=== PATIENT | male | born 1935 | race Caucasian/White ===

== ENCOUNTER 2018-11-02 08:14 | Emergency (ER) | payer MEDICARE, BC ==
[2018-11-02] MEDS ORDERED: Furosemide 40 MG/4 ML VIAL IVPUSH ONE (08:29)
[2018-11-02] MEDS ORDERED: Sodium Chloride 0.9% 10 ML Syringe FLUSH PRN (08:29)
[2018-11-02] MEDS ORDERED: Sodium Chloride 0.9% 2.5 ML Syringe FLUSH PRN (08:29)
[2018-11-02] MEDS ORDERED: Albuterol/Ipratropium 3.0-0.5 MG/3 ML Neb Soln NEB ONE (08:45)
[2018-11-02 09:04] LABS: CHLORIDE,CL 103 mmol/L (98-107); SODIUM,NA 141 mmol/L (136-148)
--- NOTE | 2018-11-02 09:44 | CR ---
HISTORY: Chest pain and shortness of breath. TECHNIQUE: One view of the chest. COMPARISON: No prior. FINDINGS: Cardiac size and pulmonary vasculature within normal limits. There is no consolidation or pulmonary edema. No pneumothorax or significant pleural effusion. IMPRESSION: No acute disease. Dictated by Tre Mukherjee MD @ 11/02/2018 9:41:02 AM Dictated by: Tre Mukherjee MD @ 11/02/2018 09:41:04 (Electronically Signed)
--- NOTE | 2018-11-02 11:02 | EDM.PDOC ---
ED HPI GENERAL MEDICAL PROBLEM - General Chief Complaint: Lower Extremity Injury/Pain Stated Complaint: LEG SWELLING AND PAIN SHORTNESS OF BREATH Time Seen by Provider: 11/02/18 08:18 Source of Information: Reports: Patient History Limitations: Reports: No Limitations - History of Present Illness INITIAL COMMENTS - FREE TEXT/NARRATIVE: History of present illness: []Patient comes in complaining of shortness of breath due to bloating in his abdomen and bilateral leg swelling that is worsening. He denies any chest or abdominal pain, fevers, chills, vomiting or diarrhea. Patient currently uses a CPAP machine at night but after a few minutes he gets claustrophobic and takes it off. Review of systems: As per history of present illness and below otherwise all systems reviewed and negative. Past medical history: As per history of present illness and as reviewed below otherwise noncontributory. Surgical history: As per history of present illness and as reviewed below otherwise noncontributory. Social history: No reported history of drug or alcohol abuse. Family history: As per history of present illness and as reviewed below otherwise noncontributory. Physical exam: General: Well developed, well nourished in NAD HEENT: Atraumatic, normocephalic, pupils reactive, negative for conjunctival pallor or scleral icterus, mucous membranes moist, throat clear, neck supple, nontender, trachea midline. Lungs: Clear to auscultation, no rales or wheezing breath sounds equal bilaterally, chest nontender. Heart: S1S2, regular, negative for clicks, rubs, or JVD. Bilateral 2+ lower leg edema Abdomen: Protuberant NABS, Soft, nondistended, nontender no rebound or guarding. Negative for masses or hepatosplenomegaly. Negative for costovertebral tenderness. Pelvis: Stable nontender. Genitourinary: Deferred. Rectal: Deferred. Extremities: Atraumatic, negative for cords or calf pain. Neurovascular unremarkable. Neuro: Awake, alert, oriented. Cranial nerves II through XII unremarkable. Cerebellum unremarkable. Motor and sensory unremarkable throughout. Exam nonfocal. Skin:warm and dry Diagnostics: EKG, chest x-ray CBC, chemistry, BNP, bilateral venous Doppler ultrasounds-all results are negative Therapeutics: DuoNeb given, Lasix ED Course: Stable, I offered admission to this patient as his O2 sats on oxygen approximately 93-94 but dropped into the high 80s on room air. He states he has oxygen at home does not want to be admitted and wants to follow-up his primary care. Impression: Bilateral lower extremity edema, COPD Prescriptions: None Plan: Patient has an appointment with Dr. Keys this week urged him to follow-up and to return to ER if symptoms worsen or change. Definitive disposition and diagnosis as appropriate pending reevaluation and review of above. Bilateral Knee Pain Score (Numeric/FACES): 8 - Related Data Allergies Allergy/AdvReac Type Severity Reaction Status Date / Time fish, paddle Allergy Abdominal Uncoded 11/02/18 08:30 Cramps Home Meds: Home Meds Albuterol Sulfate [Albuterol Sulfate HFA] 2.5 ml INH QID PRN 11/12/14 [History] Aspirin 81 mg PO DAILY 11/12/14 [History] Calcium Carbonate [Calcium] 500 mg PO DAILY 01/11/16 [History] Furosemide 40 mg PO BID PRN 01/11/16 [History] Omeprazole 40 mg PO ACBREAKFAST 01/11/16 [History] Potassium Chloride 20 meq PO DAILY 01/11/16 [History] Pramipexole Di-HCl [Pramipexole Dihydrochloride] 1 - 2 mg PO BEDTIME 03/13/18 [ History] Budesonide/Formoterol [Symbicort 160-4.5 MCG] 1 puff INH ASDIRECTED #1 inhaler 03/16/18 [Rx] Cephalexin [Keflex] 500 mg PO TID #30 capsule 11/02/18 [Rx] Past Medical History - Past Health History Medical/Surgical History: Denies Medical/Surgical History HEENT History: Reports: Hard of Hearing Other HEENT 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, 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 Cardiovascular History: Reports: None, SOB on Exertion Respiratory History: Reports: COPD, Sleep Apnea, SOB Other Respiratory History: Sleep apnea with CPAP Gastrointestinal History: Reports: GERD Other Genitourinary History: hx: Balanitis, nocturia Musculoskeletal History: Reports: Arthritis, Osteoarthritis Other Musculoskeletal History: hx: Concussion and they had to drill holes in head to relieve pressure (Many yrs ago), Low back pain, limited walking (has not been able to Golf), Arthritits to LEFT Knee Other Neuro History: Restless Legs Psychiatric History: Reports: None Endocrine/Metabolic History: Reports: Obesity/BMI 30+ Hematologic History: Reports: None Immunologic History: Reports: None Oncologic (Cancer) History: Reports: None Other Oncologic History: Several areas froze off his face Dermatologic History: Reports: Venous Stasis Dermatitis Other Dermatologic History: Thin delicate skin, has been on prednisone - Infectious Disease History Infectious Disease History: Reports: None - Past Surgical History HEENT Surgical History: Reports: Oral Surgery Cardiovascular Surgical History: Reports: None Respiratory Surgical History: Reports: None GI Surgical History: Reports: Colonoscopy Endocrine Surgical History: Reports: None Other Neurological Surgeries/Procedures: brain surgery Musculoskeletal Surgical History: Reports: Knee Replacement Other Musculoskeletal Surgeries/Procedures:: Right Total Knee Replacement - History Comment History Comment: ETOH UNKNOWN Social & Family History - Family History Family Medical History: Noncontributory Dermatologic: Reports: Other (See Below) Other Dermatologic Family History: Client stated, "I don't remember what my family from." - Tobacco Use Smoking Status *Q: Never Smoker Second Hand Smoke Exposure: No - Caffeine Use Caffeine Use: Reports: Coffee - Recreational Drug Use Recreational Drug Use: No - Living Situation & Occupation Living situation: Reports: , with Spouse Review of Systems - Review of Systems Review Of Systems: ROS reveals no pertinent complaints other than HPI. ED EXAM, GENERAL - Physical Exam Exam: See Below (See history of present illness) Course - Vital Signs Last Recorded V/S: Last Vital Signs Temp 96.9 F 11/02/18 08:28 Pulse 87 11/02/18 10:20 Resp 18 11/02/18 10:20 BP 133/72 11/02/18 10:20 Pulse Ox 91 L 11/02/18 10:20 - Orders/Labs/Meds Orders: Active Orders 24 hr Category Date Time Status EKG Documentation Completion [RC] STAT Care 11/02/18 08:29 Active Oxygen Therapy, ED [RC] ASDIRECTED Care 11/02/18 10:09 Active RT Aerosol Therapy [RC] ASDIRECTED Care 11/02/18 08:45 Active Venous Doppler Lwr Ext Bi [US] Stat Exams 11/02/18 09:20 Taken Sodium Chloride 0.9% [Saline Flush] Med 11/02/18 08:29 Active 10 ml FLUSH ASDIRECTED PRN Sodium Chloride 0.9% [Saline Flush] Med 11/02/18 08:29 Active 2.5 ml FLUSH ASDIRECTED PRN Saline Lock Insert [OM.PC] Stat Oth 11/02/18 08:29 Ordered Medication Orders Sodium Chloride (Saline Flush) 10 ml FLUSH ASDIRECTED PRN PRN Reason: Keep Vein Open Last Admin: 11/02/18 08:42 Dose: 10 ml Sodium Chloride (Saline Flush) 2.5 ml FLUSH ASDIRECTED PRN PRN Reason: Keep Vein Open Last Admin: 11/02/18 08:42 Dose: 2.5 ml Labs: Laboratory Tests 11/02/18 11/02/18 11/02/18 Range/Units 08:35 08:35 08:35 WBC 5.01 (4.0-11.0) K/uL RBC 3.71 L (4.50-5.90) M/uL Hgb 12.7 L (13.0-17.0) g/dL Hct 39.1 (38.0-50.0) % MCV 105.4 H (80.0-98.0) fL MCH 34.2 H (27.0-32.0) pg MCHC 32.5 (31.0-37.0) g/dL RDW Std Deviation 61.8 (28.0-62.0) fl RDW Coeff of Yared 16 H (11.0-15.0) % Plt Count 164 (150-400) K/uL MPV 10.30 (7.40-12.00) fL Neut % (Auto) 58.5 (48.0-80.0) % Lymph % (Auto) 25.3 (16.0-40.0) % [place] % (Auto) 13.4 (0.0-15.0) % Eos % (Auto) 2.4 (0.0-7.0) % Baso % (Auto) 0.4 (0.0-1.5) % Neut # (Auto) 2.9 (1.4-5.7) K/uL Lymph # (Auto) 1.3 (0.6-2.4) K/uL [place] # (Auto) 0.7 (0.0-0.8) K/uL Eos # (Auto) 0.1 (0.0-0.7) K/uL Baso # (Auto) 0.0 (0.0-0.1) K/uL Nucleated RBC % 0.0 /100WBC Nucleated RBCs # 0 K/uL Sodium 141 (136-148) mmol/L Potassium 3.8 (3.5-5.1) mmol/L Chloride 103 (98-107) mmol/L Carbon Dioxide 30.1 (21.0-32.0) mmol/L BUN 26 H (7.0-18.0) mg/dL Creatinine 1.0 (0.8-1.3) mg/dL Est Cr Clr Drug Dosing 55.97 mL/min Estimated GFR (MDRD) > 60.0 ml/min Glucose 136 H (74-106) mg/dL Calcium 9.0 (8.5-10.1) mg/dL Total Bilirubin 0.8 (0.2-1.0) mg/dL AST 30 (15-37) IU/L ALT 24 (14-63) IU/L Alkaline Phosphatase 72 (46-116) U/L B-Natriuretic Peptide 40 (<100) PG/ML Total Protein 7.2 (6.4-8.2) g/dL Albumin 3.7 (3.4-5.0) g/dL Globulin 3.5 (2.6-4.0) g/dL Albumin/Globulin Ratio 1.1 (0.9-1.6) Meds: Medications Generic Name Dose Route Start Last Admin Trade Name Freq PRN Reason Stop Dose Admin Sodium Chloride 10 ml 11/02/18 08:29 11/02/18 08:42 Saline Flush FLUSH 10 ml ASDIRECTED PRN Administration Keep Vein Open Sodium Chloride 2.5 ml 11/02/18 08:29 11/02/18 08:42 Saline Flush FLUSH 2.5 ml ASDIRECTED PRN Administration Keep Vein Open Discontinued Medications Generic Name Dose Route Start Last Admin Trade Name Freq PRN Reason Stop Dose Admin Albuterol/Ipratropium 3 ml 11/02/18 08:45 11/02/18 08:56 Duoneb 3.0-0.5 Mg/3 Ml NEB 11/02/18 08:46 3 ml ONETIME ONE Administration Furosemide 40 mg 11/02/18 08:29 11/02/18 08:42 Lasix IVPUSH 11/02/18 08:30 40 mg NOW ONE Administration Departure - Departure Time of Disposition: 11:01 Disposition: Home, Self-Care 01 Condition: Good, Fair Clinical Impression: COPD exacerbation, Bilateral lower extremity edema - Discharge Information *PRESCRIPTION DRUG MONITORING PROGRAM REVIEWED*: No *COPY OF PRESCRIPTION DRUG MONITORING REPORT IN PATIENT MICHELLE: No Prescriptions: Cephalexin [Keflex] 500 mg PO TID #30 capsule Referrals: PCP,Unknown [Primary Care Provider] - Forms: ED Department Discharge Additional Instructions: The following information is given to patients seen in the emergency department who are being discharged to home. This information is to outline your options for follow-up care. We provide all patients seen in our emergency department with a follow-up referral. The need for follow-up, as well as the timing and circumstances, are variable depending upon the specifics of your emergency department visit. If you don't have a primary care physician on staff, we will provide you with a referral. We always advise you to contact your personal physician following an emergency department visit to inform them of the circumstance of the visit and for follow-up with them and/or the need for any referrals to a consulting specialist. The emergency department will also refer you to a specialist when appropriate. This referral assures that you have the opportunity for follow-up care with a specialist. All of these measure are taken in an effort to provide you with optimal care, which includes your follow-up. Under all circumstances we always encourage you to contact your private physician who remains a resource for coordinating your care. When calling for follow-up care, please make the office aware that this follow-up is from your recent emergency room visit. If for any reason you are refused follow-up, please contact the [facility] Emergency Department at and asked to speak to the emergency department charge nurse. Take meds as directed, follow up with your primary care physician, return to ER if symptoms worsen or change. [facility] [address] [place] [id number] - My Orders Last 24 Hours: My Active Orders 11/02/18 08:29 EKG Documentation Completion [RC] STAT Sodium Chloride 0.9% [Saline Flush] 10 ml FLUSH ASDIRECTED PRN Sodium Chloride 0.9% [Saline Flush] 2.5 ml FLUSH ASDIRECTED PRN Saline Lock Insert [OM.PC] Stat 11/02/18 08:45 RT Aerosol Therapy [RC] ASDIRECTED 11/02/18 09:20 Venous Doppler Lwr Ext Bi [US] Stat 11/02/18 10:09 Oxygen Therapy, ED [RC] ASDIRECTED - Assessment/Plan Last 24 Hours: My Active Orders 11/02/18 08:29 EKG Documentation Completion [RC] STAT Sodium Chloride 0.9% [Saline Flush] 10 ml FLUSH ASDIRECTED PRN Sodium Chloride 0.9% [Saline Flush] 2.5 ml FLUSH ASDIRECTED PRN Saline Lock Insert [OM.PC] Stat 11/02/18 08:45 RT Aerosol Therapy [RC] ASDIRECTED 11/02/18 09:20 Venous Doppler Lwr Ext Bi [US] Stat 11/02/18 10:09 Oxygen Therapy, ED [RC] ASDIRECTED
[2018-11-02 11:12] VITALS: BP 151/78
--- NOTE | 2018-11-02 15:45 | US ---
INDICATION: Bilateral lower extremity pain and swelling TECHNIQUE: : Ultrasound venous duplex lower extremity bilateral. Compression venous exam was performed using parsons-scale, color Doppler, and spectral Doppler imaging. COMPARISON: FINDINGS: Sonographic imaging demonstrates the common femoral, deep femoral, superficial femoral, popliteal, posterior tibial and greater saphenous veins to be fully compressible with normal color Doppler blood flow in both lower extremities. Distal bilateral lower extremity edema is noted. IMPRESSION: Normal bilateral lower extremity venous ultrasound, no sign of deep venous thrombosis. Dictated by Iván Hamlin MD @ 11/02/2018 10:49:26 AM Dictated by: Iván Hamlin MD @ 11/02/2018 10:49:37 (Electronically Signed)
== END 2018-11-02 11:14 | disposition home or self-care (01) ==
LOC: MW.ED 08:14
DX: J44.1 Chronic obstructive pulmonary disease with (acute) exacerbation (principal); R60.0 Localized edema; E66.9 Obesity, unspecified; Z79.82 Long term (current) use of aspirin; Z79.899 Other long term (current) drug therapy; Z68.42 Body mass index [BMI] 45.0-49.9, adult
CPT/HCPCS: 36415; 71045; 80053; 83880; 85025; 93005; 93970; 94640; 96374; 99284; J1940; J7620-GY

== ENCOUNTER 2019-10-22 17:33 | Observation (INO) | payer MEDICARE, BC ==
[2019-10-22] MEDS ORDERED: cefTRIAXone 2 GM in Premix Bag 1 BAG IV ONE (18:45)
--- NOTE | 2019-10-22 18:52 | EDM.PDOC ---
<Wilver Alonso - Last Filed: 10/22/19 18:47> ED HPI GENERAL MEDICAL PROBLEM - General Chief Complaint: Skin Complaint Stated Complaint: sick Time Seen by Provider: 10/22/19 17:57 - History of Present Illness INITIAL COMMENTS - FREE TEXT/NARRATIVE: HISTORY AND PHYSICAL: History of present illness: This 83-year-old male presents emergency department left leg pain. Patient states it is severe in nature. He has had cellulitis before and has been hospitalized for this. He complains that he is now having extreme left-sided leg pain. He denies any current fever. He states that the pain comes and goes. It is in the left leg and radiates from the calf up towards the thigh. Review of systems: A 10-point review of systems, other than pertinent positives and negatives as stated per HPI, is otherwise negative. Past medical history: As per history of present illness and as reviewed below otherwise noncontributory. Surgical history: As per history of present illness and as reviewed below otherwise noncontributory. Social history: No reported history of drug or alcohol abuse. Family history: As per history of present illness and as reviewed below otherwise noncontributory. Physical exam: VITAL SIGNS: Reviewed. GENERAL: Appears very uncomfortable. HEAD: No signs of head trauma. EYES: Pupils are equal. Extraocular motions intact. EARS: Hearing grossly intact. MOUTH: Oropharynx is normal. NECK: No adenopathy, no JVD. CHEST: Mild tachypnea. Diminished breath sounds in the bases. I do not appreciate any adventitious breath sounds. CARDIAC: Regular rate and rhythm. Normal S1 and S2, without murmurs, gallops, or rubs. VASCULAR: Peripheral pulses normal and equal in all extremities. ABDOMEN: Soft, without detectable tenderness. No sign of distention. No rebound or guarding, and no masses palpated. MUSCULOSKELETAL: Good range of motion of all major joints. Extremities without clubbing, cyanosis or edema. NEUROLOGIC EXAM: Alert and oriented x 3. No focal sensory or motor deficits. Speech normal. Follows commands. PSYCHIATRIC: Mood normal. SKIN: Bilateral lower extremity hemosiderin deposition. There is some scalded skin appearance to both legs worse on the left than on the right. There is a significant amount of discoloration in bilateral pedal edema. Initial Differential Diagnosis & Plan: The patient has an erythematous left lower extremity. The rash is not pruritic. Differential diagnosis: -Necrotizing fascitis was considered. There does not appear to be disproportionate pain, dusky appearance, induration, crepitus, bullae, ecchymoses, or pain beyond the visibly affected area -DVT was considered, and I have ordered a lower extremity ultrasound. -abscess was considered, but there is no fluctuance, drainage, or induration. -cellulitis appears to be the most likely explanation of the patient's symptoms. I also considered pseudo-cellulitis, this would normally be seen as bilateral edema. This is highly suspicious in this patient. Other impersonator's of cellulitis were also considered including lipodermatosclerosis, erysipelas, contact dermatitis, or metal hypersensitivity , lymphedema, gout, erythema migrans, and cryptococcal cellulitis (seen with AIDS patients). I doubt calciphylaxis given that the patient does not have end-stage renal disease, liver disease or taking warfarin. I will be turning over patient care to Dr. Juanpablo Sanchez, DO Definitive disposition and diagnosis as appropriate pending reevaluation and review of above. Bilateral Lower Leg Pain Score (Numeric/FACES): 4 - Related Data Allergies Allergy/AdvReac Type Severity Reaction Status Date / Time fish, paddle Allergy Abdominal Uncoded 10/22/19 22:39 Cramps Home Meds: Home Meds Albuterol Sulfate [Albuterol Sulfate HFA] 2.5 ml INH QID PRN 11/12/14 [History] Calcium Carbonate [Calcium] 500 mg PO DAILY 01/11/16 [History] Furosemide 60 mg PO DAILY PRN 01/11/16 [History] Omeprazole 40 mg PO ACBREAKFAST 01/11/16 [History] Potassium Chloride 20 meq PO DAILY 01/11/16 [History] Pramipexole Di-HCl [Pramipexole Dihydrochloride] 1 - 2 mg PO BEDTIME 03/13/18 [ History] Albuterol/Ipratropium [DuoNeb 3.0-0.5 MG/3 ML] 3 ml NEB QID 10/22/19 [History] Aspirin 81 mg PO DAILY 10/22/19 [History] Fish Oil/Kegley-3 Fatty Acids [Fish Oil 1,000 MG] 1 each PO DAILY 10/22/19 [ History] Fluticasone/Umeclidin/Vilanter [Trelegy Ellipta 100-62.5-25 MCG] 1 puff INH ONETIME 10/22/19 [History] Magnesium 30 mg PO DAILY 10/22/19 [History] Past Medical History - Past Health History Medical/Surgical History: Denies Medical/Surgical History HEENT History: Reports: Hard of Hearing Other HEENT 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, 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 Cardiovascular History: Reports: None, SOB on Exertion Respiratory History: Reports: COPD, Sleep Apnea, SOB Other Respiratory History: Sleep apnea with CPAP Gastrointestinal History: Reports: GERD Other Genitourinary History: hx: Balanitis, nocturia Musculoskeletal History: Reports: Arthritis, Osteoarthritis Other Musculoskeletal History: hx: Concussion and they had to drill holes in head to relieve pressure (Many yrs ago), Low back pain, limited walking (has not been able to Golf), Arthritits to LEFT Knee Neurological History: Reports: Other (See Below) Other Neuro History: Restless Legs Psychiatric History: Reports: None Endocrine/Metabolic History: Reports: Obesity/BMI 30+ Hematologic History: Reports: None Immunologic History: Reports: None Oncologic (Cancer) History: Reports: None Other Oncologic History: Several areas froze off his face Dermatologic History: Reports: Venous Stasis Dermatitis Other Dermatologic History: Thin delicate skin - Infectious Disease History Infectious Disease History: Reports: Chicken Pox, Influenza, Measles, Mumps - Past Surgical History HEENT Surgical History: Reports: Oral Surgery Cardiovascular Surgical History: Reports: None Respiratory Surgical History: Reports: None GI Surgical History: Reports: Colonoscopy Endocrine Surgical History: Reports: None Other Neurological Surgeries/Procedures: brain surgery Musculoskeletal Surgical History: Reports: Knee Replacement Other Musculoskeletal Surgeries/Procedures:: Right Total Knee Replacement - History Comment History Comment: ETOH UNKNOWN Social & Family History - Family History Family Medical History: Noncontributory Dermatologic: Reports: Other (See Below) Other Dermatologic Family History: Client stated, "I don't remember what my family from." - Tobacco Use Smoking Status *Q: Former Smoker Used Tobacco, but Quit: Yes Month/Year Tobacco Last Used: 05/1979 Second Hand Smoke Exposure: No - Caffeine Use Caffeine Use: Reports: Coffee - Recreational Drug Use Recreational Drug Use: No - Living Situation & Occupation Living situation: Reports: , with Spouse Course - Vital Signs Last Recorded V/S: Last Vital Signs Temp 36.7 C 10/22/19 22:00 Pulse 67 10/22/19 22:00 Resp 22 H 10/22/19 22:00 BP 140/69 10/22/19 22:00 Pulse Ox 92 L 10/22/19 22:00 - Orders/Labs/Meds Orders: Active Orders 24 hr Category Date Time Status EKG 12 Lead [EKG Documentation Completion] [RC] STAT Care 10/22/19 18:44 Active CULTURE BLOOD [BC] Stat Lab 10/22/19 19:08 Received CULTURE BLOOD [BC] Stat Lab 10/22/19 19:21 Received CULTURE URINE [RM] Stat Lab 10/22/19 21:00 Received Blood Culture x2 Reflex Set [OM.PC] Stat Oth 10/22/19 18:45 Ordered Medication Orders Albuterol (Proventil Hfa) gm INH QID PRN PRN Reason: Shortness of Breath Albuterol/Ipratropium (Duoneb 3.0-0.5 Mg/3 Ml) 3 ml NEB QID KIRAN Last Admin: 10/23/19 00:26 Dose: 3 ml Aspirin (Aspirin) 81 mg PO DAILY KIRAN Calcium Carbonate/Glycine (Tums) 500 mg PO DAILY KIRAN Furosemide (Lasix) 60 mg PO DAILY PRN PRN Reason: Edema Heparin Sodium (Porcine) (Heparin Sodium) 5,000 units SUBCUT Q12HR [facility] Omeprazole (Omeprazole) 40 mg PO ACBREAKFAST [facility] Potassium Chloride (Klor-Con M20) 20 meq PO DAILY [facility] Pramipexole Dihydrochloride (Mirapex) 1 mg PO BEDTIME [facility] Labs: Laboratory Tests 10/22/19 10/22/19 10/22/19 Range/Units 19:08 19:08 19:08 WBC 7.06 (4.0-11.0) K/uL RBC 3.89 L (4.50-5.90) M/uL Hgb 13.4 (13.0-17.0) g/dL Hct 40.4 (38.0-50.0) % MCV 103.9 H (80.0-98.0) fL MCH 34.4 H (27.0-32.0) pg MCHC 33.2 (31.0-37.0) g/dL RDW Std Deviation 58.1 (28.0-62.0) fl RDW Coeff of Yared 15 (11.0-15.0) % Plt Count 181 (150-400) K/uL MPV 10.00 (7.40-12.00) fL Neut % (Auto) 61.6 (48.0-80.0) % Lymph % (Auto) 23.7 (16.0-40.0) % Walker % (Auto) 12.3 (0.0-15.0) % Eos % (Auto) 1.8 (0.0-7.0) % Baso % (Auto) 0.6 (0.0-1.5) % Neut # (Auto) 4.4 (1.4-5.7) K/uL Lymph # (Auto) 1.7 (0.6-2.4) K/uL Walker # (Auto) 0.9 H (0.0-0.8) K/uL Eos # (Auto) 0.1 (0.0-0.7) K/uL Baso # (Auto) 0.0 (0.0-0.1) K/uL Nucleated RBC % 0.0 /100WBC Nucleated RBCs # 0 K/uL Lactate 0.9 (0.20-2.00) mmol/L Sodium 140 (136-148) mmol/L Potassium 3.5 (3.5-5.1) mmol/L Chloride 101 (98-107) mmol/L Carbon Dioxide 32.8 H (21.0-32.0) mmol/L BUN 17 (7.0-18.0) mg/dL Creatinine 1.1 (0.8-1.3) mg/dL Est Cr Clr Drug Dosing 51.62 mL/min Estimated GFR (MDRD) > 60.0 ml/min Glucose 163 H (74-106) mg/dL Calcium 9.5 (8.5-10.1) mg/dL Magnesium 2.1 (1.8-2.4) mg/dL Total Bilirubin 1.1 H (0.2-1.0) mg/dL AST 31 (15-37) IU/L ALT 30 (14-63) IU/L Alkaline Phosphatase 65 (46-116) U/L Troponin I < 0.050 (0.000-0.056) ng/mL B-Natriuretic Peptide (<100) PG/ML Total Protein 6.5 (6.4-8.2) g/dL Albumin 3.4 (3.4-5.0) g/dL Globulin 3.1 (2.6-4.0) g/dL Albumin/Globulin Ratio 1.1 (0.9-1.6) 10/22/19 Range/Units 19:08 WBC (4.0-11.0) K/uL RBC (4.50-5.90) M/uL Hgb (13.0-17.0) g/dL Hct (38.0-50.0) % MCV (80.0-98.0) fL MCH (27.0-32.0) pg MCHC (31.0-37.0) g/dL RDW Std Deviation (28.0-62.0) fl RDW Coeff of Yared (11.0-15.0) % Plt Count (150-400) K/uL MPV (7.40-12.00) fL Neut % (Auto) (48.0-80.0) % Lymph % (Auto) (16.0-40.0) % Walker % (Auto) (0.0-15.0) % Eos % (Auto) (0.0-7.0) % Baso % (Auto) (0.0-1.5) % Neut # (Auto) (1.4-5.7) K/uL Lymph # (Auto) (0.6-2.4) K/uL Walker # (Auto) (0.0-0.8) K/uL Eos # (Auto) (0.0-0.7) K/uL Baso # (Auto) (0.0-0.1) K/uL Nucleated RBC % /100WBC Nucleated RBCs # K/uL Lactate (0.20-2.00) mmol/L Sodium (136-148) mmol/L Potassium (3.5-5.1) mmol/L Chloride (98-107) mmol/L Carbon Dioxide (21.0-32.0) mmol/L BUN (7.0-18.0) mg/dL Creatinine (0.8-1.3) mg/dL Est Cr Clr Drug Dosing mL/min Estimated GFR (MDRD) ml/min Glucose (74-106) mg/dL Calcium (8.5-10.1) mg/dL Magnesium (1.8-2.4) mg/dL Total Bilirubin (0.2-1.0) mg/dL AST (15-37) IU/L ALT (14-63) IU/L Alkaline Phosphatase (46-116) U/L Troponin I (0.000-0.056) ng/mL B-Natriuretic Peptide 21 (<100) PG/ML Total Protein (6.4-8.2) g/dL Albumin (3.4-5.0) g/dL Globulin (2.6-4.0) g/dL Albumin/Globulin Ratio (0.9-1.6) Meds: Medications Generic Name Dose Route Start Last Admin Trade Name Freq PRN Reason Stop Dose Admin Albuterol gm 10/22/19 22:53 Proventil Hfa INH QID PRN Shortness of Breath Albuterol/Ipratropium 3 ml 10/23/19 00:00 10/23/19 00:26 Duoneb 3.0-0.5 Mg/3 Ml NEB 3 ml QID KIRAN Administration Aspirin 81 mg 10/23/19 09:00 Aspirin PO DAILY [facility] Calcium Carbonate/Glycine 500 mg 10/23/19 09:00 Tums PO DAILY KIRAN Furosemide 60 mg 10/22/19 22:53 Lasix PO DAILY PRN Edema Heparin Sodium (Porcine) 5,000 units 10/23/19 09:00 Heparin Sodium SUBCUT Q12HR [facility] Omeprazole 40 mg 10/23/19 07:30 Omeprazole PO ACBREAKFAST [facility] Potassium Chloride 20 meq 10/23/19 09:00 Klor-Con M20 PO DAILY [facility] Pramipexole Dihydrochloride 1 mg 10/23/19 21:00 Mirapex PO BEDTIME KIRAN Discontinued Medications Generic Name Dose Route Start Last Admin Trade Name Freq PRN Reason Stop Dose Admin Ceftriaxone Sodium/Dextrose 2 50 mls @ 100 mls/hr 10/22/19 18:45 10/22/19 19: 39 gm/ Premix IV 10/22/19 19:14 100 mls/hr ONETIME ONE Administration Oxycodone/Acetaminophen 2 tab 10/22/19 19:51 10/22/19 19:59 Percocet 325-5 Mg PO 10/22/19 19:52 2 tab ONETIME ONE Administration Departure - Departure Disposition: Refer to Observation Clinical Impression: Cellulitis of lower extremity Qualifiers: Laterality: left Qualified Code(s): L03.116 - Cellulitis of left lower limb - Discharge Information Sepsis Event Note - Evaluation Sepsis Screening Result: No Definite Risk - Focused Exam Vital Signs: Vital Signs Temp Pulse Resp BP Pulse Ox 10/22/19 20:19 37.1 C 67 20 100/60 92 L 10/22/19 18:06 37.0 C 78 21 H 138/82 92 L Date Exam was Performed: 10/22/19 Time Exam was Performed: 18:47 <Juanpablo Sanchez - Last Filed: 10/23/19 00:44> ED ROS GENERAL - Review of Systems Review Of Systems: See Below ED EXAM, SKIN/RASH Exam: See Below Course - Vital Signs Text/Narrative:: I assumed care of this patient [address] Alonso. He received antibiotics for cellulitis. There is also some concern for possible DVT, although this could also be venous stasis dermatitis. We are waiting for a DVT ultrasound study and the rest of his labs to return. We are planning for admission. Lactate is normal. CBC shows no leukocytosis. Chest x-ray shows no acute findings. We are waiting for a urinalysis, troponin , magnesium, CMP, and a BMP along with a twelve-lead EKG. 8:25 PM: CBC is reassuring. Lactate is negative. Labs show mild hyperglycemia , mild bilirubin elevation of 1.1. Negative troponin, negative BNP. Awaiting urinalysis. Troponin is negative. Urinalysis has small leukocyte esterase and 1+ bacteria, but the patient denies any dysuria or other symptoms to suggest acute cystitis. He did complain of some persistent pain so I ordered oral Percocet. Given concern for possible cellulitis, will plan to admit the patient to observation status. I spoke with the accepting hospitalist Dr. Brian Cortez who agrees to admit to observation. Departure - Departure Time of Disposition: 19:00 Sepsis Event Note - Focused Exam Date Exam was Performed: 10/23/19 Time Exam was Performed: 00:44
--- NOTE | 2019-10-22 19:08 | CR ---
Chest: Portable view of the chest was obtained. Comparison: Previous chest x-ray of 11/02/18. Lung bases are not optimally seen due to body habitus. Lungs otherwise are clear. Heart size appears within normal limits for portable technique. Tortuous thoracic aorta is seen. Bony structures are grossly intact. Impression: 1. Lung base is not optimally seen due to body habitus. 2. Nothing acute is otherwise appreciated on portable chest x-ray. Diagnostic code #2 This report was dictated in MDT
[2019-10-22 19:42] LABS: BLOOD UREA NITROGEN,BUN 17 mg/dL (7.0-18.0); CARBON DIOXIDE,CO2 32.8 mmol/L (21.0-32.0); CHLORIDE,CL 101 mmol/L (98-107); GLUCOSE RANDOM 163 mg/dL (74-106); POTASSIUM,K 3.5 mmol/L (3.5-5.1); SODIUM,NA 140 mmol/L (136-148)
[2019-10-22] MEDS ORDERED: Acetaminophen/oxyCODONE 325-5 MG Tab PO ONE (19:51)
--- NOTE | 2019-10-22 19:57 | US ---
Bilateral lower extremity deep venous ultrasound: Duplex and color Doppler evaluation was obtained of the right and left common femoral, superficial femoral, popliteal, posterior tibial and anterior tibial veins. Findings: Subcutaneous edema noted within both lower extremities. Normal compression and Doppler blood flow is seen within the deep veins. Impression: 1. Subcutaneous edema within both lower extremities. 2. No findings of deep venous thrombosis is seen within either the right or left lower extremity. Diagnostic code #2 This report was dictated in MDT
[2019-10-22] MEDS ORDERED: Albuterol 8 GM Inhaler INH PRN (22:53)
[2019-10-22] MEDS ORDERED: Furosemide 40 MG Tab PO PRN (22:53)
--- NOTE | 2019-10-22 23:02 | PCM.HP.2 ---
H&P History of Present Illness - General Date of Service: 10/22/19 Admit Problem/Dx: Admission Diagnosis/Problem Admission Diagnosis/Problem Cellulitis - History of Present Illness Initial Comments - Free Text/Narative: 83 yo male with pmh chronic venous stasis to lower legs, COPD, obesity, restless leg syndrome, AMRITA and lymphedema presented who was hospitalized in [place] ten days ago for left leg cellulitis. Yesterday he completed a ten day course of cefdinir. Today he reports pain in his left leg with increased swelling and erythema. He denies any fevers. He was seen in the ED and had a Doppler of the left leg which was negative for DVT. He was given Rocephin for possible cellulitis. He reports that his erythema and edema have returned to normal and the pain has resolved. Bilateral Lower Leg Pain Score (Numeric/FACES): 4 - Related Data Allergies/Adverse Reactions: Allergies Allergy/AdvReac Type Severity Reaction Status Date / Time fish, paddle Allergy Abdominal Uncoded 10/22/19 22:39 Cramps Home Medications: Home Meds Albuterol Sulfate [Albuterol Sulfate HFA] 2.5 ml INH QID PRN 11/12/14 [History] Calcium Carbonate [Calcium] 500 mg PO DAILY 01/11/16 [History] Furosemide 80 mg PO DAILY 01/11/16 [History] Omeprazole 40 mg PO ACBREAKFAST 01/11/16 [History] Potassium Chloride 20 meq PO BID 01/11/16 [History] Pramipexole Di-HCl [Pramipexole Dihydrochloride] 1 - 2 mg PO BEDTIME 03/13/18 [ History] Aspirin 81 mg PO DAILY 10/22/19 [History] Fish Oil/[place]-3 Fatty Acids [Fish Oil 1,000 MG] 1 each PO DAILY 10/22/19 [ History] Fluticasone/Umeclidin/Vilanter [Trelegy Ellipta 100-62.5-25 MCG] 1 puff INH DAILY 10/22/19 [History] Magnesium 400 mg PO DAILY 10/22/19 [History] Acetaminophen/HYDROcodone [[place] 325-5 MG] 1 tab PO Q6H PRN #5 tablet 10/23/19 [ Rx] Ipratropium [Atrovent] 0.5 mg NEB QID 10/23/19 [History] Multivitamin 1 tab PO DAILY 10/23/19 [History] metOLazone [Metolazone] 2.5 mg PO MOWEFR 10/23/19 [History] Past Medical History - Past Health History Medical/Surgical History: Denies Medical/Surgical History HEENT History: Reports: Hard of Hearing Other HEENT 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, 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 Cardiovascular History: Reports: None, SOB on Exertion Respiratory History: Reports: COPD, Sleep Apnea, SOB Other Respiratory History: Sleep apnea with CPAP Gastrointestinal History: Reports: GERD Other Genitourinary History: hx: Balanitis, nocturia Musculoskeletal History: Reports: Arthritis, Osteoarthritis Other Musculoskeletal History: hx: Concussion and they had to drill holes in head to relieve pressure (Many yrs ago), Low back pain, limited walking (has not been able to Golf), Arthritits to LEFT Knee Neurological History: Reports: Other (See Below) Other Neuro History: Restless Legs Psychiatric History: Reports: None Endocrine/Metabolic History: Reports: Obesity/BMI 30+ Hematologic History: Reports: None Immunologic History: Reports: None Oncologic (Cancer) History: Reports: None Other Oncologic History: Several areas froze off his face Dermatologic History: Reports: Venous Stasis Dermatitis Other Dermatologic History: Thin delicate skin - Infectious Disease History Infectious Disease History: Reports: Chicken Pox, Influenza, Measles, Mumps - Past Surgical History HEENT Surgical History: Reports: Oral Surgery Cardiovascular Surgical History: Reports: None Respiratory Surgical History: Reports: None GI Surgical History: Reports: Colonoscopy Endocrine Surgical History: Reports: None Other Neurological Surgeries/Procedures: brain surgery Musculoskeletal Surgical History: Reports: Knee Replacement Other Musculoskeletal Surgeries/Procedures:: Right Total Knee Replacement - History Comment History Comment: ETOH UNKNOWN Social & Family History - Family History Family Medical History: Noncontributory Dermatologic: Reports: Other (See Below) Other Dermatologic Family History: Client stated, "I don't remember what my family from." - Tobacco Use Smoking Status *Q: Former Smoker Used Tobacco, but Quit: Yes Month/Year Tobacco Last Used: 05/1987 Second Hand Smoke Exposure: No - Caffeine Use Caffeine Use: Reports: Coffee - Alcohol Use Days Per Week of Alcohol Use: 1 Number of Drinks Per Day: 0 Total Drinks Per Week: 0 Date of Last Drink: 10/14/19 - Recreational Drug Use Recreational Drug Use: No - Living Situation & Occupation Living situation: Reports: , with Spouse H&P Review of Systems - Review of Systems: Review Of Systems: Comprehensive ROS is negative, except as noted in HPI. Exam - Exam Exam: See Below - Vital Signs Vital Signs: Last Vital Signs Temp 36.7 C 10/22/19 22:00 Pulse 67 10/22/19 22:00 Resp 22 H 10/22/19 22:00 BP 140/69 10/22/19 22:00 Pulse Ox 92 L 10/22/19 22:00 Weight: 145.059 kg - Exam General: Alert, Oriented, Other (obese) HEENT: Mucosa Moist & [place] Neck: Supple Lungs: Clear to Auscultation, Normal Respiratory Effort Cardiovascular: Regular Rate, Regular Rhythm GI/Abdominal Exam: Soft, Non-Tender Extremities: Other (bilateral erythema of lower legs consistent with chronic venous status changes) Neurological: Cranial Nerves Intact. No: Focal Deficit - Patient Data Lab Results Last 24 hrs: Laboratory Results - last 24 hr 10/22/19 10/22/19 10/22/19 Range/Units 19:08 19:08 19:08 WBC 7.06 (4.0-11.0) K/uL RBC 3.89 L (4.50-5.90) M/uL Hgb 13.4 (13.0-17.0) g/dL Hct 40.4 (38.0-50.0) % MCV 103.9 H (80.0-98.0) fL MCH 34.4 H (27.0-32.0) pg MCHC 33.2 (31.0-37.0) g/dL RDW Std Deviation 58.1 (28.0-62.0) fl RDW Coeff of Yared 15 (11.0-15.0) % Plt Count 181 (150-400) K/uL MPV 10.00 (7.40-12.00) fL Neut % (Auto) 61.6 (48.0-80.0) % Lymph % (Auto) 23.7 (16.0-40.0) % [place] % (Auto) 12.3 (0.0-15.0) % Eos % (Auto) 1.8 (0.0-7.0) % Baso % (Auto) 0.6 (0.0-1.5) % Neut # (Auto) 4.4 (1.4-5.7) K/uL Lymph # (Auto) 1.7 (0.6-2.4) K/uL [place] # (Auto) 0.9 H (0.0-0.8) K/uL Eos # (Auto) 0.1 (0.0-0.7) K/uL Baso # (Auto) 0.0 (0.0-0.1) K/uL Nucleated RBC % 0.0 /100WBC Nucleated RBCs # 0 K/uL Lactate 0.9 (0.20-2.00) mmol/L Sodium 140 (136-148) mmol/L Potassium 3.5 (3.5-5.1) mmol/L Chloride 101 (98-107) mmol/L Carbon Dioxide 32.8 H (21.0-32.0) mmol/L BUN 17 (7.0-18.0) mg/dL Creatinine 1.1 (0.8-1.3) mg/dL Est Cr Clr Drug Dosing 51.62 mL/min Estimated GFR (MDRD) > 60.0 ml/min Glucose 163 H (74-106) mg/dL Calcium 9.5 (8.5-10.1) mg/dL Magnesium 2.1 (1.8-2.4) mg/dL Total Bilirubin 1.1 H (0.2-1.0) mg/dL AST 31 (15-37) IU/L ALT 30 (14-63) IU/L Alkaline Phosphatase 65 (46-116) U/L Troponin I < 0.050 (0.000-0.056) ng/mL B-Natriuretic Peptide (<100) PG/ML Total Protein 6.5 (6.4-8.2) g/dL Albumin 3.4 (3.4-5.0) g/dL Globulin 3.1 (2.6-4.0) g/dL Albumin/Globulin Ratio 1.1 (0.9-1.6) Urine Color Urine Appearance Urine pH (5.0-8.0) Ur Specific [place] (1.001-1.035) Urine Protein (NEGATIVE) mg/dL Urine Glucose (UA) (NEGATIVE) mg/dL Urine Ketones (NEGATIVE) mg/dL Urine Occult Blood (NEGATIVE) Urine Nitrite (NEGATIVE) Urine Bilirubin (NEGATIVE) Urine Urobilinogen (<2.0) EU/dL Ur Leukocyte Esterase (NEGATIVE) Urine RBC (0-2/HPF) Urine WBC (0-5/HPF) Ur Epithelial Cells (NONE-FEW) Urine Bacteria (NEGATIVE) Urine Mucus (NONE-MOD) 10/22/19 10/22/19 Range/Units 19:08 21:00 WBC (4.0-11.0) K/uL RBC (4.50-5.90) M/uL Hgb (13.0-17.0) g/dL Hct (38.0-50.0) % MCV (80.0-98.0) fL MCH (27.0-32.0) pg MCHC (31.0-37.0) g/dL RDW Std Deviation (28.0-62.0) fl RDW Coeff of Yared (11.0-15.0) % Plt Count (150-400) K/uL MPV (7.40-12.00) fL Neut % (Auto) (48.0-80.0) % Lymph % (Auto) (16.0-40.0) % [place] % (Auto) (0.0-15.0) % Eos % (Auto) (0.0-7.0) % Baso % (Auto) (0.0-1.5) % Neut # (Auto) (1.4-5.7) K/uL Lymph # (Auto) (0.6-2.4) K/uL [place] # (Auto) (0.0-0.8) K/uL Eos # (Auto) (0.0-0.7) K/uL Baso # (Auto) (0.0-0.1) K/uL Nucleated RBC % /100WBC Nucleated RBCs # K/uL Lactate (0.20-2.00) mmol/L Sodium (136-148) mmol/L Potassium (3.5-5.1) mmol/L Chloride (98-107) mmol/L Carbon Dioxide (21.0-32.0) mmol/L BUN (7.0-18.0) mg/dL Creatinine (0.8-1.3) mg/dL Est Cr Clr Drug Dosing mL/min Estimated GFR (MDRD) ml/min Glucose (74-106) mg/dL Calcium (8.5-10.1) mg/dL Magnesium (1.8-2.4) mg/dL Total Bilirubin (0.2-1.0) mg/dL AST (15-37) IU/L ALT (14-63) IU/L Alkaline Phosphatase (46-116) U/L Troponin I (0.000-0.056) ng/mL B-Natriuretic Peptide 21 (<100) PG/ML Total Protein (6.4-8.2) g/dL Albumin (3.4-5.0) g/dL Globulin (2.6-4.0) g/dL Albumin/Globulin Ratio (0.9-1.6) Urine Color YELLOW Urine Appearance CLEAR Urine pH 7.5 (5.0-8.0) Ur Specific [place] 1.020 (1.001-1.035) Urine Protein NEGATIVE (NEGATIVE) mg/dL Urine Glucose (UA) NEGATIVE (NEGATIVE) mg/dL Urine Ketones NEGATIVE (NEGATIVE) mg/dL Urine Occult Blood NEGATIVE (NEGATIVE) Urine Nitrite NEGATIVE (NEGATIVE) Urine Bilirubin NEGATIVE (NEGATIVE) Urine Urobilinogen 0.2 (<2.0) EU/dL Ur Leukocyte Esterase SMALL H (NEGATIVE) Urine RBC NONE SEEN (0-2/HPF) Urine WBC 3-5 (0-5/HPF) Ur Epithelial Cells RARE (NONE-FEW) Urine Bacteria 1+ H (NEGATIVE) Urine Mucus LIGHT (NONE-MOD) Result Diagrams: 10/23/19 05:58 10/23/19 05:58 Sepsis Event Note - Evaluation Sepsis Screening Result: No Definite Risk - Focused Exam Vital Signs: Vital Signs Temp Pulse Resp BP Pulse Ox 10/22/19 22:00 36.7 C 67 22 H 140/69 92 L 10/22/19 21:05 68 20 124/64 92 L 10/22/19 20:19 37.1 C 67 20 100/60 92 L 10/22/19 18:06 37.0 C 78 21 H 138/82 92 L Date Exam was Performed: 10/24/19 Time Exam was Performed: 19:11 Problem List Initiated/Reviewed/Updated: Yes Orders Last 24hrs: Active Orders 24 hr Category Date Time Status Patient Status [ADT] Stat ADT 10/22/19 20:33 Active EKG 12 Lead [EKG Documentation Completion] [RC] STAT Care 10/22/19 18:44 Active Up ad Wanda [RC] ASDIRECTED Care 10/22/19 22:55 Ordered VTE/DVT Education [RC] PER UNIT ROUTINE Care 10/22/19 22:55 Ordered Vital Signs [RC] Q4H Care 10/22/19 22:55 Ordered Regular Diet [DIET] Diet 10/22/19 Breakfast Ordered BASIC METABOLIC PANEL,BMP [CHEM] AM Lab 10/23/19 05:11 Ordered CBC WITH AUTO DIFF [HEME] AM Lab 10/23/19 05:11 Ordered CULTURE BLOOD [BC] Stat Lab 10/22/19 19:08 Received CULTURE BLOOD [BC] Stat Lab 10/22/19 19:21 Received CULTURE URINE [RM] Stat Lab 10/22/19 21:00 Received Albuterol [Proventil HFA] Med 10/22/19 22:53 Ordered 2.5 ml INH QID PRN Albuterol/Ipratropium [DuoNeb 3.0-0.5 MG/3 ML] Med 10/23/19 00:00 Ordered 3 ml NEB QID Aspirin Med 10/23/19 09:00 Ordered 81 mg PO DAILY Calcium Carbonate Med 10/23/19 09:00 Ordered 500 mg PO DAILY Furosemide [Lasix] Med 10/22/19 22:53 Ordered 60 mg PO DAILY PRN Heparin Sodium Med 10/23/19 09:00 Ordered 5,000 units SUBCUT Q12HR Omeprazole Med 10/23/19 07:30 Ordered 40 mg PO ACBREAKFAST Potassium Chloride [Potassium Chloride] Med 10/23/19 09:00 Ordered 20 meq PO DAILY Pramipexole Med 10/23/19 21:00 Ordered 1 mg PO BEDTIME Blood Culture x2 Reflex Set [OM.PC] Stat Oth 10/22/19 18:45 Ordered Resuscitation Status Routine Resus Stat 10/22/19 22:55 Ordered Medication Orders Albuterol (Proventil Hfa) gm INH QID PRN PRN Reason: Shortness of Breath Albuterol/Ipratropium (Duoneb 3.0-0.5 Mg/3 Ml) 3 ml NEB QID KIRAN Aspirin (Aspirin) 81 mg PO DAILY KIRAN Furosemide (Lasix) 60 mg PO DAILY PRN PRN Reason: Edema Non-Formulary Medication (Calcium Carbonate) 500 mg PO DAILY KIRAN Non-Formulary Medication (Potassium Chloride [Potassium Chloride]) 20 meq PO DAILY KIRAN Non-Formulary Medication (Pramipexole) 1 mg PO BEDTIME KIRAN Omeprazole (Omeprazole) 40 mg PO ACBREAKFAST KIRAN Assessment/Plan Comment:: 83 yo male admitted for possible early cellulitis vs chronic venous stasus changes. Patient has received Rocephin. We will monitor overnight. - Mortality Measure Prognosis:: Good
[2019-10-23] MEDS: Albuterol/Ipratropium 3.0-0.5 MG/3 ML Neb Soln NEB SCH ×3 (00:26→11:03)
[2019-10-23 06:35] LABS: BLOOD UREA NITROGEN,BUN 15 mg/dL (7.0-18.0); CARBON DIOXIDE,CO2 31.2 mmol/L (21.0-32.0); CHLORIDE,CL 101 mmol/L (98-107); GLUCOSE RANDOM 138 mg/dL (74-106); POTASSIUM,K 3.3 mmol/L (3.5-5.1); SODIUM,NA 138 mmol/L (136-148)
[2019-10-23] MEDS ORDERED: Omeprazole 20 MG Cap.CR PO SCH (07:30)
[2019-10-23] MEDS ORDERED: Furosemide 80 MG Tab PO SCH (09:00)
[2019-10-23] MEDS ORDERED: Calcium Carbonate 500 MG Tab.Chew PO SCH (09:00)
[2019-10-23] MEDS ORDERED: Potassium Chloride 20 MEQ Tab.ER PO SCH ×3 (09:00→09:45)
[2019-10-23] MEDS ORDERED: Heparin Sodium 5,000 Units/ML Vial SUBCUT SCH (09:00)
[2019-10-23] MEDS ORDERED: Aspirin 81 MG Tab.Chew PO SCH (09:00)
--- NOTE | 2019-10-23 11:04 | PCM.DCSUM1 ---
Discharge Summary - Hospital Course Brief History: 83 yo male with pmh chronic venous stasis to lower legs, COPD, obesity, restless leg syndrome, AMRITA and lymphedema presented who was hospitalized in [place] ten days ago for left leg cellulitis. Yesterday he completed a ten day course of cefdinir. Today he reports pain in his left leg with increased swelling and erythema. He denies any fevers. He was seen in the ED and had a Doppler of the left leg which was negative for DVT. He was given Rocephin for possible cellulitis. He reports that his erythema and edema have returned to normal and the pain has resolved. - Discharge Data Discharge Date: 10/23/19 Discharge Disposition: Home, W Home Health Agency 06 Condition: Good - Referral to Home Health Date of Face to Face Encounter: 10/23/19 Reason for Homebound Status: Marlo is homebound needing his to transport him to appointments due to comorbidities and [place]. He is in need of help to assist with intermittent home oxygen Primary Care Physician: Robert Keys MD Skilled Need: Marlo is in need of longterm care to monitor vital signs along with weight and leg edema. - Patient Summary/Data Hospital Course: Admitting Diagnoses: Leg pain/knee pain Suspected cellulitis Discharge Diagnoses: Leg pain Venous insufficiency Osteoarthritis to L knee Other pmh: AMRITA COPD Intermittent home O2 Lymphedema Marlo was admitted secondary to leg pain that started suddenly yesterday evening. He reports he had just finished Cefdinir course for cellulitis. He reports the pain was located to L groin and cramping in nature. He reports this starts intermittently and is sharp and very painful. He also is having L knee pain which is at baseline due to osteoarthritis. Labwork remains normal. Skin to bilateral legs is maria g in appearance and cool to touch. Pulses present. Does not appear cellulitis. Some dry flaking skin noted to distals anterior and medial lower leg. DVT ruled out. Today he is feeling better and is asking to go home. No antibiotics will be continued as cellulitis is less likely. More concern for intermittent claudication or venous insufficiency. Electrolytes WNL. I mentioned he should be evaluated by [facility] and consider arterial testing as outpatient. He would like to speak with Dr Keys first about this. I spoke to Kaity about this and she agrees, Marlo was referred to [facility] by providers in [place] but Marlo felt he didn't need it. She is hoping he would trust Dr Keys if he told him to go to one. He will be discharged home today with [place] 5/325 mg for knee pain, [address] Keys as outpatient for pain management plan as well as CORAZON testing. He is to continue low salt diet and elevation of leg to diminish edema. He is to return to ED or clinic if concerns should arise. - Patient Instructions Diet: Heart Healthy Diet, Low Sodium Activity: Elevate Extremity, No Strenuous Activities Driving: Do Not Drive Showering/Bathing: May Shower Notify Provider of: Fever, Increased Pain, Swelling and Redness, Drainage, Nausea and/or Vomiting - Discharge Plan *PRESCRIPTION DRUG MONITORING PROGRAM REVIEWED*: Not Applicable *COPY OF PRESCRIPTION DRUG MONITORING REPORT IN PATIENT MICHELLE: Not Applicable Prescriptions/Med Rec: Acetaminophen/HYDROcodone [[place] 325-5 MG] 1 tab PO Q6H PRN #5 tablet PRN Reason: Pain Home Medications: Home Meds Albuterol Sulfate [Albuterol Sulfate HFA] 2.5 ml INH QID PRN 11/12/14 [History] Calcium Carbonate [Calcium] 500 mg PO DAILY 01/11/16 [History] Furosemide 80 mg PO DAILY 01/11/16 [History] Omeprazole 40 mg PO ACBREAKFAST 01/11/16 [History] Potassium Chloride 20 meq PO BID 01/11/16 [History] Pramipexole Di-HCl [Pramipexole Dihydrochloride] 1 - 2 mg PO BEDTIME 03/13/18 [ History] Aspirin 81 mg PO DAILY 10/22/19 [History] Fish Oil/[place]-3 Fatty Acids [Fish Oil 1,000 MG] 1 each PO DAILY 10/22/19 [ History] Fluticasone/Umeclidin/Vilanter [Trelegy Ellipta 100-62.5-25 MCG] 1 puff INH DAILY 10/22/19 [History] Magnesium 400 mg PO DAILY 10/22/19 [History] Acetaminophen/HYDROcodone [[place] 325-5 MG] 1 tab PO Q6H PRN #5 tablet 10/23/19 [ Rx] Ipratropium [Atrovent] 0.5 mg NEB QID 10/23/19 [History] Multivitamin 1 tab PO DAILY 10/23/19 [History] metOLazone [Metolazone] 2.5 mg PO MOWEFR 10/23/19 [History] Oxygen Therapy Mode: Room Air Patient Handouts: Acetaminophen; Hydrocodone tablets or capsules, Cellulitis, Adult, [id number], Chronic Venous Insufficiency Referrals: Robert Keys MD [Primary Care Provider] - 10/29/19 4:00 pm - Discharge Summary/Plan Comment DC Time >30 min.: No - Patient Data Vitals - Most Recent: Last Vital Signs Temp 99.0 F 10/23/19 08:00 Pulse 81 10/23/19 08:00 Resp 19 10/23/19 08:00 BP 132/63 10/23/19 08:00 Pulse Ox 92 L 10/23/19 08:00 Weight - Most Recent: 145.059 kg I&O - Last 24 hours: Intake & Output 10/22/19 10/23/19 10/23/19 22:59 06:59 14:59 Intake Total 200 Output Total 400 Balance -200 Lab Results - Last 24 hrs: Laboratory Results - last 24 hr 10/22/19 10/22/19 10/22/19 Range/Units 19:08 19:08 19:08 WBC 7.06 (4.0-11.0) K/uL RBC 3.89 L (4.50-5.90) M/uL Hgb 13.4 (13.0-17.0) g/dL Hct 40.4 (38.0-50.0) % MCV 103.9 H (80.0-98.0) fL MCH 34.4 H (27.0-32.0) pg MCHC 33.2 (31.0-37.0) g/dL RDW Std Deviation 58.1 (28.0-62.0) fl RDW Coeff of Yared 15 (11.0-15.0) % Plt Count 181 (150-400) K/uL MPV 10.00 (7.40-12.00) fL Neut % (Auto) 61.6 (48.0-80.0) % Lymph % (Auto) 23.7 (16.0-40.0) % [place] % (Auto) 12.3 (0.0-15.0) % Eos % (Auto) 1.8 (0.0-7.0) % Baso % (Auto) 0.6 (0.0-1.5) % Neut # (Auto) 4.4 (1.4-5.7) K/uL Lymph # (Auto) 1.7 (0.6-2.4) K/uL [place] # (Auto) 0.9 H (0.0-0.8) K/uL Eos # (Auto) 0.1 (0.0-0.7) K/uL Baso # (Auto) 0.0 (0.0-0.1) K/uL Nucleated RBC % 0.0 /100WBC Nucleated RBCs # 0 K/uL Lactate 0.9 (0.20-2.00) mmol/L Sodium 140 (136-148) mmol/L Potassium 3.5 (3.5-5.1) mmol/L Chloride 101 (98-107) mmol/L Carbon Dioxide 32.8 H (21.0-32.0) mmol/L BUN 17 (7.0-18.0) mg/dL Creatinine 1.1 (0.8-1.3) mg/dL Est Cr Clr Drug Dosing 51.62 mL/min Estimated GFR (MDRD) > 60.0 ml/min Glucose 163 H (74-106) mg/dL Calcium 9.5 (8.5-10.1) mg/dL Magnesium 2.1 (1.8-2.4) mg/dL Total Bilirubin 1.1 H (0.2-1.0) mg/dL AST 31 (15-37) IU/L ALT 30 (14-63) IU/L Alkaline Phosphatase 65 (46-116) U/L Troponin I < 0.050 (0.000-0.056) ng/mL B-Natriuretic Peptide (<100) PG/ML Total Protein 6.5 (6.4-8.2) g/dL Albumin 3.4 (3.4-5.0) g/dL Globulin 3.1 (2.6-4.0) g/dL Albumin/Globulin Ratio 1.1 (0.9-1.6) Urine Color Urine Appearance Urine pH (5.0-8.0) Ur Specific [place] (1.001-1.035) Urine Protein (NEGATIVE) mg/dL Urine Glucose (UA) (NEGATIVE) mg/dL Urine Ketones (NEGATIVE) mg/dL Urine Occult Blood (NEGATIVE) Urine Nitrite (NEGATIVE) Urine Bilirubin (NEGATIVE) Urine Urobilinogen (<2.0) EU/dL Ur Leukocyte Esterase (NEGATIVE) Urine RBC (0-2/HPF) Urine WBC (0-5/HPF) Ur Epithelial Cells (NONE-FEW) Urine Bacteria (NEGATIVE) Urine Mucus (NONE-MOD) 10/22/19 10/22/19 10/23/19 Range/Units 19:08 21:00 05:58 WBC 6.16 (4.0-11.0) K/uL RBC 3.77 L (4.50-5.90) M/uL Hgb 12.6 L (13.0-17.0) g/dL Hct 39.0 (38.0-50.0) % MCV 103.4 H (80.0-98.0) fL MCH 33.4 H (27.0-32.0) pg MCHC 32.3 (31.0-37.0) g/dL RDW Std Deviation 58.0 (28.0-62.0) fl RDW Coeff of [place]ared 15 (11.0-15.0) % Plt Count 166 (150-400) K/uL MPV 9.90 (7.40-12.00) fL Neut % (Auto) 54.4 (48.0-80.0) % Lymph % (Auto) 30.7 (16.0-40.0) % [place] % (Auto) 12.0 (0.0-15.0) % Eos % (Auto) 2.6 (0.0-7.0) % Baso % (Auto) 0.3 (0.0-1.5) % Neut # (Auto) 3.4 (1.4-5.7) K/uL Lymph # (Auto) 1.9 (0.6-2.4) K/uL [place] # (Auto) 0.7 (0.0-0.8) K/uL Eos # (Auto) 0.2 (0.0-0.7) K/uL Baso # (Auto) 0.0 (0.0-0.1) K/uL Nucleated RBC % 0.0 /100WBC Nucleated RBCs # 0 K/uL Lactate (0.20-2.00) mmol/L Sodium (136-148) mmol/L Potassium (3.5-5.1) mmol/L Chloride (98-107) mmol/L Carbon Dioxide (21.0-32.0) mmol/L BUN (7.0-18.0) mg/dL Creatinine (0.8-1.3) mg/dL Est Cr Clr Drug Dosing mL/min Estimated GFR (MDRD) ml/min Glucose (74-106) mg/dL Calcium (8.5-10.1) mg/dL Magnesium (1.8-2.4) mg/dL Total Bilirubin (0.2-1.0) mg/dL AST (15-37) IU/L ALT (14-63) IU/L Alkaline Phosphatase (46-116) U/L Troponin I (0.000-0.056) ng/mL B-Natriuretic Peptide 21 (<100) PG/ML Total Protein (6.4-8.2) g/dL Albumin (3.4-5.0) g/dL Globulin (2.6-4.0) g/dL Albumin/Globulin Ratio (0.9-1.6) Urine Color YELLOW Urine Appearance CLEAR Urine pH 7.5 (5.0-8.0) Ur Specific [place] 1.020 (1.001-1.035) Urine Protein NEGATIVE (NEGATIVE) mg/dL Urine Glucose (UA) NEGATIVE (NEGATIVE) mg/dL Urine Ketones NEGATIVE (NEGATIVE) mg/dL Urine Occult Blood NEGATIVE (NEGATIVE) Urine Nitrite NEGATIVE (NEGATIVE) Urine Bilirubin NEGATIVE (NEGATIVE) Urine Urobilinogen 0.2 (<2.0) EU/dL Ur Leukocyte Esterase SMALL H (NEGATIVE) Urine RBC NONE SEEN (0-2/HPF) Urine WBC 3-5 (0-5/HPF) Ur Epithelial Cells RARE (NONE-FEW) Urine Bacteria 1+ H (NEGATIVE) Urine Mucus LIGHT (NONE-MOD) 10/23/19 Range/Units 05:58 WBC (4.0-11.0) K/uL RBC (4.50-5.90) M/uL Hgb (13.0-17.0) g/dL Hct (38.0-50.0) % MCV (80.0-98.0) fL MCH (27.0-32.0) pg MCHC (31.0-37.0) g/dL RDW Std Deviation (28.0-62.0) fl RDW Coeff of Yared (11.0-15.0) % Plt Count (150-400) K/uL MPV (7.40-12.00) fL Neut % (Auto) (48.0-80.0) % Lymph % (Auto) (16.0-40.0) % [place] % (Auto) (0.0-15.0) % Eos % (Auto) (0.0-7.0) % Baso % (Auto) (0.0-1.5) % Neut # (Auto) (1.4-5.7) K/uL Lymph # (Auto) (0.6-2.4) K/uL [place] # (Auto) (0.0-0.8) K/uL Eos # (Auto) (0.0-0.7) K/uL Baso # (Auto) (0.0-0.1) K/uL Nucleated RBC % /100WBC Nucleated RBCs # K/uL Lactate (0.20-2.00) mmol/L Sodium 138 (136-148) mmol/L Potassium 3.3 L (3.5-5.1) mmol/L Chloride 101 (98-107) mmol/L Carbon Dioxide 31.2 (21.0-32.0) mmol/L BUN 15 (7.0-18.0) mg/dL Creatinine 1.0 (0.8-1.3) mg/dL Est Cr Clr Drug Dosing 56.78 mL/min Estimated GFR (MDRD) > 60.0 ml/min Glucose 138 H (74-106) mg/dL Calcium 8.8 (8.5-10.1) mg/dL Magnesium (1.8-2.4) mg/dL Total Bilirubin (0.2-1.0) mg/dL AST (15-37) IU/L ALT (14-63) IU/L Alkaline Phosphatase (46-116) U/L Troponin I (0.000-0.056) ng/mL B-Natriuretic Peptide (<100) PG/ML Total Protein (6.4-8.2) g/dL Albumin (3.4-5.0) g/dL Globulin (2.6-4.0) g/dL Albumin/Globulin Ratio (0.9-1.6) Urine Color Urine Appearance Urine pH (5.0-8.0) Ur Specific [place] (1.001-1.035) Urine Protein (NEGATIVE) mg/dL Urine Glucose (UA) (NEGATIVE) mg/dL Urine Ketones (NEGATIVE) mg/dL Urine Occult Blood (NEGATIVE) Urine Nitrite (NEGATIVE) Urine Bilirubin (NEGATIVE) Urine Urobilinogen (<2.0) EU/dL Ur Leukocyte Esterase (NEGATIVE) Urine RBC (0-2/HPF) Urine WBC (0-5/HPF) Ur Epithelial Cells (NONE-FEW) Urine Bacteria (NEGATIVE) Urine Mucus (NONE-MOD) Med Orders - Current: Current Medications Albuterol (Ventolin Hfa) 0 gm INH QID PRN PRN Reason: Shortness of Breath Albuterol/Ipratropium (Duoneb 3.0-0.5 Mg/3 Ml) 3 ml NEB QID [facility] Last Admin: 10/23/19 11:03 Dose: 3 ml Aspirin (Aspirin) 81 mg PO DAILY [facility] Last Admin: 10/23/19 09:33 Dose: 81 mg Calcium Carbonate/Glycine (Tums) 500 mg PO DAILY [facility] Last Admin: 10/23/19 09:34 Dose: 500 mg Furosemide (Lasix) 80 mg PO DAILY [facility] Last Admin: 10/23/19 09:33 Dose: 80 mg Heparin Sodium (Porcine) (Heparin Sodium) 5,000 units SUBCUT Q12HR [facility] Last Admin: 10/23/19 09:31 Dose: 5,000 units Omeprazole (Omeprazole) 40 mg PO ACBREAKFAST [facility] Last Admin: 10/23/19 07:01 Dose: 40 mg Potassium Chloride (Klor-Con M20) 20 meq PO BID [facility] Last Admin: 10/23/19 09:39 Dose: 20 meq Pramipexole Dihydrochloride (Mirapex) 1 mg PO BEDTIME [facility] Discontinued Medications Furosemide (Lasix) 60 mg PO DAILY PRN PRN Reason: Edema Ceftriaxone Sodium/Dextrose 2 (gm/ Premix) 50 mls @ 100 mls/hr IV ONETIME ONE Stop: 10/22/19 19:14 Last Admin: 10/22/19 19:39 Dose: 100 mls/hr Oxycodone/Acetaminophen (Percocet 325-5 Mg) 2 tab PO ONETIME ONE Stop: 10/22/19 19:52 Last Admin: 10/22/19 19:59 Dose: 2 tab Potassium Chloride (Klor-Con M20) 20 meq PO DAILY [facility] Last Admin: 10/23/19 09:40 Dose: Not Given Potassium Chloride (Klor-Con M20) 20 meq PO BID [facility] - Exam General: Reports: Alert, Oriented, Cooperative HEENT: Reports: Other (sue [place]) Lungs: Reports: Clear to Auscultation, Normal Respiratory Effort Cardiovascular: Reports: Regular Rate, Regular Rhythm GI/Abdominal Exam: Normal Bowel Sounds, Soft, Non-Tender, Other (obese abdomen) Extremities: Normal Inspection, Normal Range of Motion, Non-Tender Skin: Reports: Dry, Other (flaking kskin noted to distal anterior/medial left lower extremity. No warm, pain or erythema) Wound/Incisions: Reports: No Drainage. Denies: Erythema Psy/Mental Status: Reports: Alert, Normal Affect, Normal Mood
[2019-10-23 12:30] VITALS: BP 120/61; PULSE 75
[2019-10-23] MEDS ORDERED: Pramipexole 0.25 MG Tab PO SCH (21:00)
== END 2019-10-23 12:15 | disposition home health service (06) ==
LOC: MW.ED 17:33 → MW.MS 20:33
PROVIDERS: ADMIT Internal Medicine; ATTEND Internal Medicine
DX: M79.605 Pain in left leg (principal); M17.12 Unilateral primary osteoarthritis, left knee; I87.2 Venous insufficiency (chronic) (peripheral); J44.9 Chronic obstructive pulmonary disease, unspecified; K21.9 Gastro-esophageal reflux disease without esophagitis; G47.33 Obstructive sleep apnea (adult) (pediatric); I89.0 Lymphedema, not elsewhere classified; E66.9 Obesity, unspecified; Z99.81 Dependence on supplemental oxygen; Z87.891 Personal history of nicotine dependence; Z91.013 Allergy to seafood; Z79.82 Long term (current) use of aspirin; Z79.51 Long term (current) use of inhaled steroids; Z68.42 Body mass index [BMI] 45.0-49.9, adult
CPT/HCPCS: 36415; 71045; 80048; 80053; 81001; 83605; 83735; 83880; 84484; 85025; 87040; 87086; 93005; 93970; 94640; 96365; 96372; 99285; A9270; G0378; J0696; J1644; 99284; J7620-GY

== ENCOUNTER 2020-01-05 10:04 | Inpatient (IN) | payer MEDICARE, BC, OTHER ==
--- NOTE | 2020-01-05 10:15 | EDM.PDOC ---
ED HPI GENERAL MEDICAL PROBLEM - General Chief Complaint: Respiratory Problem Stated Complaint: SHORTNES OF BREATH Time Seen by Provider: 01/05/20 10:11 Source of Information: Reports: Patient History Limitations: Reports: No Limitations - History of Present Illness INITIAL COMMENTS - FREE TEXT/NARRATIVE: HISTORY AND PHYSICAL: History of present illness: Patient is an 84-year-old male who presents to the emergency room with complaints of shortness of breath, cough, sore throat, nausea and generally feeling unwell. He was seen in the emergency room a few weeks ago and was given a prescription for Medrol Dosepak. He states he recently completed this although does not feel any improvement. He has had subjective fever and chills. States he was screened for COVID-[address]-through at the high school a few weeks ago, tested negative, although he was asymptomatic at that time. Patient denies any headache, change in vision, syncope or near syncope. Denies any chest pain, back pain, abdominal pain, vomiting, diarrhea, constipation or dysuria. Has not noted any blood in urine or stool. Patient has been eating and drinking appropriately. Review of systems: As per history of present illness and below otherwise all systems reviewed and negative. Past medical history: As per history of present illness and as reviewed below otherwise noncontributory. Surgical history: As per history of present illness and as reviewed below otherwise noncontributory. Social history: See social history for further information Family history: As per history of present illness and as reviewed below otherwise noncontributory. Physical exam: General: Well-developed and well-nourished 84-year-old male. Alert and oriented. Nontoxic-appearing and in no acute distress. HEENT: Atraumatic, normocephalic, pupils equal and reactive bilaterally, negative for conjunctival pallor or scleral icterus, mucous membranes moist, TMs normal bilaterally, and is very hard of hearing bilaterally, wears hearing aids. Throat clear, neck supple, nontender, trachea midline. No drooling or trismus noted. No meningeal signs. No hot potato voice noted. Lungs: Fine expiratory wheezing noted bilateral lower bases to auscultation, diminished with poor air exchange, breath sounds equal bilaterally, chest nontender. Heart: S1S2, regular rate and rhythm without overt murmur Abdomen: Soft, nondistended, nontender. Negative for masses or hepatosplenomegaly. Negative for costovertebral tenderness. Skin: Intact, warm, dry. No lesions or rashes noted. Hematologic: No petechiae or purpra. Mucosa appropriate color and normal nail bed color and refill. Extremities: Atraumatic, moves all extremities per self without difficulty or deficits, negative for cords or calf pain. Neurovascular unremarkable. Neuro: Awake, alert, oriented. Cranial nerves II through XII unremarkable. Cerebellum unremarkable. Motor and sensory unremarkable throughout. Exam nonfocal. Notes: Upon arrival the patient's oxygen saturation is 86% on room air. The patient is very hard of hearing and unsure of what he is understanding with the questions that are being asked. He states he has oxygen at home although is unsure of when he uses it our how much oxygen he uses. Unsure of the last time he used his home O2. X-ray shows emphysematous changes. Tortuous or aneurysmal thoracic aorta noted. No evidence of pneumonia. Patient is COVID-19 positive. Due to patient's vital signs and hypoxia will admit for inpatient admission on telemetry. I did talk with the hospitalist and Dr. Tejeda who is agreeable to admitting this patient for further care and management. Diagnostics: CBC, CMP, troponin, EKG, ABG, chest x-ray, COVID Therapeutics: Solu-medrol Impression: COVID -19 Plan: Inpatient admission to Med/Surg with telemetry Definitive disposition and diagnosis as appropriate pending reevaluation and review of above. - Related Data Allergies Allergy/AdvReac Type Severity Reaction Status Date / Time No Known Allergies Allergy Verified 01/05/20 10:20 Home Meds: Home Meds Albuterol Sulfate [Albuterol Sulfate HFA] 2.5 ml INH QID PRN 11/12/14 [History] Calcium Carbonate [Calcium] 500 mg PO DAILY 01/11/16 [History] Furosemide 80 mg PO DAILY 01/11/16 [History] Omeprazole 40 mg PO ACBREAKFAST 01/11/16 [History] Potassium Chloride 20 meq PO BID 01/11/16 [History] Pramipexole Di-HCl [Pramipexole Dihydrochloride] 1 - 2 mg PO BEDTIME 03/13/18 [History] Aspirin 81 mg PO DAILY 10/22/19 [History] Fish Oil/[place]-3 Fatty Acids [Fish Oil 1,000 MG] 1 each PO DAILY 10/22/19 [History] Fluticasone/Umeclidin/Vilanter [Trelegy Ellipta 100-62.5-25 MCG] 1 puff INH DAILY 10/22/19 [History] Magnesium 400 mg PO DAILY 10/22/19 [History] Acetaminophen/HYDROcodone [[place] 325-5 MG] 1 tab PO Q6H PRN #5 tablet 10/23/19 [Rx] Ipratropium [Atrovent] 0.5 mg NEB QID 10/23/19 [History] Multivitamin 1 tab PO DAILY 10/23/19 [History] metOLazone [Metolazone] 2.5 mg PO MOWEFR 10/23/19 [History] methylPREDNISolone [Methylprednisolone] 4 mg PO ASDIRECTED 01/05/20 [History] Past Medical History - Past Health History Medical/Surgical History: Denies Medical/Surgical History HEENT History: Reports: Hard of Hearing Other HEENT 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, 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 Cardiovascular History: Reports: None, SOB on Exertion Respiratory History: Reports: COPD, Sleep Apnea, SOB Other Respiratory History: Sleep apnea with CPAP Gastrointestinal History: Reports: GERD Other Genitourinary History: hx: Balanitis, nocturia Musculoskeletal History: Reports: Arthritis, Osteoarthritis Other Musculoskeletal History: hx: Concussion and they had to drill holes in head to relieve pressure (Many yrs ago), Low back pain, limited walking (has not been able to Golf), Arthritits to LEFT Knee Neurological History: Reports: Other (See Below) Other Neuro History: Restless Legs Psychiatric History: Reports: None Endocrine/Metabolic History: Reports: Obesity/BMI 30+ Hematologic History: Reports: None Immunologic History: Reports: None Oncologic (Cancer) History: Reports: None Other Oncologic History: Several areas froze off his face Dermatologic History: Reports: Venous Stasis Dermatitis Other Dermatologic History: Thin delicate skin - Infectious Disease History Infectious Disease History: Reports: Chicken Pox, Influenza, Measles, Mumps - Past Surgical History HEENT Surgical History: Reports: Oral Surgery Cardiovascular Surgical History: Reports: None Respiratory Surgical History: Reports: None GI Surgical History: Reports: Colonoscopy Endocrine Surgical History: Reports: None Other Neurological Surgeries/Procedures: brain surgery Musculoskeletal Surgical History: Reports: Knee Replacement Other Musculoskeletal Surgeries/Procedures:: Right Total Knee Replacement - History Comment History Comment: ETOH UNKNOWN Social & Family History - Family History Family Medical History: Noncontributory Dermatologic: Reports: Other (See Below) Other Dermatologic Family History: Client stated, "I don't remember what my family from." - Caffeine Use Caffeine Use: Reports: Coffee - Living Situation & Occupation Living situation: Reports: , with Spouse ED ROS GENERAL - Review of Systems Review Of Systems: Comprehensive ROS is negative, except as noted in HPI. ED EXAM, GENERAL - Physical Exam Exam: See Below (See dictation) Course - Vital Signs Last Recorded V/S: Last Vital Signs Temp 98.1 F 01/05/20 10:21 Pulse 84 01/05/20 10:21 Resp 26 H 01/05/20 10:21 BP 134/86 01/05/20 10:21 Pulse Ox 92 L 01/05/20 10:21 - Orders/Labs/Meds Orders: Active Orders 24 hr Category Date Time Status Admission Status [Patient Status] [ADT] Stat ADT 01/05/20 12:12 Active EKG Documentation Completion [RC] STAT Care 01/05/20 10:28 Active Sodium Chloride 0.9% [Saline Flush] Med 01/05/20 10:28 Active 10 ml FLUSH ASDIRECTED PRN Sodium Chloride 0.9% [Saline Flush] Med 01/05/20 10:28 Active 2.5 ml FLUSH ASDIRECTED PRN Saline Lock Insert [OM.PC] Stat Oth 01/05/20 10:28 Ordered Medication Orders Sodium Chloride (Saline Flush) 10 ml FLUSH ASDIRECTED PRN PRN Reason: Keep Vein Open Sodium Chloride (Saline Flush) 2.5 ml FLUSH ASDIRECTED PRN PRN Reason: Keep Vein Open Labs: Laboratory Tests 01/05/20 01/05/20 01/05/20 Range/Units 11:15 11:15 11:15 WBC 8.72 (4.0-11.0) K/uL RBC 4.28 L (4.50-5.90) M/uL Hgb 14.7 (13.0-17.0) g/dL Hct 44.4 (38.0-50.0) % MCV 103.7 H (80.0-98.0) fL MCH 34.3 H (27.0-32.0) pg MCHC 33.1 (31.0-37.0) g/dL RDW Std Deviation 58.5 (28.0-62.0) fl RDW Coeff of Yared 15 (11.0-15.0) % Plt Count 150 (150-400) K/uL MPV 10.60 (7.40-12.00) fL Neut % (Auto) 75.4 (48.0-80.0) % Lymph % (Auto) 11.1 L (16.0-40.0) % Beckham % (Auto) 13.2 (0.0-15.0) % Eos % (Auto) 0.1 (0.0-7.0) % Baso % (Auto) 0.2 (0.0-1.5) % Neut # (Auto) 6.6 H (1.4-5.7) K/uL Lymph # (Auto) 1.0 (0.6-2.4) K/uL Beckham # (Auto) 1.2 H (0.0-0.8) K/uL Eos # (Auto) 0.0 (0.0-0.7) K/uL Baso # (Auto) 0.0 (0.0-0.1) K/uL Nucleated RBC % 0.0 /100WBC Nucleated RBCs # 0 K/uL ABG pH (7.35-7.45) ABG pCO2 (35-45) mmHG ABG pO2 (75-100) mmHG ABG HCO3 (22-26) mEq/L ABG Total CO2 ABG Base Excess (-2.0-2.0) Lactate 1.3 (0.20-2.00) mmol/L Sodium 137 (136-148) mmol/L Potassium 4.0 (3.5-5.1) mmol/L Chloride 96 L (98-107) mmol/L Carbon Dioxide 35.3 H (21.0-32.0) mmol/L BUN 26 H (7.0-18.0) mg/dL Creatinine 1.3 (0.8-1.3) mg/dL Est Cr Clr Drug Dosing 41.54 mL/min Estimated GFR (MDRD) 52.5 ml/min Glucose 118 H (74-106) mg/dL Calcium 9.0 (8.5-10.1) mg/dL Total Bilirubin 0.9 (0.2-1.0) mg/dL AST 31 (15-37) IU/L ALT 31 (14-63) IU/L Alkaline Phosphatase 75 (46-116) U/L Troponin I < 0.050 (0.000-0.056) ng/mL B-Natriuretic Peptide (<100) PG/ML Total Protein 7.3 (6.4-8.2) g/dL Albumin 3.7 (3.4-5.0) g/dL Globulin 3.6 (2.6-4.0) g/dL Albumin/Globulin Ratio 1.0 (0.9-1.6) COVID-19 (JESSE) (NEGATIVE) 01/05/20 01/05/20 01/05/20 Range/Units 11:15 11:17 11:39 WBC (4.0-11.0) K/uL RBC (4.50-5.90) M/uL Hgb (13.0-17.0) g/dL Hct (38.0-50.0) % MCV (80.0-98.0) fL MCH (27.0-32.0) pg MCHC (31.0-37.0) g/dL RDW Std Deviation (28.0-62.0) fl RDW Coeff of Yared (11.0-15.0) % Plt Count (150-400) K/uL MPV (7.40-12.00) fL Neut % (Auto) (48.0-80.0) % Lymph % (Auto) (16.0-40.0) % Beckham % (Auto) (0.0-15.0) % Eos % (Auto) (0.0-7.0) % Baso % (Auto) (0.0-1.5) % Neut # (Auto) (1.4-5.7) K/uL Lymph # (Auto) (0.6-2.4) K/uL Beckham # (Auto) (0.0-0.8) K/uL Eos # (Auto) (0.0-0.7) K/uL Baso # (Auto) (0.0-0.1) K/uL Nucleated RBC % /100WBC Nucleated RBCs # K/uL ABG pH 7.475 H (7.35-7.45) ABG pCO2 45 (35-45) mmHG ABG pO2 89 (75-100) mmHG ABG HCO3 33 H (22-26) mEq/L ABG Total CO2 29.1 ABG Base Excess 8.6 H (-2.0-2.0) Lactate (0.20-2.00) mmol/L Sodium (136-148) mmol/L Potassium (3.5-5.1) mmol/L Chloride (98-107) mmol/L Carbon Dioxide (21.0-32.0) mmol/L BUN (7.0-18.0) mg/dL Creatinine (0.8-1.3) mg/dL Est Cr Clr Drug Dosing mL/min Estimated GFR (MDRD) ml/min Glucose (74-106) mg/dL Calcium (8.5-10.1) mg/dL Total Bilirubin (0.2-1.0) mg/dL AST (15-37) IU/L ALT (14-63) IU/L Alkaline Phosphatase (46-116) U/L Troponin I (0.000-0.056) ng/mL B-Natriuretic Peptide 26 (<100) PG/ML Total Protein (6.4-8.2) g/dL Albumin (3.4-5.0) g/dL Globulin (2.6-4.0) g/dL Albumin/Globulin Ratio (0.9-1.6) COVID-19 (JESSE) POSITIVE H (NEGATIVE) Meds: Medications Generic Name Dose Route Start Last Admin Trade Name Freq PRN Reason Stop Dose Admin Sodium Chloride 10 ml 01/05/20 10:28 Saline Flush FLUSH ASDIRECTED PRN Keep Vein Open Sodium Chloride 2.5 ml 01/05/20 10:28 Saline Flush FLUSH ASDIRECTED PRN Keep Vein Open Departure - Departure Time of Disposition: 12:16 Disposition: Admitted As Inpatient 65 Clinical Impression: COVID-19, Hypoxia - Discharge Information Sepsis Event Note (ED) - Focused Exam Vital Signs: Vital Signs Temp Pulse Resp BP Pulse Ox 01/05/20 10:21 98.1 F 84 26 H 134/86 92 L - My Orders Last 24 Hours: My Active Orders 01/05/20 10:28 EKG Documentation Completion [RC] STAT Sodium Chloride 0.9% [Saline Flush] 10 ml FLUSH ASDIRECTED PRN Sodium Chloride 0.9% [Saline Flush] 2.5 ml FLUSH ASDIRECTED PRN Saline Lock Insert [OM.PC] Stat 01/05/20 12:12 Admission Status [Patient Status] [ADT] Stat - Assessment/Plan Last 24 Hours: My Active Orders 01/05/20 10:28 EKG Documentation Completion [RC] STAT Sodium Chloride 0.9% [Saline Flush] 10 ml FLUSH ASDIRECTED PRN Sodium Chloride 0.9% [Saline Flush] 2.5 ml FLUSH ASDIRECTED PRN Saline Lock Insert [OM.PC] Stat 01/05/20 12:12 Admission Status [Patient Status] [ADT] Stat
[2020-01-05] MEDS ORDERED: Sodium Chloride 0.9% 2.5 ML Syringe FLUSH PRN (10:28)
[2020-01-05] MEDS ORDERED: Sodium Chloride 0.9% 10 ML Syringe FLUSH PRN (10:28)
--- NOTE | 2020-01-05 11:26 | CR ---
Chest: 2 views of the chest were obtained. Comparison: Prior chest x-ray of 10/22/19. Tortuous or aneurysmal thoracic aorta is noted. Heart size is normal. Lungs are clear with no acute parenchymal change. Bony structures show scattered disc space narrowing and endplate spurring within the spine. Lungs are hyperinflated on the lateral view suggesting emphysematous change. Impression: 1. Emphysematous change. 2. Aneurysmal or tortuous thoracic aorta. 3. Degenerative change within the spine. Diagnostic code #3 This report was dictated in MDT
[2020-01-05 11:58] LABS: BLOOD UREA NITROGEN,BUN 26 mg/dL (7.0-18.0); CARBON DIOXIDE,CO2 35.3 mmol/L (21.0-32.0); CHLORIDE,CL 96 mmol/L (98-107); GLUCOSE RANDOM 118 mg/dL (74-106); SODIUM,NA 137 mmol/L (136-148)
--- NOTE | 2020-01-05 13:21 | PCM.HP.2 ---
<Johnson Peng - Last Filed: 01/05/20 14:53> H&P History of Present Illness - General Date of Service: 01/05/20 Admit Problem/Dx: Admission Diagnosis/Problem Admission Diagnosis/Problem Hypoxia Source of Information: Patient History Limitations: Reports: No Limitations, Other (hard of hearing) - History of Present Illness Initial Comments - Free Text/Narative: 84-year-old male presents complaining of shortness of breath for past 1 week. He has a PMH of COPD, AMRITA on CPAP, venous stasis, restless legs syndrome and osteoarthritis. Patient has also had subjective fevers, sore throat, cough, wheezing and nausea. He travelled to [place] approximately 1 month ago. He reports [facility] and was negative. He was prescribed a medrol-dose pack but reports it has not helped him feel any better. Denies any known sick contacts. He does use oxygen at home for his COPD, however, does not know how much oxygen he normally uses as he has never checked before. Denies any tobacco use, alcohol use or illicit drug use. In the ER, patient noted to have Oxygen sat of 86% on room air. CBC and CMP unremarkable. BNP normal, troponin negative, lactate normal, EKG unremarkable and COVID19 test positive. CXR showed emphysematous changes. ABG showed pH: 7.47, pCO2 45, PO2 89 and HCO3: 33. Patient admitted for further evaluation and treatment. - Related Data Allergies/Adverse Reactions: Allergies Allergy/AdvReac Type Severity Reaction Status Date / Time No Known Allergies Allergy Verified 01/05/20 15:49 Home Medications: Home Meds Calcium Carbonate [Calcium] 500 mg PO DAILY 01/11/16 [History] Furosemide 40 mg PO DAILY 01/11/16 [History] Omeprazole 40 mg PO ACBREAKFAST 01/11/16 [History] Potassium Chloride 40 meq PO BID 01/11/16 [History] Pramipexole Di-HCl [Pramipexole Dihydrochloride] 1 - 2 mg PO BEDTIME 03/13/18 [History] Aspirin 81 mg PO DAILY 10/22/19 [History] Fish Oil/[place]-3 Fatty Acids [Fish Oil 1,000 MG] 1 each PO DAILY 10/22/19 [History] Fluticasone/Umeclidin/Vilanter [Trelegy Ellipta 100-62.5-25 MCG] 1 puff INH DAILY 10/22/19 [History] Magnesium 400 mg PO DAILY 10/22/19 [History] Ipratropium [Atrovent] 0.5 mg NEB QID 10/23/19 [History] Multivitamin 1 tab PO DAILY 10/23/19 [History] metOLazone [Metolazone] 2.5 mg PO MOWEFR 10/23/19 [History] Acetaminophen/HYDROcodone [Rochert 325-5 MG] 1 tab PO BID PRN 01/05/20 [History] Spironolactone [Aldactone] 254 mg PO DAILY 01/05/20 [History] Sucralfate 1 gm PO BID PRN 01/05/20 [History] methylPREDNISolone [Methylprednisolone] 4 mg PO ASDIRECTED 01/05/20 [History] Past Medical History - Past Health History Medical/Surgical History: Denies Medical/Surgical History HEENT History: Reports: Hard of Hearing Other HEENT 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, 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 Cardiovascular History: Reports: None, SOB on Exertion Respiratory History: Reports: COPD, Sleep Apnea, SOB Other Respiratory History: Sleep apnea with CPAP Gastrointestinal History: Reports: GERD Other Genitourinary History: hx: Balanitis, nocturia Musculoskeletal History: Reports: Arthritis, Osteoarthritis Other Musculoskeletal History: hx: Concussion and they had to drill holes in head to relieve pressure (Many yrs ago), Low back pain, limited walking (has not been able to Golf), Arthritits to LEFT Knee Neurological History: Reports: Other (See Below) Other Neuro History: Restless Legs Psychiatric History: Reports: None Endocrine/Metabolic History: Reports: Obesity/BMI 30+ Hematologic History: Reports: None Immunologic History: Reports: None Oncologic (Cancer) History: Reports: None Other Oncologic History: Several areas froze off his face Dermatologic History: Reports: Venous Stasis Dermatitis Other Dermatologic History: Thin delicate skin - Infectious Disease History Infectious Disease History: Reports: Chicken Pox, Influenza, Measles, Mumps - Past Surgical History HEENT Surgical History: Reports: Oral Surgery Cardiovascular Surgical History: Reports: None Respiratory Surgical History: Reports: None GI Surgical History: Reports: Colonoscopy Endocrine Surgical History: Reports: None Other Neurological Surgeries/Procedures: brain surgery Musculoskeletal Surgical History: Reports: Knee Replacement Other Musculoskeletal Surgeries/Procedures:: Right Total Knee Replacement - History Comment History Comment: ETOH UNKNOWN Social & Family History - Family History Family Medical History: Noncontributory Dermatologic: Reports: Other (See Below) Other Dermatologic Family History: Client stated, "I don't remember what my family from." - Tobacco Use Smoking Status *Q: Former Smoker Used Tobacco, but Quit: Yes Month/Year Tobacco Last Used: 1959 - Caffeine Use Caffeine Use: Reports: Coffee - Recreational Drug Use Recreational Drug Use: No - Living Situation & Occupation Living situation: Reports: , with Spouse H&P Review of Systems - Review of Systems: Review Of Systems: Comprehensive ROS is negative, except as noted in HPI. Exam - Exam Exam: See Below - Vital Signs Vital Signs: Last Vital Signs Temp 36.7 C 01/05/20 10:21 Pulse 84 01/05/20 10:21 Resp 26 H 01/05/20 10:21 BP 134/86 01/05/20 10:21 Pulse Ox 92 L 01/05/20 10:21 Weight: 136.078 kg - Exam General: Alert, Oriented, Cooperative HEENT: Conjunctiva Clear, EOMI, Posterior Pharynx Clear, Pupils Equal, Pupils Reactive, Other (hard of hearing) Neck: Supple, Trachea Midline Lungs: Other (shallow breaths, wheezes in b/l lung bases) Cardiovascular: Regular Rate, Regular Rhythm GI/Abdominal Exam: Normal Bowel Sounds, Soft, Non-Tender, No Distention, Other (Obese) Extremities: Other (2+ non-pitting edema b/l) Peripheral Pulses: 2+: Radial (L), Radial (R) Skin: Warm, Dry, Intact Neurological: Cranial Nerves Intact, Strength Equal Bilateral, Normal Speech, Normal Tone Neuro Extensive - Mental Status: Alert, Oriented x3, Normal Mood/Affect Psychiatric: Alert, Normal Affect, Normal Mood - Patient Data Lab Results Last 24 hrs: Laboratory Results - last 24 hr 01/05/20 01/05/20 01/05/20 Range/Units 11:15 11:15 11:15 WBC 8.72 (4.0-11.0) K/uL RBC 4.28 L (4.50-5.90) M/uL Hgb 14.7 (13.0-17.0) g/dL Hct 44.4 (38.0-50.0) % MCV 103.7 H (80.0-98.0) fL MCH 34.3 H (27.0-32.0) pg MCHC 33.1 (31.0-37.0) g/dL RDW Std Deviation 58.5 (28.0-62.0) fl RDW Coeff of Yared 15 (11.0-15.0) % Plt Count 150 (150-400) K/uL MPV 10.60 (7.40-12.00) fL Neut % (Auto) 75.4 (48.0-80.0) % Lymph % (Auto) 11.1 L (16.0-40.0) % Bea[place]gard % (Auto) 13.2 (0.0-15.0) % Eos % (Auto) 0.1 (0.0-7.0) % Baso % (Auto) 0.2 (0.0-1.5) % Neut # (Auto) 6.6 H (1.4-5.7) K/uL Lymph # (Auto) 1.0 (0.6-2.4) K/uL [place] # (Auto) 1.2 H (0.0-0.8) K/uL Eos # (Auto) 0.0 (0.0-0.7) K/uL Baso # (Auto) 0.0 (0.0-0.1) K/uL Nucleated RBC % 0.0 /100WBC Nucleated RBCs # 0 K/uL ABG pH (7.35-7.45) ABG pCO2 (35-45) mmHG ABG pO2 (75-100) mmHG ABG HCO3 (22-26) mEq/L ABG Total CO2 ABG Base Excess (-2.0-2.0) Lactate 1.3 (0.20-2.00) mmol/L Sodium 137 (136-148) mmol/L Potassium 4.0 (3.5-5.1) mmol/L Chloride 96 L (98-107) mmol/L Carbon Dioxide 35.3 H (21.0-32.0) mmol/L BUN 26 H (7.0-18.0) mg/dL Creatinine 1.3 (0.8-1.3) mg/dL Est Cr Clr Drug Dosing 41.54 mL/min Estimated GFR (MDRD) 52.5 ml/min Glucose 118 H (74-106) mg/dL Calcium 9.0 (8.5-10.1) mg/dL Total Bilirubin 0.9 (0.2-1.0) mg/dL AST 31 (15-37) IU/L ALT 31 (14-63) IU/L Alkaline Phosphatase 75 (46-116) U/L Troponin I < 0.050 (0.000-0.056) ng/mL B-Natriuretic Peptide (<100) PG/ML Total Protein 7.3 (6.4-8.2) g/dL Albumin 3.7 (3.4-5.0) g/dL Globulin 3.6 (2.6-4.0) g/dL Albumin/Globulin Ratio 1.0 (0.9-1.6) COVID-19 ([facility]) (NEGATIVE) 01/05/20 01/05/20 01/05/20 Range/Units 11:15 11:17 11:39 WBC (4.0-11.0) K/uL RBC (4.50-5.90) M/uL Hgb (13.0-17.0) g/dL Hct (38.0-50.0) % MCV (80.0-98.0) fL MCH (27.0-32.0) pg MCHC (31.0-37.0) g/dL RDW Std Deviation (28.0-62.0) fl RDW Coeff of Yared (11.0-15.0) % Plt Count (150-400) K/uL MPV (7.40-12.00) fL Neut % (Auto) (48.0-80.0) % Lymph % (Auto) (16.0-40.0) % Bea[place]gard % (Auto) (0.0-15.0) % Eos % (Auto) (0.0-7.0) % Baso % (Auto) (0.0-1.5) % Neut # (Auto) (1.4-5.7) K/uL Lymph # (Auto) (0.6-2.4) K/uL [place] # (Auto) (0.0-0.8) K/uL Eos # (Auto) (0.0-0.7) K/uL Baso # (Auto) (0.0-0.1) K/uL Nucleated RBC % /100WBC Nucleated RBCs # K/uL ABG pH 7.475 H (7.35-7.45) ABG pCO2 45 (35-45) mmHG ABG pO2 89 (75-100) mmHG ABG HCO3 33 H (22-26) mEq/L ABG Total CO2 29.1 ABG Base Excess 8.6 H (-2.0-2.0) Lactate (0.20-2.00) mmol/L Sodium (136-148) mmol/L Potassium (3.5-5.1) mmol/L Chloride (98-107) mmol/L Carbon Dioxide (21.0-32.0) mmol/L BUN (7.0-18.0) mg/dL Creatinine (0.8-1.3) mg/dL Est Cr Clr Drug Dosing mL/min Estimated GFR (MDRD) ml/min Glucose (74-106) mg/dL Calcium (8.5-10.1) mg/dL Total Bilirubin (0.2-1.0) mg/dL AST (15-37) IU/L ALT (14-63) IU/L Alkaline Phosphatase (46-116) U/L Troponin I (0.000-0.056) ng/mL B-Natriuretic Peptide 26 (<100) PG/ML Total Protein (6.4-8.2) g/dL Albumin (3.4-5.0) g/dL Globulin (2.6-4.0) g/dL Albumin/Globulin Ratio (0.9-1.6) COVID-19 ([facility]SE) POSITIVE H (NEGATIVE) Result Diagrams: 01/05/20 11:15 01/05/20 11:15 Sepsis Event Note - Evaluation Sepsis Screening Result: No Definite Risk - Focused Exam Vital Signs: Vital Signs Temp Pulse Resp BP Pulse Ox 01/05/20 10:21 36.7 C 84 26 H 134/86 92 L Problem List Initiated/Reviewed/Updated: Yes Orders Last 24hrs: Active Orders 24 hr Category Date Time Status Admission Status [Patient Status] [ADT] Stat ADT 01/05/20 12:12 Active EKG Documentation Completion [RC] STAT Care 01/05/20 10:28 Active Sodium Chloride 0.9% [Saline Flush] Med 01/05/20 10:28 Active 10 ml FLUSH ASDIRECTED PRN Sodium Chloride 0.9% [Saline Flush] Med 01/05/20 10:28 Active 2.5 ml FLUSH ASDIRECTED PRN Saline Lock Insert [OM.PC] Stat Oth 01/05/20 10:28 Ordered Medication Orders Sodium Chloride (Saline Flush) 10 ml FLUSH ASDIRECTED PRN PRN Reason: Keep Vein Open Sodium Chloride (Saline Flush) 2.5 ml FLUSH ASDIRECTED PRN PRN Reason: Keep Vein Open Assessment/Plan Comment:: Assessment and Plan: 1. Acute on chronic hypoxic hypercapnic respiratory failure secondary to COPD exacerbation vs acute bronchitis: - Admit to med/surg. Patient on telemetry. COVID19 test positive. Will start supplemental oxygen to maintain O2 sat >92%, Combivent INH q4 PRN, incentive spirometer, IV azithromycin and IV dexamethasone. Will order sputum culture. Will also add on-labs: d-dimer, ferritin, ESR and CRP. Will give 1 L IV LR @ 75 cc/hr. - CXR showed emphysematous changes and no areas of consolidation at this time. 2. DVT prophylaxis: Lovenox 40 mg subcut BID. 3. 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 <Ryland Neville - Last Filed: 01/05/20 22:41> H&P History of Present Illness - General Admit Problem/Dx: Admission Diagnosis/Problem Admission Diagnosis/Problem Hypoxia - History of Present Illness Initial Comments - Free Text/Narative: I performed a history and physical exam of the patient and discussed management with resident. I have reviewed the residents note and agree with documented findings and plan unless otherwise specified in my note. Exam - Vital Signs Vital Signs: Last Vital Signs Temp 37.3 C 01/05/20 19:50 Pulse 71 01/05/20 19:50 Resp 20 01/05/20 19:50 BP 123/57 L 01/05/20 19:50 Pulse Ox 95 01/05/20 19:50 - Patient Data Lab Results Last 24 hrs: Laboratory Results - last 24 hr 01/05/20 01/05/20 01/05/20 Range/Units 11:15 11:15 11:15 WBC 8.72 (4.0-11.0) K/uL RBC 4.28 L (4.50-5.90) M/uL Hgb 14.7 (13.0-17.0) g/dL Hct 44.4 (38.0-50.0) % MCV 103.7 H (80.0-98.0) fL MCH 34.3 H (27.0-32.0) pg MCHC 33.1 (31.0-37.0) g/dL RDW Std Deviation 58.5 (28.0-62.0) fl RDW Coeff of Yared 15 (11.0-15.0) % Plt Count 150 (150-400) K/uL MPV 10.60 (7.40-12.00) fL Neut % (Auto) 75.4 (48.0-80.0) % Lymph % (Auto) 11.1 L (16.0-40.0) % [place] % (Auto) 13.2 (0.0-15.0) % Eos % (Auto) 0.1 (0.0-7.0) % Baso % (Auto) 0.2 (0.0-1.5) % Neut # (Auto) 6.6 H (1.4-5.7) K/uL Lymph # (Auto) 1.0 (0.6-2.4) K/uL [place] # (Auto) 1.2 H (0.0-0.8) K/uL Eos # (Auto) 0.0 (0.0-0.7) K/uL Baso # (Auto) 0.0 (0.0-0.1) K/uL Nucleated RBC % 0.0 /100WBC Nucleated RBCs # 0 K/uL ESR (0-19) mm/hr D-Dimer, Quantitative (0.0-0.50) mg/L FEU ABG pH (7.35-7.45) ABG pCO2 (35-45) mmHG ABG pO2 (75-100) mmHG ABG HCO3 (22-26) mEq/L ABG Total CO2 ABG Base Excess (-2.0-2.0) Lactate 1.3 (0.20-2.00) mmol/L Sodium 137 (136-148) mmol/L Potassium 4.0 (3.5-5.1) mmol/L Chloride 96 L (98-107) mmol/L Carbon Dioxide 35.3 H (21.0-32.0) mmol/L BUN 26 H (7.0-18.0) mg/dL Creatinine 1.3 (0.8-1.3) mg/dL Est Cr Clr Drug Dosing 41.54 mL/min Estimated GFR (MDRD) 52.5 ml/min Glucose 118 H (74-106) mg/dL Calcium 9.0 (8.5-10.1) mg/dL Ferritin (26-388) ng/mL Total Bilirubin 0.9 (0.2-1.0) mg/dL AST 31 (15-37) IU/L ALT 31 (14-63) IU/L Alkaline Phosphatase 75 (46-116) U/L Troponin I < 0.050 (0.000-0.056) ng/mL C-Reactive Protein (0.00-0.90) mg/dL B-Natriuretic Peptide (<100) PG/ML Total Protein 7.3 (6.4-8.2) g/dL Albumin 3.7 (3.4-5.0) g/dL Globulin 3.6 (2.6-4.0) g/dL Albumin/Globulin Ratio 1.0 (0.9-1.6) COVID-19 ([facility]) (NEGATIVE) 01/05/20 01/05/20 01/05/20 Range/Units 11:15 11:15 11:15 WBC (4.0-11.0) K/uL RBC (4.50-5.90) M/uL Hgb (13.0-17.0) g/dL Hct (38.0-50.0) % MCV (80.0-98.0) fL MCH (27.0-32.0) pg MCHC (31.0-37.0) g/dL RDW Std Deviation (28.0-62.0) fl RDW Coeff of Yared (11.0-15.0) % Plt Count (150-400) K/uL MPV (7.40-12.00) fL Neut % (Auto) (48.0-80.0) % Lymph % (Auto) (16.0-40.0) % [place] % (Auto) (0.0-15.0) % Eos % (Auto) (0.0-7.0) % Baso % (Auto) (0.0-1.5) % Neut # (Auto) (1.4-5.7) K/uL Lymph # (Auto) (0.6-2.4) K/uL [place] # (Auto) (0.0-0.8) K/uL Eos # (Auto) (0.0-0.7) K/uL Baso # (Auto) (0.0-0.1) K/uL Nucleated RBC % /100WBC Nucleated RBCs # K/uL ESR (0-19) mm/hr D-Dimer, Quantitative 0.73 H (0.0-0.50) mg/L FEU ABG pH (7.35-7.45) ABG pCO2 (35-45) mmHG ABG pO2 (75-100) mmHG ABG HCO3 (22-26) mEq/L ABG Total CO2 ABG Base Excess (-2.0-2.0) Lactate (0.20-2.00) mmol/L Sodium (136-148) mmol/L Potassium (3.5-5.1) mmol/L Chloride (98-107) mmol/L Carbon Dioxide (21.0-32.0) mmol/L BUN (7.0-18.0) mg/dL Creatinine (0.8-1.3) mg/dL Est Cr Clr Drug Dosing mL/min Estimated GFR (MDRD) ml/min Glucose (74-106) mg/dL Calcium (8.5-10.1) mg/dL Ferritin 189 (26-388) ng/mL Total Bilirubin (0.2-1.0) mg/dL AST (15-37) IU/L ALT (14-63) IU/L Alkaline Phosphatase (46-116) U/L Troponin I (0.000-0.056) ng/mL C-Reactive Protein (0.00-0.90) mg/dL B-Natriuretic Peptide 26 (<100) PG/ML Total Protein (6.4-8.2) g/dL Albumin (3.4-5.0) g/dL Globulin (2.6-4.0) g/dL Albumin/Globulin Ratio (0.9-1.6) COVID-19 ([facility]) (NEGATIVE) 01/05/20 01/05/20 01/05/20 Range/Units 11:15 11:17 11:39 WBC (4.0-11.0) K/uL RBC (4.50-5.90) M/uL Hgb (13.0-17.0) g/dL Hct (38.0-50.0) % MCV (80.0-98.0) fL MCH (27.0-32.0) pg MCHC (31.0-37.0) g/dL RDW Std Deviation (28.0-62.0) fl RDW Coeff of Yared (11.0-15.0) % Plt Count (150-400) K/uL MPV (7.40-12.00) fL Neut % (Auto) (48.0-80.0) % Lymph % (Auto) (16.0-40.0) % Bea[place]gard % (Auto) (0.0-15.0) % Eos % (Auto) (0.0-7.0) % Baso % (Auto) (0.0-1.5) % Neut # (Auto) (1.4-5.7) K/uL Lymph # (Auto) (0.6-2.4) K/uL [place] # (Auto) (0.0-0.8) K/uL Eos # (Auto) (0.0-0.7) K/uL Baso # (Auto) (0.0-0.1) K/uL Nucleated RBC % /100WBC Nucleated RBCs # K/uL ESR (0-19) mm/hr D-Dimer, Quantitative (0.0-0.50) mg/L FEU ABG pH 7.475 H (7.35-7.45) ABG pCO2 45 (35-45) mmHG ABG pO2 89 (75-100) mmHG ABG HCO3 33 H (22-26) mEq/L ABG Total CO2 29.1 ABG Base Excess 8.6 H (-2.0-2.0) Lactate (0.20-2.00) mmol/L Sodium (136-148) mmol/L Potassium (3.5-5.1) mmol/L Chloride (98-107) mmol/L Carbon Dioxide (21.0-32.0) mmol/L BUN (7.0-18.0) mg/dL Creatinine (0.8-1.3) mg/dL Est Cr Clr Drug Dosing mL/min Estimated GFR (MDRD) ml/min Glucose (74-106) mg/dL Calcium (8.5-10.1) mg/dL Ferritin (26-388) ng/mL Total Bilirubin (0.2-1.0) mg/dL AST (15-37) IU/L ALT (14-63) IU/L Alkaline Phosphatase (46-116) U/L Troponin I (0.000-0.056) ng/mL C-Reactive Protein 2.20 H (0.00-0.90) mg/dL B-Natriuretic Peptide (<100) PG/ML Total Protein (6.4-8.2) g/dL Albumin (3.4-5.0) g/dL Globulin (2.6-4.0) g/dL Albumin/Globulin Ratio (0.9-1.6) COVID-19 ([facility]) POSITIVE H (NEGATIVE) 01/05/20 Range/Units 15:59 WBC (4.0-11.0) K/uL RBC (4.50-5.90) M/uL Hgb (13.0-17.0) g/dL Hct (38.0-50.0) % MCV (80.0-98.0) fL MCH (27.0-32.0) pg MCHC (31.0-37.0) g/dL RDW Std Deviation (28.0-62.0) fl RDW Coeff of Yared (11.0-15.0) % Plt Count (150-400) K/uL MPV (7.40-12.00) fL Neut % (Auto) (48.0-80.0) % Lymph % (Auto) (16.0-40.0) % Bea[place]gard % (Auto) (0.0-15.0) % Eos % (Auto) (0.0-7.0) % Baso % (Auto) (0.0-1.5) % Neut # (Auto) (1.4-5.7) K/uL Lymph # (Auto) (0.6-2.4) K/uL [place]gard # (Auto) (0.0-0.8) K/uL Eos # (Auto) (0.0-0.7) K/uL Baso # (Auto) (0.0-0.1) K/uL Nucleated RBC % /100WBC Nucleated RBCs # K/uL ESR 39 H (0-19) mm/hr D-Dimer, Quantitative (0.0-0.50) mg/L FEU ABG pH (7.35-7.45) ABG pCO2 (35-45) mmHG ABG pO2 (75-100) mmHG ABG HCO3 (22-26) mEq/L ABG Total CO2 ABG Base Excess (-2.0-2.0) Lactate (0.20-2.00) mmol/L Sodium (136-148) mmol/L Potassium (3.5-5.1) mmol/L Chloride (98-107) mmol/L Carbon Dioxide (21.0-32.0) mmol/L BUN (7.0-18.0) mg/dL Creatinine (0.8-1.3) mg/dL Est Cr Clr Drug Dosing mL/min Estimated GFR (MDRD) ml/min Glucose (74-106) mg/dL Calcium (8.5-10.1) mg/dL Ferritin (26-388) ng/mL Total Bilirubin (0.2-1.0) mg/dL AST (15-37) IU/L ALT (14-63) IU/L Alkaline Phosphatase (46-116) U/L Troponin I (0.000-0.056) ng/mL C-Reactive Protein (0.00-0.90) mg/dL B-Natriuretic Peptide (<100) PG/ML Total Protein (6.4-8.2) g/dL Albumin (3.4-5.0) g/dL Globulin (2.6-4.0) g/dL Albumin/Globulin Ratio (0.9-1.6) COVID-19 ([facility]) (NEGATIVE) Result Diagrams: 01/05/20 11:15 01/05/20 11:15 Santi Results Last 24 hrs: Microbiology 01/05/20 17:53 Gram Stain - Final Sputum - Expectorated 01/05/20 15:03 Anaerobic Blood Culture - Final Blood - Venous Sepsis Event Note - Focused Exam Vital Signs: Vital Signs Temp Pulse Resp BP Pulse Ox Pulse Ox 01/05/20 19:50 37.3 C 71 20 123/57 L 95 01/05/20 18:50 37.6 C 01/05/20 18:11 38.4 C H 85 21 H 128/64 92 L 01/05/20 14:44 94 L 01/05/20 14:38 37.3 C 82 22 H 131/88 94 L Orders Last 24hrs: Active Orders 24 hr Category Date Time Status Admission Status [Patient Status] [ADT] Stat ADT 01/05/20 12:12 Active Incentive Spirometry [RT Incentive Spirometry] [RC] Care 01/05/20 14:52 Active ASDIRECTED Oxygen Therapy [RC] PRN Care 01/05/20 14:44 Active RT Aerosol Therapy [RC] ASDIRECTED Care 01/05/20 19:07 Active RT Post Treatment Assessment [RC] Click to Edit Care 01/05/20 14:52 Active RT Pre-Treatment Assessment [RC] Click to Edit Care 01/05/20 14:52 Active Telemetry Monitoring [Cardiac Monitoring] [RC] . Care 01/05/20 14:52 Active DIRECTED Up ad Wanda [RC] ASDIRECTED Care 01/05/20 14:44 Active VTE/DVT Education [RC] PER UNIT ROUTINE Care 01/05/20 14:44 Active Vital Signs [RC] Q4H Care 01/05/20 14:44 Active Regular Diet [DIET] Diet 01/05/20 Lunch Active CBC WITH AUTO DIFF [HEME] AM Lab 01/06/20 05:11 Ordered COMPREHENSIVE METABOLIC PN,CMP [CHEM] AM Lab 01/06/20 05:11 Ordered CULTURE BLOOD [BC] Stat Lab 01/05/20 15:03 Results CULTURE BLOOD [BC] Stat Lab 01/05/20 16:43 Received CULTURE SPUTUM + SMEAR [RM] Urgent Lab 01/05/20 17:53 Results Acetaminophen [TylenoL] Med 01/05/20 14:44 Active 650 mg PO Q4H PRN Albuterol/Ipratropium [Combivent Respimat] Med 01/05/20 19:15 Active See Dose Instructions INH Q6HRRT Albuterol/Ipratropium [DuoNeb 3.0-0.5 MG/3 ML] Med 01/05/20 19:07 Active 3 ml NEB Q4HRRT PRN Aspirin Med 01/06/20 09:00 Active 81 mg PO DAILY Azithromycin [Zithromax] 500 mg Med 01/05/20 15:00 Active Sodium Chloride 0.9% [Normal Saline (AdvBag)] 250 ml IV DAILY Enoxaparin [Lovenox] Med 01/05/20 21:00 Active 40 mg SUBCUT BID Furosemide [Lasix] Med 01/06/20 09:00 Active 40 mg PO DAILY Lactated Ringers [Ringers, Lactated] 1,000 ml Med 01/05/20 15:00 Active IV ASDIRECTED Non-Formulary Medication [NF Drug] Med 01/06/20 09:00 Active 1 each INH DAILY Ondansetron [Zofran] Med 01/05/20 14:44 Active 4 mg IVPUSH Q4H PRN Pantoprazole [ProTONIX IV] 40 mg Med 01/05/20 15:00 Active Sodium Chloride 0.9% [Normal Saline] 10 ml IV DAILY Pramipexole [Mirapex] Med 01/05/20 21:00 Active 1 mg PO BEDTIME Sodium Chloride 0.9% [Saline Flush] Med 01/05/20 10:28 Active 10 ml FLUSH ASDIRECTED PRN Sodium Chloride 0.9% [Saline Flush] Med 01/05/20 10:28 Active 2.5 ml FLUSH ASDIRECTED PRN Spironolactone [Aldactone] Med 01/06/20 09:00 Active 25 mg PO DAILY metOLazone [Zaroxolyn] Med 01/05/20 17:30 Active 2.5 mg PO MOWEFR methylPREDNISolone Sod Succ [Solu-MEDROL] Med 01/05/20 23:00 Active 40 mg IVPUSH Q8H Blood Culture x2 Reflex Set [OM.PC] Stat Oth 01/05/20 14:44 Ordered Saline Lock Insert [OM.PC] Stat Oth 01/05/20 10:28 Ordered Resuscitation Status Routine Resus Stat 01/05/20 14:44 Ordered Medication Orders Acetaminophen (Tylenol) 650 mg PO Q4H PRN PRN Reason: Pain (Mild 1-3)/fever Last Admin: 01/05/20 18:11 Dose: 650 mg Documented by: KAJAL Albuterol/Ipratropium (Combivent Respimat) 0 gm INH Q6HRRT [facility] Last Admin: 01/05/20 20:03 Dose: 1 puff Documented by: JES Albuterol/Ipratropium (Duoneb 3.0-0.5 Mg/3 Ml) 3 ml NEB Q4HRRT PRN PRN Reason: Dyspnea Aspirin (Aspirin) 81 mg PO DAILY [facility] Enoxaparin Sodium (Lovenox) 40 mg SUBCUT BID [facility] Last Admin: 01/05/20 21:06 Dose: 40 mg Documented by: JES Furosemide (Lasix) 40 mg PO DAILY [facility] Pantoprazole Sodium 40 mg/ (Sodium Chloride) 10 mls @ 300 mls/hr IV DAILY [facility] Last Admin: 01/05/20 15:26 Dose: 300 mls/hr Documented by: CLYDE Azithromycin 500 mg/ Sodium (Chloride) 250 mls @ 250 mls/hr IV DAILY [facility] Last Admin: 01/05/20 15:33 Dose: 250 mls/hr Documented by: CLYDE Lactated Ringer's (Ringers, Lactated) 1,000 mls @ 75 mls/hr IV ASDIRECTED [facility] Stop: 01/06/20 04:19 Last Admin: 01/05/20 15:27 Dose: 75 mls/hr Documented by: CYLDE Methylprednisolone Sodium Succinate (Solu-Medrol) 40 mg IVPUSH Q8H [facility] Metolazone (Zaroxolyn) 2.5 mg PO MOWEFR [facility] Last Admin: 01/05/20 18:13 Dose: 5 mg Documented by: ESPESAR Fluticasone/Umeclidin/Vilanter [ Trelegy Ellipta 100- 62.5-25 Mcg] 1 each INH DAILY [facility] Ondansetron HCl (Zofran) 4 mg IVPUSH Q4H PRN PRN Reason: Nausea Pramipexole Dihydrochloride (Mirapex) 1 mg PO BEDTIME [facility] Last Admin: 01/05/20 21:07 Dose: 1 mg Documented by: JES Sodium Chloride (Saline Flush) 10 ml FLUSH ASDIRECTED PRN PRN Reason: Keep Vein Open Sodium Chloride (Saline Flush) 2.5 ml FLUSH ASDIRECTED PRN PRN Reason: Keep Vein Open Spironolactone (Aldactone) 25 mg PO DAILY [facility]
[2020-01-05] MEDS ORDERED: Ondansetron 4 MG/2 ML SDV IVPUSH PRN (14:44)
[2020-01-05] MEDS ORDERED: Albuterol/Ipratropium 4 GM Inhalation Spray INH PRN (14:52)
[2020-01-05] MEDS ORDERED: Dexamethasone 10 MG/ML SDV IVPUSH SCH (15:00)
[2020-01-05] MEDS ORDERED: Lactated Ringers 1,000 ML IV SCH (15:00)
[2020-01-05] MEDS: Pantoprazole 40 MG in Sodium Chloride 0.9% 10 ML IV SCH (15:26)
[2020-01-05] MEDS: Azithromycin 500 MG in Sodium Chloride 0.9% 250 ML IV SCH (15:33)
[2020-01-05] MEDS: Acetaminophen 325 MG Tab PO PRN (18:11)
[2020-01-05] MEDS: Metolazone 5 MG Tab PO SCH (18:13)
[2020-01-05] MEDS ORDERED: Albuterol/Ipratropium 3.0-0.5 MG/3 ML Neb Soln NEB PRN (19:07)
[2020-01-05] MEDS: Albuterol/Ipratropium 4 GM Inhalation Spray INH SCH (20:03)
[2020-01-05] MEDS: Enoxaparin 40 MG/0.4 ML Syringe SUBCUT SCH (21:06)
[2020-01-05] MEDS: Pramipexole 0.25 MG Tab PO SCH (21:07)
[2020-01-05] MEDS ORDERED: Furosemide 20 MG/2 ML VIAL IVPUSH ONE (22:57)
[2020-01-05] MEDS: methylPREDNISolone Sodium Succinate 40 MG/1 ML SDV IVPUSH SCH (23:45)
[2020-01-06] MEDS: Albuterol/Ipratropium 4 GM Inhalation Spray INH SCH ×5 (00:59→23:10)
[2020-01-06 06:23] LABS: BLOOD UREA NITROGEN,BUN 28 mg/dL (7.0-18.0); CARBON DIOXIDE,CO2 32.3 mmol/L (21.0-32.0); CHLORIDE,CL 94 mmol/L (98-107); GLUCOSE RANDOM 204 mg/dL (74-106); POTASSIUM,K 3.5 mmol/L (3.5-5.1); SODIUM,NA 133 mmol/L (136-148)
[2020-01-06] MEDS: methylPREDNISolone Sodium Succinate 40 MG/1 ML SDV IVPUSH SCH ×3 (06:28→23:10)
[2020-01-06] MEDS: Acetaminophen 325 MG Tab PO PRN ×2 (06:36→16:26)
[2020-01-06 07:59] LABS: HEMOGLOBIN A1C 7.2 % (4.5-6.2)
[2020-01-06] MEDS: Pantoprazole 40 MG in Sodium Chloride 0.9% 10 ML IV SCH (08:20)
[2020-01-06] MEDS: Aspirin 81 MG Tab.Chew PO SCH (08:21)
[2020-01-06] MEDS: Furosemide 40 MG Tab PO SCH (08:21)
[2020-01-06] MEDS: Enoxaparin 40 MG/0.4 ML Syringe SUBCUT SCH ×2 (08:21→20:37)
[2020-01-06] MEDS: Spironolactone 25 MG Tab PO SCH (08:22)
[2020-01-06] MEDS: Azithromycin 500 MG in Sodium Chloride 0.9% 250 ML IV SCH (08:28)
--- NOTE | 2020-01-06 08:48 | PCM.PN ---
<Johnson Peng - Last Filed: 01/06/20 10:02> - General Info Date of Service: 01/06/20 Subjective Update: Reports breathing better this morning and cough improved. Febrile yesterday evening. Tolerating oral diet well. - Patient Data Vitals - Most Recent: Last Vital Signs Temp 36.6 C 01/06/20 08:16 Pulse 62 01/06/20 08:16 Resp 20 01/06/20 08:16 BP 133/76 01/06/20 08:16 Pulse Ox 95 01/06/20 08:16 Weight - Most Recent: 136.078 kg I&O - Last 24 Hours: Intake & Output 01/05/20 01/06/20 01/06/20 22:59 06:59 14:59 Intake Total 0 1483 Output Total 0 1050 Balance 0 433 Lab Results Last 24 Hours: Laboratory Results - last 24 hr 01/05/20 01/05/20 01/05/20 Range/Units 11:15 11:15 11:15 WBC 8.72 (4.0-11.0) K/uL RBC 4.28 L (4.50-5.90) M/uL Hgb 14.7 (13.0-17.0) g/dL Hct 44.4 (38.0-50.0) % MCV 103.7 H (80.0-98.0) fL MCH 34.3 H (27.0-32.0) pg MCHC 33.1 (31.0-37.0) g/dL RDW Std Deviation 58.5 (28.0-62.0) fl RDW Coeff of Yared 15 (11.0-15.0) % Plt Count 150 (150-400) K/uL MPV 10.60 (7.40-12.00) fL Neut % (Auto) 75.4 (48.0-80.0) % Lymph % (Auto) 11.1 L (16.0-40.0) % Motley % (Auto) 13.2 (0.0-15.0) % Eos % (Auto) 0.1 (0.0-7.0) % Baso % (Auto) 0.2 (0.0-1.5) % Neut # (Auto) 6.6 H (1.4-5.7) K/uL Lymph # (Auto) 1.0 (0.6-2.4) K/uL Motley # (Auto) 1.2 H (0.0-0.8) K/uL Eos # (Auto) 0.0 (0.0-0.7) K/uL Baso # (Auto) 0.0 (0.0-0.1) K/uL Nucleated RBC % 0.0 /100WBC Nucleated RBCs # 0 K/uL ESR (0-19) mm/hr D-Dimer, Quantitative (0.0-0.50) mg/L FEU ABG pH (7.35-7.45) ABG pCO2 (35-45) mmHG ABG pO2 (75-100) mmHG ABG HCO3 (22-26) mEq/L ABG Total CO2 ABG Base Excess (-2.0-2.0) Lactate 1.3 (0.20-2.00) mmol/L Sodium 137 (136-148) mmol/L Potassium 4.0 (3.5-5.1) mmol/L Chloride 96 L (98-107) mmol/L Carbon Dioxide 35.3 H (21.0-32.0) mmol/L BUN 26 H (7.0-18.0) mg/dL Creatinine 1.3 (0.8-1.3) mg/dL Est Cr Clr Drug Dosing 41.54 mL/min Estimated GFR (MDRD) 52.5 ml/min Glucose 118 H (74-106) mg/dL Hemoglobin A1c (4.5-6.2) % Calcium 9.0 (8.5-10.1) mg/dL Magnesium (1.8-2.4) mg/dL Ferritin (26-388) ng/mL Total Bilirubin 0.9 (0.2-1.0) mg/dL AST 31 (15-37) IU/L ALT 31 (14-63) IU/L Alkaline Phosphatase 75 (46-116) U/L Troponin I < 0.050 (0.000-0.056) ng/mL C-Reactive Protein (0.00-0.90) mg/dL B-Natriuretic Peptide (<100) PG/ML Total Protein 7.3 (6.4-8.2) g/dL Albumin 3.7 (3.4-5.0) g/dL Globulin 3.6 (2.6-4.0) g/dL Albumin/Globulin Ratio 1.0 (0.9-1.6) COVID-19 ([facility]) (NEGATIVE) 01/05/20 01/05/20 01/05/20 Range/Units 11:15 11:15 11:15 WBC (4.0-11.0) K/uL RBC (4.50-5.90) M/uL Hgb (13.0-17.0) g/dL Hct (38.0-50.0) % MCV (80.0-98.0) fL MCH (27.0-32.0) pg MCHC (31.0-37.0) g/dL RDW Std Deviation (28.0-62.0) fl RDW Coeff of Yared (11.0-15.0) % Plt Count (150-400) K/uL MPV (7.40-12.00) fL Neut % (Auto) (48.0-80.0) % Lymph % (Auto) (16.0-40.0) % Motley % (Auto) (0.0-15.0) % Eos % (Auto) (0.0-7.0) % Baso % (Auto) (0.0-1.5) % Neut # (Auto) (1.4-5.7) K/uL Lymph # (Auto) (0.6-2.4) K/uL Motley # (Auto) (0.0-0.8) K/uL Eos # (Auto) (0.0-0.7) K/uL Baso # (Auto) (0.0-0.1) K/uL Nucleated RBC % /100WBC Nucleated RBCs # K/uL ESR (0-19) mm/hr D-Dimer, Quantitative 0.73 H (0.0-0.50) mg/L FEU ABG pH (7.35-7.45) ABG pCO2 (35-45) mmHG ABG pO2 (75-100) mmHG ABG HCO3 (22-26) mEq/L ABG Total CO2 ABG Base Excess (-2.0-2.0) Lactate (0.20-2.00) mmol/L Sodium (136-148) mmol/L Potassium (3.5-5.1) mmol/L Chloride (98-107) mmol/L Carbon Dioxide (21.0-32.0) mmol/L BUN (7.0-18.0) mg/dL Creatinine (0.8-1.3) mg/dL Est Cr Clr Drug Dosing mL/min Estimated GFR (MDRD) ml/min Glucose (74-106) mg/dL Hemoglobin A1c (4.5-6.2) % Calcium (8.5-10.1) mg/dL Magnesium (1.8-2.4) mg/dL Ferritin 189 (26-388) ng/mL Total Bilirubin (0.2-1.0) mg/dL AST (15-37) IU/L ALT (14-63) IU/L Alkaline Phosphatase (46-116) U/L Troponin I (0.000-0.056) ng/mL C-Reactive Protein (0.00-0.90) mg/dL B-Natriuretic Peptide 26 (<100) PG/ML Total Protein (6.4-8.2) g/dL Albumin (3.4-5.0) g/dL Globulin (2.6-4.0) g/dL Albumin/Globulin Ratio (0.9-1.6) COVID-19 ([facility]) (NEGATIVE) 01/05/20 01/05/20 01/05/20 Range/Units 11:15 11:17 11:39 WBC (4.0-11.0) K/uL RBC (4.50-5.90) M/uL Hgb (13.0-17.0) g/dL Hct (38.0-50.0) % MCV (80.0-98.0) fL MCH (27.0-32.0) pg MCHC (31.0-37.0) g/dL RDW Std Deviation (28.0-62.0) fl RDW Coeff of Yared (11.0-15.0) % Plt Count (150-400) K/uL MPV (7.40-12.00) fL Neut % (Auto) (48.0-80.0) % Lymph % (Auto) (16.0-40.0) % Motley % (Auto) (0.0-15.0) % Eos % (Auto) (0.0-7.0) % Baso % (Auto) (0.0-1.5) % Neut # (Auto) (1.4-5.7) K/uL Lymph # (Auto) (0.6-2.4) K/uL Motley # (Auto) (0.0-0.8) K/uL Eos # (Auto) (0.0-0.7) K/uL Baso # (Auto) (0.0-0.1) K/uL Nucleated RBC % /100WBC Nucleated RBCs # K/uL ESR (0-19) mm/hr D-Dimer, Quantitative (0.0-0.50) mg/L FEU ABG pH 7.475 H (7.35-7.45) ABG pCO2 45 (35-45) mmHG ABG pO2 89 (75-100) mmHG ABG HCO3 33 H (22-26) mEq/L ABG Total CO2 29.1 ABG Base Excess 8.6 H (-2.0-2.0) Lactate (0.20-2.00) mmol/L Sodium (136-148) mmol/L Potassium (3.5-5.1) mmol/L Chloride (98-107) mmol/L Carbon Dioxide (21.0-32.0) mmol/L BUN (7.0-18.0) mg/dL Creatinine (0.8-1.3) mg/dL Est Cr Clr Drug Dosing mL/min Estimated GFR (MDRD) ml/min Glucose (74-106) mg/dL Hemoglobin A1c (4.5-6.2) % Calcium (8.5-10.1) mg/dL Magnesium (1.8-2.4) mg/dL Ferritin (26-388) ng/mL Total Bilirubin (0.2-1.0) mg/dL AST (15-37) IU/L ALT (14-63) IU/L Alkaline Phosphatase (46-116) U/L Troponin I (0.000-0.056) ng/mL C-Reactive Protein 2.20 H (0.00-0.90) mg/dL B-Natriuretic Peptide (<100) PG/ML Total Protein (6.4-8.2) g/dL Albumin (3.4-5.0) g/dL Globulin (2.6-4.0) g/dL Albumin/Globulin Ratio (0.9-1.6) COVID-19 ([facility]) POSITIVE H (NEGATIVE) 01/05/20 01/06/20 01/06/20 Range/Units 15:59 05:46 05:46 WBC 4.32 (4.0-11.0) K/uL RBC 3.94 L (4.50-5.90) M/uL Hgb 13.3 (13.0-17.0) g/dL Hct 40.2 (38.0-50.0) % MCV 102.0 H (80.0-98.0) fL MCH 33.8 H (27.0-32.0) pg MCHC 33.1 (31.0-37.0) g/dL RDW Std Deviation 57.7 (28.0-62.0) fl RDW Coeff of Yared 15 (11.0-15.0) % Plt Count 126 L (150-400) K/uL MPV 10.70 (7.40-12.00) fL Neut % (Auto) 75.7 (48.0-80.0) % Lymph % (Auto) 12.5 L (16.0-40.0) % Motley % (Auto) 11.8 (0.0-15.0) % Eos % (Auto) 0.0 (0.0-7.0) % Baso % (Auto) 0.0 (0.0-1.5) % Neut # (Auto) 3.3 (1.4-5.7) K/uL Lymph # (Auto) 0.5 L (0.6-2.4) K/uL Motley # (Auto) 0.5 (0.0-0.8) K/uL Eos # (Auto) 0.0 (0.0-0.7) K/uL Baso # (Auto) 0.0 (0.0-0.1) K/uL Nucleated RBC % 0.0 /100WBC Nucleated RBCs # 0 K/uL ESR 39 H (0-19) mm/hr D-Dimer, Quantitative (0.0-0.50) mg/L FEU ABG pH (7.35-7.45) ABG pCO2 (35-45) mmHG ABG pO2 (75-100) mmHG ABG HCO3 (22-26) mEq/L ABG Total CO2 ABG Base Excess (-2.0-2.0) Lactate (0.20-2.00) mmol/L Sodium 133 L (136-148) mmol/L Potassium 3.5 (3.5-5.1) mmol/L Chloride 94 L (98-107) mmol/L Carbon Dioxide 32.3 H (21.0-32.0) mmol/L BUN 28 H (7.0-18.0) mg/dL Creatinine 1.1 (0.8-1.3) mg/dL Est Cr Clr Drug Dosing 49.10 mL/min Estimated GFR (MDRD) > 60.0 ml/min Glucose 204 H (74-106) mg/dL Hemoglobin A1c (4.5-6.2) % Calcium 7.9 L (8.5-10.1) mg/dL Magnesium (1.8-2.4) mg/dL Ferritin (26-388) ng/mL Total Bilirubin 0.8 (0.2-1.0) mg/dL AST 32 (15-37) IU/L ALT 33 (14-63) IU/L Alkaline Phosphatase 70 (46-116) U/L Troponin I (0.000-0.056) ng/mL C-Reactive Protein (0.00-0.90) mg/dL B-Natriuretic Peptide (<100) PG/ML Total Protein 6.1 L (6.4-8.2) g/dL Albumin 3.1 L (3.4-5.0) g/dL Globulin 3.0 (2.6-4.0) g/dL Albumin/Globulin Ratio 1.0 (0.9-1.6) COVID-19 ([facility]) (NEGATIVE) 01/06/20 01/06/20 Range/Units 05:46 05:46 WBC (4.0-11.0) K/uL RBC (4.50-5.90) M/uL Hgb (13.0-17.0) g/dL Hct (38.0-50.0) % MCV (80.0-98.0) fL MCH (27.0-32.0) pg MCHC (31.0-37.0) g/dL RDW Std Deviation (28.0-62.0) fl RDW Coeff of Yared (11.0-15.0) % Plt Count (150-400) K/uL MPV (7.40-12.00) fL Neut % (Auto) (48.0-80.0) % Lymph % (Auto) (16.0-40.0) % Motley % (Auto) (0.0-15.0) % Eos % (Auto) (0.0-7.0) % Baso % (Auto) (0.0-1.5) % Neut # (Auto) (1.4-5.7) K/uL Lymph # (Auto) (0.6-2.4) K/uL Motley # (Auto) (0.0-0.8) K/uL Eos # (Auto) (0.0-0.7) K/uL Baso # (Auto) (0.0-0.1) K/uL Nucleated RBC % /100WBC Nucleated RBCs # K/uL ESR (0-19) mm/hr D-Dimer, Quantitative (0.0-0.50) mg/L FEU ABG pH (7.35-7.45) ABG pCO2 (35-45) mmHG ABG pO2 (75-100) mmHG ABG HCO3 (22-26) mEq/L ABG Total CO2 ABG Base Excess (-2.0-2.0) Lactate (0.20-2.00) mmol/L Sodium (136-148) mmol/L Potassium (3.5-5.1) mmol/L Chloride (98-107) mmol/L Carbon Dioxide (21.0-32.0) mmol/L BUN (7.0-18.0) mg/dL Creatinine (0.8-1.3) mg/dL Est Cr Clr Drug Dosing mL/min Estimated GFR (MDRD) ml/min Glucose (74-106) mg/dL Hemoglobin A1c 7.2 H (4.5-6.2) % Calcium (8.5-10.1) mg/dL Magnesium 2.0 (1.8-2.4) mg/dL Ferritin (26-388) ng/mL Total Bilirubin (0.2-1.0) mg/dL AST (15-37) IU/L ALT (14-63) IU/L Alkaline Phosphatase (46-116) U/L Troponin I (0.000-0.056) ng/mL C-Reactive Protein (0.00-0.90) mg/dL B-Natriuretic Peptide (<100) PG/ML Total Protein (6.4-8.2) g/dL Albumin (3.4-5.0) g/dL Globulin (2.6-4.0) g/dL Albumin/Globulin Ratio (0.9-1.6) COVID-19 ([facility]SE) (NEGATIVE) Santi Results Last 24 Hours: Microbiology 01/05/20 17:53 Gram Stain - Final Sputum - Expectorated 01/05/20 15:03 Anaerobic Blood Culture - Final Blood - Venous Med Orders - Current: Current Medications Acetaminophen (Tylenol) 650 mg PO Q4H PRN PRN Reason: Pain (Mild 1-3)/fever Last Admin: 01/06/20 06:36 Dose: 650 mg Documented by: Albuterol/Ipratropium (Combivent Respimat) 0 gm INH Q6HRRT [facility] Last Admin: 01/06/20 06:28 Dose: 1 puff Documented by: Albuterol/Ipratropium (Duoneb 3.0-0.5 Mg/3 Ml) 3 ml NEB Q4HRRT PRN PRN Reason: Dyspnea Aspirin (Aspirin) 81 mg PO DAILY [facility] Last Admin: 01/06/20 08:21 Dose: 81 mg Documented by: Enoxaparin Sodium (Lovenox) 40 mg SUBCUT BID [facility] Last Admin: 01/06/20 08:21 Dose: 40 mg Documented by: Furosemide (Lasix) 40 mg PO DAILY [facility] Last Admin: 01/06/20 08:21 Dose: 40 mg Documented by: Pantoprazole Sodium 40 mg/ (Sodium Chloride) 10 mls @ 300 mls/hr IV DAILY [facility] Last Admin: 01/06/20 08:20 Dose: 300 mls/hr Documented by: Azithromycin 500 mg/ Sodium (Chloride) 250 mls @ 250 mls/hr IV DAILY [facility] Last Admin: 01/06/20 08:28 Dose: 250 mls/hr Documented by: Methylprednisolone Sodium Succinate (Solu-Medrol) 40 mg IVPUSH Q8H [facility] Last Admin: 01/06/20 06:28 Dose: 40 mg Documented by: Metolazone (Zaroxolyn) 2.5 mg PO MOWEFR [facility] Last Admin: 01/05/20 18:13 Dose: 5 mg Documented by: Fluticasone/Umeclidin/Vilanter [ Trelegy Ellipta 100- 62.5-25 Mcg] 1 each INH DAILY [facility] Ondansetron HCl (Zofran) 4 mg IVPUSH Q4H PRN PRN Reason: Nausea Pramipexole Dihydrochloride (Mirapex) 1 mg PO BEDTIME [facility] Last Admin: 01/05/20 21:07 Dose: 1 mg Documented by: Sodium Chloride (Saline Flush) 10 ml FLUSH ASDIRECTED PRN PRN Reason: Keep Vein Open Sodium Chloride (Saline Flush) 2.5 ml FLUSH ASDIRECTED PRN PRN Reason: Keep Vein Open Spironolactone (Aldactone) 25 mg PO DAILY [facility] Last Admin: 01/06/20 08:22 Dose: 25 mg Documented by: Discontinued Medications Albuterol/Ipratropium (Combivent Respimat) 0 gm INH Q4H PRN PRN Reason: Dyspnea Dexamethasone (Dexamethasone) 6 mg IVPUSH DAILY [facility] Last Admin: 01/05/20 15:22 Dose: 6 mg Documented by: Furosemide (Lasix) 20 mg IVPUSH ONETIME ONE Stop: 01/05/20 22:58 Last Admin: 01/05/20 23:41 Dose: 20 mg Documented by: Lactated Ringer's (Ringers, Lactated) 1,000 mls @ 75 mls/hr IV ASDIRECTED [facility] Stop: 01/06/20 04:19 Last Admin: 01/05/20 15:27 Dose: 75 mls/hr Documented by: Spironolactone (Aldactone) 25 mg PO DAILY [facility] - Exam General: Alert, Oriented, Cooperative, No Acute Distress Lungs: Normal Respiratory Effort, Other (wheezing b/l in lung bases) Cardiovascular: Regular Rate, Regular Rhythm GI/Abdominal Exam: Normal Bowel Sounds, Soft, Non-Tender, No Distention, Other (Obese) Extremities: Other (1+ non-pitting edema b/l) Sepsis Event Note - Evaluation Sepsis Screening Result: No Definite Risk - Focused Exam Vital Signs: Vital Signs Temp Pulse Resp BP BP Pulse Ox 01/06/20 08:16 36.6 C 62 20 133/76 95 01/06/20 03:00 36.2 C 59 L 20 120/63 94 L 01/05/20 23:00 36.8 C 54 L 20 116/61 90 L - Problem List Review Problem List Initiated/Reviewed/Updated: Yes - My Orders Last 24 Hours: My Active Orders 01/05/20 Lunch Regular Diet [DIET] 01/05/20 14:44 Oxygen Therapy [RC] PRN Up ad Wanda [RC] ASDIRECTED VTE/DVT Education [RC] PER UNIT ROUTINE Vital Signs [RC] Q4H Acetaminophen [TylenoL] 650 mg PO Q4H PRN Ondansetron [Zofran] 4 mg IVPUSH Q4H PRN Blood Culture x2 Reflex Set [OM.PC] Stat Resuscitation Status Routine 01/05/20 14:52 Incentive Spirometry [RT Incentive Spirometry] [RC] ASDIRECTED RT Post Treatment Assessment [RC] Click to Edit RT Pre-Treatment Assessment [RC] Click to Edit Telemetry Monitoring [Cardiac Monitoring] [RC] Q8H 01/05/20 15:00 Azithromycin [Zithromax] 500 mg Sodium Chloride 0.9% [Normal Saline (AdvBag)] 250 ml IV DAILY Pantoprazole [ProTONIX IV] 40 mg Sodium Chloride 0.9% [Normal Saline] 10 ml IV DAILY 01/05/20 15:03 CULTURE BLOOD [BC] Stat 01/05/20 16:43 CULTURE BLOOD [BC] Stat 01/05/20 17:30 metOLazone [Zaroxolyn] 2.5 mg PO MOWEFR 01/05/20 17:53 CULTURE SPUTUM + SMEAR [RM] Urgent 01/05/20 19:07 RT Aerosol Therapy [RC] ASDIRECTED Albuterol/Ipratropium [DuoNeb 3.0-0.5 MG/3 ML] 3 ml NEB Q4HRRT PRN 01/05/20 19:15 Albuterol/Ipratropium [Combivent Respimat] See Dose Instructions INH Q6HRRT 01/05/20 21:00 Enoxaparin [Lovenox] 40 mg SUBCUT BID Pramipexole [Mirapex] 1 mg PO BEDTIME 01/05/20 23:00 methylPREDNISolone Sod Succ [Solu-MEDROL] 40 mg IVPUSH Q8H 01/06/20 09:00 Aspirin 81 mg PO DAILY Furosemide [Lasix] 40 mg PO DAILY Non-Formulary Medication [NF Drug] 1 each INH DAILY Spironolactone [Aldactone] 25 mg PO DAILY 01/07/20 05:11 CBC WITH AUTO DIFF [HEME] AM CMP [COMPREHENSIVE METABOLIC PN,CMP] [CHEM] AM - Plan Plan:: Assessment and Plan: 1. Acute on chronic hypoxic hypercapnic respiratory failure secondary to COPD exacerbation vs acute bronchitis: - COVID19 test positive. Continue supplemental oxygen to maintain O2 sat >92%. Patient at home baseline oxygen level is 3 L. Continue Combivent INH q6 KIRAN, DuoNebs q4 PRN, incentive spirometer, IV solumedrol 40 q8h and IV azithromycin. Sputum culture pending. Blood cultures pending. - CXR showed emphysematous changes and no areas of consolidation. 2. Diabetes mellitus type II: - HgbA1c is 7.2. Start ADA diet, novolog SSI and accu-checks TIDAC. 3. DVT prophylaxis: Lovenox 40 mg subcut BID. 4. 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 <Ryland Neville - Last Filed: 01/07/20 21:54> - General Info Subjective Update: I have seen and evaluated the patient and agree with the residents note unless specified in my note - Patient Data Vitals - Most Recent: Last Vital Signs Temp 37.1 C 01/07/20 20:00 Pulse 76 01/07/20 20:00 Resp 20 01/07/20 20:00 BP 116/61 01/07/20 20:00 Pulse Ox 90 L 01/07/20 20:00 I&O - Last 24 Hours: Intake & Output 01/07/20 01/07/20 01/07/20 06:59 14:59 22:59 Intake Total 600 410 700 Output Total 950 1350 Balance -350 410 -650 Lab Results Last 24 Hours: Laboratory Results - last 24 hr 01/07/20 01/07/20 01/07/20 Range/Units 06:23 06:23 06:23 WBC 9.73 (4.0-11.0) K/uL RBC 4.12 L (4.50-5.90) M/uL Hgb 13.9 (13.0-17.0) g/dL Hct 42.0 (38.0-50.0) % MCV 101.9 H (80.0-98.0) fL MCH 33.7 H (27.0-32.0) pg MCHC 33.1 (31.0-37.0) g/dL RDW Std Deviation 55.6 (28.0-62.0) fl RDW Coeff of Yared 15 (11.0-15.0) % Plt Count 124 L (150-400) K/uL MPV 10.80 (7.40-12.00) fL Neut % (Auto) 81.8 H (48.0-80.0) % Lymph % (Auto) 9.5 L (16.0-40.0) % Motley % (Auto) 8.6 (0.0-15.0) % Eos % (Auto) 0.0 (0.0-7.0) % Baso % (Auto) 0.1 (0.0-1.5) % Neut # (Auto) 8.0 H (1.4-5.7) K/uL Lymph # (Auto) 0.9 (0.6-2.4) K/uL Motley # (Auto) 0.8 (0.0-0.8) K/uL Eos # (Auto) 0.0 (0.0-0.7) K/uL Baso # (Auto) 0.0 (0.0-0.1) K/uL Nucleated RBC % 0.0 /100WBC Nucleated RBCs # 0 K/uL Sodium 138 (136-148) mmol/L Potassium 3.1 L (3.5-5.1) mmol/L Chloride 98 (98-107) mmol/L Carbon Dioxide 33.9 H (21.0-32.0) mmol/L BUN 30 H (7.0-18.0) mg/dL Creatinine 1.0 (0.8-1.3) mg/dL Est Cr Clr Drug Dosing 54.01 mL/min Estimated GFR (MDRD) > 60.0 ml/min Glucose 205 H (74-106) mg/dL POC Glucose (60-110) mg/dL Calcium 8.8 (8.5-10.1) mg/dL Magnesium 2.1 (1.8-2.4) mg/dL Total Bilirubin 0.6 (0.2-1.0) mg/dL AST 32 (15-37) IU/L ALT 27 (14-63) IU/L Alkaline Phosphatase 63 (46-116) U/L Total Protein 6.7 (6.4-8.2) g/dL Albumin 2.9 L (3.4-5.0) g/dL Globulin 3.8 (2.6-4.0) g/dL Albumin/Globulin Ratio 0.8 L (0.9-1.6) 01/07/20 01/07/20 01/07/20 Range/Units 06:25 11:35 18:07 WBC (4.0-11.0) K/uL RBC (4.50-5.90) M/uL Hgb (13.0-17.0) g/dL Hct (38.0-50.0) % MCV (80.0-98.0) fL MCH (27.0-32.0) pg MCHC (31.0-37.0) g/dL RDW Std Deviation (28.0-62.0) fl RDW Coeff of Yared (11.0-15.0) % Plt Count (150-400) K/uL MPV (7.40-12.00) fL Neut % (Auto) (48.0-80.0) % Lymph % (Auto) (16.0-40.0) % Motley % (Auto) (0.0-15.0) % Eos % (Auto) (0.0-7.0) % Baso % (Auto) (0.0-1.5) % Neut # (Auto) (1.4-5.7) K/uL Lymph # (Auto) (0.6-2.4) K/uL Motley # (Auto) (0.0-0.8) K/uL Eos # (Auto) (0.0-0.7) K/uL Baso # (Auto) (0.0-0.1) K/uL Nucleated RBC % /100WBC Nucleated RBCs # K/uL Sodium (136-148) mmol/L Potassium (3.5-5.1) mmol/L Chloride (98-107) mmol/L Carbon Dioxide (21.0-32.0) mmol/L BUN (7.0-18.0) mg/dL Creatinine (0.8-1.3) mg/dL Est Cr Clr Drug Dosing mL/min Estimated GFR (MDRD) ml/min Glucose (74-106) mg/dL POC Glucose 215 H 255 H 143 H (60-110) mg/dL Calcium (8.5-10.1) mg/dL Magnesium (1.8-2.4) mg/dL Total Bilirubin (0.2-1.0) mg/dL AST (15-37) IU/L ALT (14-63) IU/L Alkaline Phosphatase (46-116) U/L Total Protein (6.4-8.2) g/dL Albumin (3.4-5.0) g/dL Globulin (2.6-4.0) g/dL Albumin/Globulin Ratio (0.9-1.6) Santi Results Last 24 Hours: Microbiology 01/05/20 16:43 Aerobic Blood Culture - Preliminary Blood - Venous - Lab Draw NO GROWTH AFTER 2 DAYS Anaerobic Blood Culture - Preliminary NO GROWTH AFTER 2 DAYS 01/05/20 15:03 Aerobic Blood Culture - Preliminary Blood - Venous NO GROWTH AFTER 2 DAYS Anaerobic Blood Culture - Final 01/05/20 17:53 Gram Stain - Final Sputum - Expectorated Sputum Culture - Preliminary Klebsiella Oxytoca YEAST Normal Respiratory Hilda Med Orders - Current: Current Medications Acetaminophen (Tylenol) 650 mg PO Q4H PRN PRN Reason: Pain (Mild 1-3)/fever Last Admin: 01/07/20 20:35 Dose: 650 mg Documented by: Albuterol/Ipratropium (Combivent Respimat) 0 gm INH Q6HRRT [facility] Last Admin: 01/07/20 18:12 Dose: 1 puff Documented by: Albuterol/Ipratropium (Duoneb 3.0-0.5 Mg/3 Ml) 3 ml NEB Q4HRRT PRN PRN Reason: Dyspnea Aspirin (Aspirin) 81 mg PO DAILY [facility] Last Admin: 01/07/20 08:23 Dose: 81 mg Documented by: Enoxaparin Sodium (Lovenox) 40 mg SUBCUT BID [facility] Last Admin: 01/07/20 20:36 Dose: 40 mg Documented by: Furosemide (Lasix) 40 mg PO DAILY [facility] Last Admin: 01/07/20 08:23 Dose: 40 mg Documented by: Pantoprazole Sodium 40 mg/ (Sodium Chloride) 10 mls @ 300 mls/hr IV DAILY [facility] Last Admin: 01/07/20 08:23 Dose: 300 mls/hr Documented by: Azithromycin 500 mg/ Sodium (Chloride) 250 mls @ 250 mls/hr IV DAILY [facility] Last Admin: 01/07/20 09:24 Dose: 250 mls/hr Documented by: Levofloxacin/Dextrose 750 mg/ (Premix) 150 mls @ 100 mls/hr IV Q24H [facility] Last Admin: 01/07/20 11:29 Dose: 100 mls/hr Documented by: Insulin Aspart (Novolog) 0 unit SUBCUT TIDAC [facility]; Protocol Last Admin: 01/07/20 18:07 Dose: Not Given Documented by: Methylprednisolone Sodium Succinate (Solu-Medrol) 40 mg IVPUSH Q12H [facility] Last Admin: 01/07/20 11:38 Dose: 40 mg Documented by: Metolazone (Zaroxolyn) 2.5 mg PO MOWEFR [facility] Last Admin: 01/07/20 18:10 Dose: 2.5 mg Documented by: Fluticasone/Umeclidin/Vilanter [ Trelegy Ellipta 100- 62.5-25 Mcg] 1 each INH DAILY [facility] Last Admin: 01/07/20 09:32 Dose: Not Given Documented by: Ondansetron HCl (Zofran) 4 mg IVPUSH Q4H PRN PRN Reason: Nausea Pramipexole Dihydrochloride (Mirapex) 1 mg PO BEDTIME [facility] Last Admin: 01/07/20 20:36 Dose: 1 mg Documented by: Sodium Chloride (Saline Flush) 10 ml FLUSH ASDIRECTED PRN PRN Reason: Keep Vein Open Sodium Chloride (Saline Flush) 2.5 ml FLUSH ASDIRECTED PRN PRN Reason: Keep Vein Open Spironolactone (Aldactone) 25 mg PO DAILY [facility] Last Admin: 01/07/20 08:23 Dose: 25 mg Documented by: Discontinued Medications Albuterol/Ipratropium (Combivent Respimat) 0 gm INH Q4H PRN PRN Reason: Dyspnea Dexamethasone (Dexamethasone) 6 mg IVPUSH DAILY [facility] Last Admin: 01/05/20 15:22 Dose: 6 mg Documented by: Furosemide (Lasix) 20 mg IVPUSH ONETIME ONE Stop: 01/05/20 22:58 Last Admin: 01/05/20 23:41 Dose: 20 mg Documented by: Lactated Ringer's (Ringers, Lactated) 1,000 mls @ 75 mls/hr IV ASDIRECTED KIRAN Stop: 01/06/20 04:19 Last Admin: 01/05/20 15:27 Dose: 75 mls/hr Documented by: Methylprednisolone Sodium Succinate (Solu-Medrol) 40 mg IVPUSH Q8H [facility] Last Admin: 01/07/20 06:17 Dose: 40 mg Documented by: Potassium Chloride (Klor-Con M20) 40 meq PO ONETIME ONE Stop: 01/07/20 08:01 Last Admin: 01/07/20 08:22 Dose: 40 meq Documented by: Spironolactone (Aldactone) 25 mg PO DAILY [facility] Sepsis Event Note - Focused Exam Vital Signs: Vital Signs Temp Pulse Resp BP Pulse Ox 01/07/20 20:00 37.1 C 76 20 116/61 90 L 01/07/20 16:07 36.9 C 76 20 121/64 93 L 01/07/20 11:26 37.2 C 79 19 146/79 H 93 L
[2020-01-06] MEDS ORDERED: Spironolactone 25 MG Tab PO SCH (09:00)
[2020-01-06] MEDS: Fluticasone/Umeclidin/Vilanter [Trelegy Ellipta 100-62.5-25 Mcg] INH SCH (10:58)
[2020-01-06] MEDS: Insulin Aspart 100 Units/ML 3 ML Pen SUBCUT SCH ×2 (12:09→18:34)
[2020-01-06] MEDS: Pramipexole 0.25 MG Tab PO SCH (20:37)
[2020-01-07] MEDS: Albuterol/Ipratropium 4 GM Inhalation Spray INH SCH ×4 (05:50→23:13)
[2020-01-07] MEDS: methylPREDNISolone Sodium Succinate 40 MG/1 ML SDV IVPUSH SCH ×3 (06:17→23:13)
[2020-01-07 07:08] LABS: BLOOD UREA NITROGEN,BUN 30 mg/dL (7.0-18.0); CARBON DIOXIDE,CO2 33.9 mmol/L (21.0-32.0); CHLORIDE,CL 98 mmol/L (98-107); GLUCOSE RANDOM 205 mg/dL (74-106); POTASSIUM,K 3.1 mmol/L (3.5-5.1); SODIUM,NA 138 mmol/L (136-148)
[2020-01-07] MEDS ORDERED: Potassium Chloride 20 MEQ Tab.ER PO ONE (08:00)
[2020-01-07] MEDS: Insulin Aspart 100 Units/ML 3 ML Pen SUBCUT SCH ×4 (08:20→18:07)
[2020-01-07] MEDS: Furosemide 40 MG Tab PO SCH (08:23)
[2020-01-07] MEDS: Enoxaparin 40 MG/0.4 ML Syringe SUBCUT SCH ×2 (08:23→20:36)
[2020-01-07] MEDS: Pantoprazole 40 MG in Sodium Chloride 0.9% 10 ML IV SCH ×2 (08:23→09:16)
[2020-01-07] MEDS: Aspirin 81 MG Tab.Chew PO SCH (08:23)
[2020-01-07] MEDS: Spironolactone 25 MG Tab PO SCH (08:23)
--- NOTE | 2020-01-07 08:47 | PCM.PN ---
<Johnson Peng M - Last Filed: 01/07/20 10:56> - General Info Date of Service: 01/07/20 Subjective Update: Afebrile overnight, reports breathing is better and cough very minimal. Tolerating oral diet, urinating and having bowel movements. - Patient Data Vitals - Most Recent: Last Vital Signs Temp 36.6 C 01/07/20 03:18 Pulse 64 01/07/20 03:18 Resp 20 01/07/20 03:57 BP 120/61 01/07/20 03:18 Pulse Ox 91 L 01/07/20 03:57 Weight - Most Recent: 136.078 kg I&O - Last 24 Hours: Intake & Output 01/06/20 01/07/20 01/07/20 22:59 06:59 14:59 Intake Total 800 600 Output Total 1150 950 Balance -350 -350 Lab Results Last 24 Hours: Laboratory Results - last 24 hr 01/06/20 01/06/20 01/07/20 Range/Units 11:55 18:32 06:23 WBC 9.73 (4.0-11.0) K/uL RBC 4.12 L (4.50-5.90) M/uL Hgb 13.9 (13.0-17.0) g/dL Hct 42.0 (38.0-50.0) % MCV 101.9 H (80.0-98.0) fL MCH 33.7 H (27.0-32.0) pg MCHC 33.1 (31.0-37.0) g/dL RDW Std Deviation 55.6 (28.0-62.0) fl RDW Coeff of Yared 15 (11.0-15.0) % Plt Count 124 L (150-400) K/uL MPV 10.80 (7.40-12.00) fL Neut % (Auto) 81.8 H (48.0-80.0) % Lymph % (Auto) 9.5 L (16.0-40.0) % [place] % (Auto) 8.6 (0.0-15.0) % Eos % (Auto) 0.0 (0.0-7.0) % Baso % (Auto) 0.1 (0.0-1.5) % Neut # (Auto) 8.0 H (1.4-5.7) K/uL Lymph # (Auto) 0.9 (0.6-2.4) K/uL [place] # (Auto) 0.8 (0.0-0.8) K/uL Eos # (Auto) 0.0 (0.0-0.7) K/uL Baso # (Auto) 0.0 (0.0-0.1) K/uL Nucleated RBC % 0.0 /100WBC Nucleated RBCs # 0 K/uL Sodium (136-148) mmol/L Potassium (3.5-5.1) mmol/L Chloride (98-107) mmol/L Carbon Dioxide (21.0-32.0) mmol/L BUN (7.0-18.0) mg/dL Creatinine (0.8-1.3) mg/dL Est Cr Clr Drug Dosing mL/min Estimated GFR (MDRD) ml/min Glucose (74-106) mg/dL POC Glucose 248 H 214 H (60-110) mg/dL Calcium (8.5-10.1) mg/dL Magnesium (1.8-2.4) mg/dL Total Bilirubin (0.2-1.0) mg/dL AST (15-37) IU/L ALT (14-63) IU/L Alkaline Phosphatase (46-116) U/L Total Protein (6.4-8.2) g/dL Albumin (3.4-5.0) g/dL Globulin (2.6-4.0) g/dL Albumin/Globulin Ratio (0.9-1.6) 01/07/20 01/07/20 01/07/20 Range/Units 06:23 06:23 06:25 WBC (4.0-11.0) K/uL RBC (4.50-5.90) M/uL Hgb (13.0-17.0) g/dL Hct (38.0-50.0) % MCV (80.0-98.0) fL MCH (27.0-32.0) pg MCHC (31.0-37.0) g/dL RDW Std Deviation (28.0-62.0) fl RDW Coeff of Yared (11.0-15.0) % Plt Count (150-400) K/uL MPV (7.40-12.00) fL Neut % (Auto) (48.0-80.0) % Lymph % (Auto) (16.0-40.0) % [place] % (Auto) (0.0-15.0) % Eos % (Auto) (0.0-7.0) % Baso % (Auto) (0.0-1.5) % Neut # (Auto) (1.4-5.7) K/uL Lymph # (Auto) (0.6-2.4) K/uL [place] # (Auto) (0.0-0.8) K/uL Eos # (Auto) (0.0-0.7) K/uL Baso # (Auto) (0.0-0.1) K/uL Nucleated RBC % /100WBC Nucleated RBCs # K/uL Sodium 138 (136-148) mmol/L Potassium 3.1 L (3.5-5.1) mmol/L Chloride 98 (98-107) mmol/L Carbon Dioxide 33.9 H (21.0-32.0) mmol/L BUN 30 H (7.0-18.0) mg/dL Creatinine 1.0 (0.8-1.3) mg/dL Est Cr Clr Drug Dosing 54.01 mL/min Estimated GFR (MDRD) > 60.0 ml/min Glucose 205 H (74-106) mg/dL POC Glucose 215 H (60-110) mg/dL Calcium 8.8 (8.5-10.1) mg/dL Magnesium 2.1 (1.8-2.4) mg/dL Total Bilirubin 0.6 (0.2-1.0) mg/dL AST 32 (15-37) IU/L ALT 27 (14-63) IU/L Alkaline Phosphatase 63 (46-116) U/L Total Protein 6.7 (6.4-8.2) g/dL Albumin 2.9 L (3.4-5.0) g/dL Globulin 3.8 (2.6-4.0) g/dL Albumin/Globulin Ratio 0.8 L (0.9-1.6) Santi Results Last 24 Hours: Microbiology 01/05/20 17:53 Gram Stain - Final Sputum - Expectorated Sputum Culture - Preliminary Klebsiella Oxytoca 01/05/20 16:43 Aerobic Blood Culture - Preliminary Blood - Venous - Lab Draw NO GROWTH AFTER 1 DAY Anaerobic Blood Culture - Preliminary NO GROWTH AFTER 1 DAY 01/05/20 15:03 Aerobic Blood Culture - Preliminary Blood - Venous NO GROWTH AFTER 1 DAY Anaerobic Blood Culture - Final Med Orders - Current: Current Medications Acetaminophen (Tylenol) 650 mg PO Q4H PRN PRN Reason: Pain (Mild 1-3)/fever Last Admin: 01/06/20 16:26 Dose: 650 mg Documented by: Albuterol/Ipratropium (Combivent Respimat) 0 gm INH Q6HRRT [facility] Last Admin: 01/07/20 05:50 Dose: 1 puff Documented by: Albuterol/Ipratropium (Duoneb 3.0-0.5 Mg/3 Ml) 3 ml NEB Q4HRRT PRN PRN Reason: Dyspnea Aspirin (Aspirin) 81 mg PO DAILY [facility] Last Admin: 01/06/20 08:21 Dose: 81 mg Documented by: Enoxaparin Sodium (Lovenox) 40 mg SUBCUT BID [facility] Last Admin: 01/06/20 20:37 Dose: 40 mg Documented by: Furosemide (Lasix) 40 mg PO DAILY [facility] Last Admin: 01/06/20 08:21 Dose: 40 mg Documented by: Pantoprazole Sodium 40 mg/ (Sodium Chloride) 10 mls @ 300 mls/hr IV DAILY [facility] Last Admin: 01/06/20 08:20 Dose: 300 mls/hr Documented by: Azithromycin 500 mg/ Sodium (Chloride) 250 mls @ 250 mls/hr IV DAILY [facility] Last Admin: 01/06/20 08:28 Dose: 250 mls/hr Documented by: Insulin Aspart (Novolog) 0 unit SUBCUT TIDAC [facility]; Protocol Last Admin: 01/06/20 18:34 Dose: 2 units Documented by: Methylprednisolone Sodium Succinate (Solu-Medrol) 40 mg IVPUSH Q8H [facility] Last Admin: 01/07/20 06:17 Dose: 40 mg Documented by: Metolazone (Zaroxolyn) 2.5 mg PO MOWEFR [facility] Last Admin: 01/05/20 18:13 Dose: 5 mg Documented by: Fluticasone/Umeclidin/Vilanter [ Trelegy Ellipta 100- 62.5-25 Mcg] 1 each INH DAILY [facility] Last Admin: 01/06/20 10:58 Dose: 1 each Documented by: Ondansetron HCl (Zofran) 4 mg IVPUSH Q4H PRN PRN Reason: Nausea Pramipexole Dihydrochloride (Mirapex) 1 mg PO BEDTIME [facility] Last Admin: 01/06/20 20:37 Dose: 1 mg Documented by: Sodium Chloride (Saline Flush) 10 ml FLUSH ASDIRECTED PRN PRN Reason: Keep Vein Open Sodium Chloride (Saline Flush) 2.5 ml FLUSH ASDIRECTED PRN PRN Reason: Keep Vein Open Spironolactone (Aldactone) 25 mg PO DAILY [facility] Last Admin: 01/06/20 08:22 Dose: 25 mg Documented by: Discontinued Medications Albuterol/Ipratropium (Combivent Respimat) 0 gm INH Q4H PRN PRN Reason: Dyspnea Dexamethasone (Dexamethasone) 6 mg IVPUSH DAILY [facility] Last Admin: 01/05/20 15:22 Dose: 6 mg Documented by: Furosemide (Lasix) 20 mg IVPUSH ONETIME ONE Stop: 01/05/20 22:58 Last Admin: 01/05/20 23:41 Dose: 20 mg Documented by: Lactated Ringer's (Ringers, Lactated) 1,000 mls @ 75 mls/hr IV ASDIRECTED [facility] Stop: 01/06/20 04:19 Last Admin: 01/05/20 15:27 Dose: 75 mls/hr Documented by: Potassium Chloride (Klor-Con M20) 40 meq PO ONETIME ONE Stop: 01/07/20 08:01 Spironolactone (Aldactone) 25 mg PO DAILY [facility] - Exam General: Alert, Oriented, Cooperative, No Acute Distress HEENT: Other (hard of hearing) Lungs: Normal Respiratory Effort, Other (quiet breath sounds b/l, mild rales in bases b/l) Cardiovascular: Regular Rate, Regular Rhythm GI/Abdominal Exam: Normal Bowel Sounds, Soft, Non-Tender, No Distention Extremities: Other (1+ non-pitting edema b/l) Sepsis Event Note - Evaluation Sepsis Screening Result: No Definite Risk - Focused Exam Vital Signs: Vital Signs Temp Pulse Resp BP Pulse Ox 01/07/20 03:57 20 91 L 01/07/20 03:18 36.6 C 64 20 120/61 91 L 08/18/20 23:16 36.8 C 69 20 127/67 92 L - Problem List Review Problem List Initiated/Reviewed/Updated: Yes - My Orders Last 24 Hours: My Active Orders 01/06/20 09:00 Aspirin 81 mg PO DAILY Furosemide [Lasix] 40 mg PO DAILY Non-Formulary Medication [NF Drug] 1 each INH DAILY Spironolactone [Aldactone] 25 mg PO DAILY 01/06/20 10:02 Accu Check [Blood Glucose Check, Bedside] [RC] TIDAC 01/06/20 Lunch ADA Diabetic [[place] [employer] Diet] [DIET] 01/06/20 11:30 Insulin Aspart [NovoLOG] See Protocol SUBCUT TIDAC - Plan Plan:: Assessment and Plan: 1. Acute on chronic hypoxic hypercapnic respiratory failure secondary to COPD exacerbation vs acute bronchitis: - COVID19 test positive. Continue supplemental oxygen to maintain O2 sat > 88%. Patient at home baseline oxygen level is 3 L. Continue Combivent INH q6 KIRAN, DuoNebs q4 PRN, incentive spirometer and IV azithromycin. Will decrease to IV solumedrol 40 q12. Sputum culture positive for klebsiella so will add IV Levaquin. Blood cultures negative. - CXR showed emphysematous changes and no areas of consolidation. 2. Diabetes mellitus type II: - HgbA1c is 7.2. Continue ADA diet, NovoLog SSI and accu-checks TIDAC. 3. DVT prophylaxis: Lovenox 40 mg subcut BID. 4. 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 <Ryland Neville - Last Filed: 01/07/20 21:52> - General Info Subjective Update: I have seen and evaluated the patient and agree with the residents note unless specified in my note - Patient Data Vitals - Most Recent: Last Vital Signs Temp 37.1 C 01/07/20 20:00 Pulse 76 01/07/20 20:00 Resp 20 01/07/20 20:00 BP 116/61 01/07/20 20:00 Pulse Ox 90 L 01/07/20 20:00 I&O - Last 24 Hours: Intake & Output 01/07/20 01/07/20 01/07/20 06:59 14:59 22:59 Intake Total 600 410 700 Output Total 950 1350 Balance -350 410 -650 Lab Results Last 24 Hours: Laboratory Results - last 24 hr 01/07/20 01/07/20 01/07/20 Range/Units 06:23 06:23 06:23 WBC 9.73 (4.0-11.0) K/uL RBC 4.12 L (4.50-5.90) M/uL Hgb 13.9 (13.0-17.0) g/dL Hct 42.0 (38.0-50.0) % MCV 101.9 H (80.0-98.0) fL MCH 33.7 H (27.0-32.0) pg MCHC 33.1 (31.0-37.0) g/dL RDW Std Deviation 55.6 (28.0-62.0) fl RDW Coeff of Yared 15 (11.0-15.0) % Plt Count 124 L (150-400) K/uL MPV 10.80 (7.40-12.00) fL Neut % (Auto) 81.8 H (48.0-80.0) % Lymph % (Auto) 9.5 L (16.0-40.0) % [place] % (Auto) 8.6 (0.0-15.0) % Eos % (Auto) 0.0 (0.0-7.0) % Baso % (Auto) 0.1 (0.0-1.5) % Neut # (Auto) 8.0 H (1.4-5.7) K/uL Lymph # (Auto) 0.9 (0.6-2.4) K/uL [place] # (Auto) 0.8 (0.0-0.8) K/uL Eos # (Auto) 0.0 (0.0-0.7) K/uL Baso # (Auto) 0.0 (0.0-0.1) K/uL Nucleated RBC % 0.0 /100WBC Nucleated RBCs # 0 K/uL Sodium 138 (136-148) mmol/L Potassium 3.1 L (3.5-5.1) mmol/L Chloride 98 (98-107) mmol/L Carbon Dioxide 33.9 H (21.0-32.0) mmol/L BUN 30 H (7.0-18.0) mg/dL Creatinine 1.0 (0.8-1.3) mg/dL Est Cr Clr Drug Dosing 54.01 mL/min Estimated GFR (MDRD) > 60.0 ml/min Glucose 205 H (74-106) mg/dL POC Glucose (60-110) mg/dL Calcium 8.8 (8.5-10.1) mg/dL Magnesium 2.1 (1.8-2.4) mg/dL Total Bilirubin 0.6 (0.2-1.0) mg/dL AST 32 (15-37) IU/L ALT 27 (14-63) IU/L Alkaline Phosphatase 63 (46-116) U/L Total Protein 6.7 (6.4-8.2) g/dL Albumin 2.9 L (3.4-5.0) g/dL Globulin 3.8 (2.6-4.0) g/dL Albumin/Globulin Ratio 0.8 L (0.9-1.6) 01/07/20 01/07/20 01/07/20 Range/Units 06:25 11:35 18:07 WBC (4.0-11.0) K/uL RBC (4.50-5.90) M/uL Hgb (13.0-17.0) g/dL Hct (38.0-50.0) % MCV (80.0-98.0) fL MCH (27.0-32.0) pg MCHC (31.0-37.0) g/dL RDW Std Deviation (28.0-62.0) fl RDW Coeff of Yared (11.0-15.0) % Plt Count (150-400) K/uL MPV (7.40-12.00) fL Neut % (Auto) (48.0-80.0) % Lymph % (Auto) (16.0-40.0) % [place] % (Auto) (0.0-15.0) % Eos % (Auto) (0.0-7.0) % Baso % (Auto) (0.0-1.5) % Neut # (Auto) (1.4-5.7) K/uL Lymph # (Auto) (0.6-2.4) K/uL [place] # (Auto) (0.0-0.8) K/uL Eos # (Auto) (0.0-0.7) K/uL Baso # (Auto) (0.0-0.1) K/uL Nucleated RBC % /100WBC Nucleated RBCs # K/uL Sodium (136-148) mmol/L Potassium (3.5-5.1) mmol/L Chloride (98-107) mmol/L Carbon Dioxide (21.0-32.0) mmol/L BUN (7.0-18.0) mg/dL Creatinine (0.8-1.3) mg/dL Est Cr Clr Drug Dosing mL/min Estimated GFR (MDRD) ml/min Glucose (74-106) mg/dL POC Glucose 215 H 255 H 143 H (60-110) mg/dL Calcium (8.5-10.1) mg/dL Magnesium (1.8-2.4) mg/dL Total Bilirubin (0.2-1.0) mg/dL AST (15-37) IU/L ALT (14-63) IU/L Alkaline Phosphatase (46-116) U/L Total Protein (6.4-8.2) g/dL Albumin (3.4-5.0) g/dL Globulin (2.6-4.0) g/dL Albumin/Globulin Ratio (0.9-1.6) Santi Results Last 24 Hours: Microbiology 01/05/20 16:43 Aerobic Blood Culture - Preliminary Blood - Venous - Lab Draw NO GROWTH AFTER 2 DAYS Anaerobic Blood Culture - Preliminary NO GROWTH AFTER 2 DAYS 01/05/20 15:03 Aerobic Blood Culture - Preliminary Blood - Venous NO GROWTH AFTER 2 DAYS Anaerobic Blood Culture - Final 01/05/20 17:53 Gram Stain - Final Sputum - Expectorated Sputum Culture - Preliminary Klebsiella Oxytoca YEAST Normal Respiratory Hilda Med Orders - Current: Current Medications Acetaminophen (Tylenol) 650 mg PO Q4H PRN PRN Reason: Pain (Mild 1-3)/fever Last Admin: 01/07/20 20:35 Dose: 650 mg Documented by: Albuterol/Ipratropium (Combivent Respimat) 0 gm INH Q6HRRT [facility] Last Admin: 01/07/20 18:12 Dose: 1 puff Documented by: Albuterol/Ipratropium (Duoneb 3.0-0.5 Mg/3 Ml) 3 ml NEB Q4HRRT PRN PRN Reason: Dyspnea Aspirin (Aspirin) 81 mg PO DAILY [facility] Last Admin: 01/07/20 08:23 Dose: 81 mg Documented by: Enoxaparin Sodium (Lovenox) 40 mg SUBCUT BID [facility] Last Admin: 01/07/20 20:36 Dose: 40 mg Documented by: Furosemide (Lasix) 40 mg PO DAILY [facility] Last Admin: 01/07/20 08:23 Dose: 40 mg Documented by: Pantoprazole Sodium 40 mg/ (Sodium Chloride) 10 mls @ 300 mls/hr IV DAILY [facility] Last Admin: 01/07/20 08:23 Dose: 300 mls/hr Documented by: Azithromycin 500 mg/ Sodium (Chloride) 250 mls @ 250 mls/hr IV DAILY [facility] Last Admin: 01/07/20 09:24 Dose: 250 mls/hr Documented by: Levofloxacin/Dextrose 750 mg/ (Premix) 150 mls @ 100 mls/hr IV Q24H [facility] Last Admin: 01/07/20 11:29 Dose: 100 mls/hr Documented by: Insulin Aspart (Novolog) 0 unit SUBCUT TIDAC [facility]; Protocol Last Admin: 01/07/20 18:07 Dose: Not Given Documented by: Methylprednisolone Sodium Succinate (Solu-Medrol) 40 mg IVPUSH Q12H [facility] Last Admin: 01/07/20 11:38 Dose: 40 mg Documented by: Metolazone (Zaroxolyn) 2.5 mg PO MOWEFR [facility] Last Admin: 01/07/20 18:10 Dose: 2.5 mg Documented by: Fluticasone/Umeclidin/Vilanter [ Trelegy Ellipta 100- 62.5-25 Mcg] 1 each INH DAILY [facility] Last Admin: 01/07/20 09:32 Dose: Not Given Documented by: Ondansetron HCl (Zofran) 4 mg IVPUSH Q4H PRN PRN Reason: Nausea Pramipexole Dihydrochloride (Mirapex) 1 mg PO BEDTIME [facility] Last Admin: 01/07/20 20:36 Dose: 1 mg Documented by: Sodium Chloride (Saline Flush) 10 ml FLUSH ASDIRECTED PRN PRN Reason: Keep Vein Open Sodium Chloride (Saline Flush) 2.5 ml FLUSH ASDIRECTED PRN PRN Reason: Keep Vein Open Spironolactone (Aldactone) 25 mg PO DAILY [facility] Last Admin: 01/07/20 08:23 Dose: 25 mg Documented by: Discontinued Medications Albuterol/Ipratropium (Combivent Respimat) 0 gm INH Q4H PRN PRN Reason: Dyspnea Dexamethasone (Dexamethasone) 6 mg IVPUSH DAILY [facility] Last Admin: 01/05/20 15:22 Dose: 6 mg Documented by: Furosemide (Lasix) 20 mg IVPUSH ONETIME ONE Stop: 01/05/20 22:58 Last Admin: 01/05/20 23:41 Dose: 20 mg Documented by: Lactated Ringer's (Ringers, Lactated) 1,000 mls @ 75 mls/hr IV ASDIRECTED [facility] Stop: 01/06/20 04:19 Last Admin: 01/05/20 15:27 Dose: 75 mls/hr Documented by: Methylprednisolone Sodium Succinate (Solu-Medrol) 40 mg IVPUSH Q8H [facility] Last Admin: 01/07/20 06:17 Dose: 40 mg Documented by: Potassium Chloride (Klor-Con M20) 40 meq PO ONETIME ONE Stop: 01/07/20 08:01 Last Admin: 01/07/20 08:22 Dose: 40 meq Documented by: Spironolactone (Aldactone) 25 mg PO DAILY [facility] Sepsis Event Note - Focused Exam Vital Signs: Vital Signs Temp Pulse Resp BP Pulse Ox 01/07/20 20:00 37.1 C 76 20 116/61 90 L 01/07/20 16:07 36.9 C 76 20 121/64 93 L 01/07/20 11:26 37.2 C 79 19 146/79 H 93 L
[2020-01-07] MEDS: Azithromycin 500 MG in Sodium Chloride 0.9% 250 ML IV SCH (09:24)
[2020-01-07] MEDS: Fluticasone/Umeclidin/Vilanter [Trelegy Ellipta 100-62.5-25 Mcg] INH SCH (09:32)
[2020-01-07] MEDS: Levofloxacin/Dextrose 5%-Water 750 MG in Premix Bag 1 BAG IV SCH (11:29)
[2020-01-07] MEDS: Metolazone 5 MG Tab PO SCH (18:10)
[2020-01-07] MEDS: Acetaminophen 325 MG Tab PO PRN (20:35)
[2020-01-07] MEDS: Pramipexole 0.25 MG Tab PO SCH (20:36)
[2020-01-08] MEDS: Insulin Aspart 100 Units/ML 3 ML Pen SUBCUT SCH ×2 (06:29→11:52)
[2020-01-08 06:43] LABS: CARBON DIOXIDE,CO2 31.4 mmol/L (21.0-32.0); POTASSIUM,K 3.3 mmol/L (3.5-5.1)
[2020-01-08] MEDS ORDERED: Potassium Chloride 20 MEQ Tab.ER PO ONE (08:00)
[2020-01-08 08:21] VITALS: BP 134/65
[2020-01-08] MEDS: Enoxaparin 40 MG/0.4 ML Syringe SUBCUT SCH (08:45)
[2020-01-08] MEDS: Aspirin 81 MG Tab.Chew PO SCH (08:45)
[2020-01-08] MEDS: Furosemide 40 MG Tab PO SCH (08:45)
[2020-01-08] MEDS: Spironolactone 25 MG Tab PO SCH (08:45)
[2020-01-08] MEDS: Pantoprazole 40 MG in Sodium Chloride 0.9% 10 ML IV SCH (08:46)
[2020-01-08] MEDS: Azithromycin 500 MG in Sodium Chloride 0.9% 250 ML IV SCH (08:50)
[2020-01-08] MEDS: Fluticasone/Umeclidin/Vilanter [Trelegy Ellipta 100-62.5-25 Mcg] INH SCH (09:47)
[2020-01-08] MEDS: methylPREDNISolone Sodium Succinate 40 MG/1 ML SDV IVPUSH SCH (11:01)
[2020-01-08] MEDS: Levofloxacin/Dextrose 5%-Water 750 MG in Premix Bag 1 BAG IV SCH (11:04)
[2020-01-08] MEDS ORDERED: Furosemide 40 MG/4 ML VIAL IVPUSH ONE (11:33)
--- NOTE | 2020-01-08 11:35 | PCM.DCSUM1 ---
Discharge Summary - Hospital Course Free Text/Narrative:: 84-year-old male admitted for acute on chronic hypoxic hypercapnic respiratory failure secondary to COPD exacerbation vs acute bronchitis. He has a PMH of COPD on home oxygen 3 L, AMRITA on CPAP, RLS and chronic venous stasis. On admission, patient tested positive for COVID19. CXR showed emphysematous changes. He was treated with supplemental oxygen, Combivent INH and IV solumedrol. He was started on IV azithromycin. Sputum culture returned positive for Klebsiella so he was then switched to IV levaquin. Blood cultures were negative. Patient remained hemodynamically stable and reported significant improvement in his breathing and cough on day of discharge. He was given scripts for PO levaquin and prednisone for 4 more days. Advised to self-quarantine for a total of 14 days. He was discharged on his home baseline oxygen requirement of 3L. Of note, patient's HgbA1c was found to be 7.2 and patient was started on levemir 10 mg qd, metformin 500 mg BID and referral to diabetic education as outpatient was made. He was not started on meal-time insulin as his glucose readings are expected to improve after cessation of steroids. Also provided scripts for lancets, pen needles, test strips and glucometer. - Discharge Data Discharge Date: 01/08/20 Discharge Disposition: Home, Self-Care 01 Condition: Stable - Referral to Home Health Primary Care Physician: Robert Keys MD - Patient Summary/Data Consults: Consultations 01/07/20 11:28 Consult to Physical Therapy [PT Evaluation and Treatment] [CONS] Routine - Patient Instructions Diet: Diabetic Diet Activity: As Tolerated Notify Provider of: Fever, Increased Pain, Swelling and Redness, Drainage, Nausea and/or Vomiting Other/Special Instructions: shortness of breath - Discharge Plan *PRESCRIPTION DRUG MONITORING PROGRAM REVIEWED*: Not Applicable *COPY OF PRESCRIPTION DRUG MONITORING REPORT IN PATIENT MICHELLE: Not Applicable Prescriptions/Med Rec: metFORMIN [Glucophage XR] 500 mg PO BIDMEALS 30 Days #60 tab.er Lancets 1 each MC TID #1 box levoFLOXacin [Levaquin] 750 mg PO DAILY 3 Days #3 tab Insulin Detemir [Levemir] 10 unit SUBCUT DAILY 30 Days #3 pen Pen Needle, Diabetic [[place]] 1 each MC DAILY 30 Days #1 box predniSONE [Prednisone] 40 mg PO DAILY 4 Days #8 tablet Blood Sugar Diagnostic [Test Strips] 1 each TID #1 box Home Medications: Home Meds Calcium Carbonate [Calcium] 500 mg PO DAILY 01/11/16 [History] Furosemide 40 mg PO DAILY 01/11/16 [History] Omeprazole 40 mg PO ACBREAKFAST 01/11/16 [History] Potassium Chloride 40 meq PO BID 01/11/16 [History] Pramipexole Di-HCl [Pramipexole Dihydrochloride] 1 - 2 mg PO BEDTIME 03/13/18 [History] Aspirin 81 mg PO DAILY 10/22/19 [History] Fish Oil/[place]-3 Fatty Acids [Fish Oil 1,000 MG] 1 each PO DAILY 10/22/19 [History] Fluticasone/Umeclidin/Vilanter [Trelegy Ellipta 100-62.5-25 MCG] 1 puff INH DAILY 10/22/19 [History] Magnesium 400 mg PO DAILY 10/22/19 [History] Ipratropium [Atrovent] 0.5 mg NEB QID 10/23/19 [History] Multivitamin 1 tab PO DAILY 10/23/19 [History] metOLazone [Metolazone] 2.5 mg PO MOWEFR 10/23/19 [History] Acetaminophen/HYDROcodone [[place] 325-5 MG] 1 tab PO BID PRN 01/05/20 [History] Spironolactone [Aldactone] 254 mg PO DAILY 01/05/20 [History] Sucralfate 1 gm PO BID PRN 01/05/20 [History] Blood Sugar Diagnostic [Test Strips] 1 each TID #1 box 01/08/20 [Rx] Insulin Detemir [Levemir] 10 unit SUBCUT DAILY 30 Days #3 pen 01/08/20 [Rx] Lancets 1 each MC TID #1 box 01/08/20 [Rx] Pen Needle, Diabetic [[place]] 1 each MC DAILY 30 Days #1 box 01/08/20 [Rx] levoFLOXacin [Levaquin] 750 mg PO DAILY 3 Days #3 tab 01/08/20 [Rx] metFORMIN [Glucophage XR] 500 mg PO BIDMEALS 30 Days #60 tab.er 01/08/20 [Rx] predniSONE [Prednisone] 40 mg PO DAILY 4 Days #8 tablet 08/20/20 [Rx] Oxygen Therapy Mode: Nasal Cannula Oxygen Flow Rate (L/min): 3 Patient Handouts: Hypoxia, COVID-19 Frequently Asked Questions, COVID-19, COVID-19: How to Protect Yourself and Others - CDC, Insulin Detemir injection, Metformin tablets, Levofloxacin tablets, Prednisone tablets Referrals: Robert Keys MD [Primary Care Provider] - 01/15/20 4:00 pm (This is a telehealth appointment. Please log onto [employer]. Dr. Keys's ID is [phone]. Please log on 15-20 minutes early. If you have any questions or need assistance logging on, please call the provided phone number.) - Discharge Summary/Plan Comment DC Time >30 min.: No - Patient Data Vitals - Most Recent: Last Vital Signs Temp 36.8 C 01/08/20 08:00 Pulse 70 01/08/20 08:00 Resp 20 01/08/20 08:00 BP 134/65 01/08/20 08:00 Pulse Ox 90 L 01/08/20 08:00 Weight - Most Recent: 136.078 kg I&O - Last 24 hours: Intake & Output 01/07/20 01/08/20 01/08/20 22:59 06:59 14:59 Intake Total 700 900 Output Total 1350 650 Balance -650 250 Lab Results - Last 24 hrs: Laboratory Results - last 24 hr 01/07/20 01/07/20 01/08/20 Range/Units 11:35 18:07 05:23 WBC (4.0-11.0) K/uL RBC (4.50-5.90) M/uL Hgb (13.0-17.0) g/dL Hct (38.0-50.0) % MCV (80.0-98.0) fL MCH (27.0-32.0) pg MCHC (31.0-37.0) g/dL RDW Std Deviation (28.0-62.0) fl RDW Coeff of Yared (11.0-15.0) % Plt Count (150-400) K/uL MPV (7.40-12.00) fL Neut % (Auto) (48.0-80.0) % Lymph % (Auto) (16.0-40.0) % Louisa % (Auto) (0.0-15.0) % Eos % (Auto) (0.0-7.0) % Baso % (Auto) (0.0-1.5) % Neut # (Auto) (1.4-5.7) K/uL Lymph # (Auto) (0.6-2.4) K/uL Louisa # (Auto) (0.0-0.8) K/uL Eos # (Auto) (0.0-0.7) K/uL Baso # (Auto) (0.0-0.1) K/uL Nucleated RBC % /100WBC Nucleated RBCs # K/uL Sodium (136-148) mmol/L Potassium (3.5-5.1) mmol/L Chloride (98-107) mmol/L Carbon Dioxide (21.0-32.0) mmol/L BUN (7.0-18.0) mg/dL Creatinine (0.8-1.3) mg/dL Est Cr Clr Drug Dosing mL/min Estimated GFR (MDRD) ml/min Glucose (74-106) mg/dL POC Glucose 255 H 143 H 205 H (60-110) mg/dL Calcium (8.5-10.1) mg/dL Magnesium (1.8-2.4) mg/dL Total Bilirubin (0.2-1.0) mg/dL AST (15-37) IU/L ALT (14-63) IU/L Alkaline Phosphatase (46-116) U/L Total Protein (6.4-8.2) g/dL Albumin (3.4-5.0) g/dL Globulin (2.6-4.0) g/dL Albumin/Globulin Ratio (0.9-1.6) 01/08/20 01/08/20 01/08/20 Range/Units 05:50 05:50 05:50 WBC 8.07 (4.0-11.0) K/uL RBC 4.14 L (4.50-5.90) M/uL Hgb 14.2 (13.0-17.0) g/dL Hct 42.4 (38.0-50.0) % MCV 102.4 H (80.0-98.0) fL MCH 34.3 H (27.0-32.0) pg MCHC 33.5 (31.0-37.0) g/dL RDW Std Deviation 55.8 (28.0-62.0) fl RDW Coeff of Yared 15 (11.0-15.0) % Plt Count 128 L (150-400) K/uL MPV 10.70 (7.40-12.00) fL Neut % (Auto) 82.1 H (48.0-80.0) % Lymph % (Auto) 8.7 L (16.0-40.0) % Louisa % (Auto) 9.2 (0.0-15.0) % Eos % (Auto) 0.0 (0.0-7.0) % Baso % (Auto) 0.0 (0.0-1.5) % Neut # (Auto) 6.6 H (1.4-5.7) K/uL Lymph # (Auto) 0.7 (0.6-2.4) K/uL [place] # (Auto) 0.7 (0.0-0.8) K/uL Eos # (Auto) 0.0 (0.0-0.7) K/uL Baso # (Auto) 0.0 (0.0-0.1) K/uL Nucleated RBC % 0.0 /100WBC Nucleated RBCs # 0 K/uL Sodium 138 (136-148) mmol/L Potassium 3.3 L (3.5-5.1) mmol/L Chloride 98 (98-107) mmol/L Carbon Dioxide 31.4 (21.0-32.0) mmol/L BUN 33 H (7.0-18.0) mg/dL Creatinine 1.2 (0.8-1.3) mg/dL Est Cr Clr Drug Dosing 45.01 mL/min Estimated GFR (MDRD) 57.5 ml/min Glucose 220 H (74-106) mg/dL POC Glucose (60-110) mg/dL Calcium 8.7 (8.5-10.1) mg/dL Magnesium 2.1 (1.8-2.4) mg/dL Total Bilirubin 0.9 (0.2-1.0) mg/dL AST 39 H (15-37) IU/L ALT 29 (14-63) IU/L Alkaline Phosphatase 59 (46-116) U/L Total Protein 6.4 (6.4-8.2) g/dL Albumin 2.8 L (3.4-5.0) g/dL Globulin 3.6 (2.6-4.0) g/dL Albumin/Globulin Ratio 0.8 L (0.9-1.6) BECKA Results - Last 24 hrs: Microbiology 01/05/20 17:53 Gram Stain - Final Sputum - Expectorated Sputum Culture - Final Klebsiella Oxytoca Morganella Morganii YEAST Normal Respiratory Hilda 01/05/20 16:43 Aerobic Blood Culture - Preliminary Blood - Venous - Lab Draw NO GROWTH AFTER 2 DAYS Anaerobic Blood Culture - Preliminary NO GROWTH AFTER 2 DAYS 01/05/20 15:03 Aerobic Blood Culture - Preliminary Blood - Venous NO GROWTH AFTER 2 DAYS Anaerobic Blood Culture - Final Med Orders - Current: Current Medications Acetaminophen (Tylenol) 650 mg PO Q4H PRN PRN Reason: Pain (Mild 1-3)/fever Last Admin: 01/07/20 20:35 Dose: 650 mg Documented by: Albuterol/Ipratropium (Combivent Respimat) 0 gm INH Q6HRRT [facility] Last Admin: 01/07/20 23:13 Dose: 1 puff Documented by: Albuterol/Ipratropium (Duoneb 3.0-0.5 Mg/3 Ml) 3 ml NEB Q4HRRT PRN PRN Reason: Dyspnea Aspirin (Aspirin) 81 mg PO DAILY [facility] Last Admin: 01/08/20 08:45 Dose: 81 mg Documented by: Enoxaparin Sodium (Lovenox) 40 mg SUBCUT BID [facility] Last Admin: 01/08/20 08:45 Dose: 40 mg Documented by: Furosemide (Lasix) 40 mg PO DAILY [facility] Last Admin: 01/08/20 08:45 Dose: 40 mg Documented by: Furosemide (Lasix) 20 mg IVPUSH NOW ONE Stop: 01/08/20 11:34 Pantoprazole Sodium 40 mg/ (Sodium Chloride) 10 mls @ 300 mls/hr IV DAILY [facility] Last Admin: 01/08/20 08:46 Dose: 300 mls/hr Documented by: Levofloxacin/Dextrose 750 mg/ (Premix) 150 mls @ 100 mls/hr IV Q24H [facility] Last Admin: 01/08/20 11:04 Dose: 100 mls/hr Documented by: Insulin Aspart (Novolog) 0 unit SUBCUT TIDAC [facility]; Protocol Last Admin: 01/08/20 06:29 Dose: 2 units Documented by: Methylprednisolone Sodium Succinate (Solu-Medrol) 40 mg IVPUSH Q12H [facility] Last Admin: 01/08/20 11:01 Dose: 40 mg Documented by: Metolazone (Zaroxolyn) 2.5 mg PO MOWEFR [facility] Last Admin: 01/07/20 18:10 Dose: 2.5 mg Documented by: Fluticasone/Umeclidin/Vilanter [ Trelegy Ellipta 100- 62.5-25 Mcg] 1 each INH DAILY [facility] Last Admin: 01/08/20 09:47 Dose: 1 each Documented by: Ondansetron HCl (Zofran) 4 mg IVPUSH Q4H PRN PRN Reason: Nausea Pramipexole Dihydrochloride (Mirapex) 1 mg PO BEDTIME [facility] Last Admin: 01/07/20 20:36 Dose: 1 mg Documented by: Sodium Chloride (Saline Flush) 10 ml FLUSH ASDIRECTED PRN PRN Reason: Keep Vein Open Sodium Chloride (Saline Flush) 2.5 ml FLUSH ASDIRECTED PRN PRN Reason: Keep Vein Open Spironolactone (Aldactone) 25 mg PO DAILY [facility] Last Admin: 01/08/20 08:45 Dose: 25 mg Documented by: Discontinued Medications Albuterol/Ipratropium (Combivent Respimat) 0 gm INH Q4H PRN PRN Reason: Dyspnea Dexamethasone (Dexamethasone) 6 mg IVPUSH DAILY [facility] Last Admin: 01/05/20 15:22 Dose: 6 mg Documented by: Furosemide (Lasix) 20 mg IVPUSH ONETIME ONE Stop: 01/05/20 22:58 Last Admin: 01/05/20 23:41 Dose: 20 mg Documented by: Azithromycin 500 mg/ Sodium (Chloride) 250 mls @ 250 mls/hr IV DAILY [facility] Last Admin: 01/08/20 08:50 Dose: 250 mls/hr Documented by: Lactated Ringer's (Ringers, Lactated) 1,000 mls @ 75 mls/hr IV ASDIRECTED [facility] Stop: 01/06/20 04:19 Last Admin: 01/05/20 15:27 Dose: 75 mls/hr Documented by: Methylprednisolone Sodium Succinate (Solu-Medrol) 40 mg IVPUSH Q8H [facility] Last Admin: 01/07/20 06:17 Dose: 40 mg Documented by: Potassium Chloride (Klor-Con M20) 40 meq PO ONETIME ONE Stop: 01/07/20 08:01 Last Admin: 01/07/20 08:22 Dose: 40 meq Documented by: Potassium Chloride (Klor-Con M20) 40 meq PO ONETIME ONE Stop: 01/08/20 08:01 Last Admin: 01/08/20 08:44 Dose: 40 meq Documented by: Spironolactone (Aldactone) 25 mg PO DAILY [facility]
[2020-01-08] MEDS: Albuterol/Ipratropium 4 GM Inhalation Spray INH SCH ×2 (11:51→12:02)
[2020-01-08 12:00] VITALS: PULSE 71
== END 2020-01-08 16:00 | disposition home or self-care (01) | DRG 177 ==
LOC: MW.ED 10:04 → MW.MS 12:38
PROVIDERS: ADMIT Student in an Organized Health Care Education/Training Program; ATTEND Student in an Organized Health Care Education/Training Program
DX: U07.1 COVID-19 (principal); H91.90 Unspecified hearing loss, unspecified ear; J44.9 Chronic obstructive pulmonary disease, unspecified; G47.30 Sleep apnea, unspecified; J96.21 Acute and chronic respiratory failure with hypoxia; J96.22 Acute and chronic respiratory failure with hypercapnia; Z68.41 Body mass index [BMI] 40.0-44.9, adult; J44.0 Chronic obstructive pulmonary disease with (acute) lower respiratory infection; Z96.651 Presence of right artificial knee joint; J44.1 Chronic obstructive pulmonary disease with (acute) exacerbation; J20.9 Acute bronchitis, unspecified; G47.33 Obstructive sleep apnea (adult) (pediatric); M19.90 Unspecified osteoarthritis, unspecified site; G25.81 Restless legs syndrome; I87.8 Other specified disorders of veins; H91.92 Unspecified hearing loss, left ear; K21.9 Gastro-esophageal reflux disease without esophagitis; B96.1 Klebsiella pneumoniae [K. pneumoniae] as the cause of diseases classified elsewhere; E66.9 Obesity, unspecified; Z79.82 Long term (current) use of aspirin; Z79.52 Long term (current) use of systemic steroids; Z79.899 Other long term (current) drug therapy; Z87.891 Personal history of nicotine dependence; Z99.81 Dependence on supplemental oxygen; Z79.4 Long term (current) use of insulin
CPT/HCPCS: 36415; 36600; 71046; 80053; 82728; 82803; 83605; 83880; 84484; 85025; 85379; 86140; 93005; 99285; U0002; 82962; 83036; 83735; 85652; 87040; 87070; 87077; 87186; 87205; 94640; 97161-GP; A9270-GY; C9113; J0456; J1100; J1650; J1815-GY; J1940; J1956; J2920; J7050; J7120

== ENCOUNTER 2020-01-10 02:48 | Emergency (ER) | payer MEDICARE, BC, OTHER ==
[2020-01-10] MEDS ORDERED: methylPREDNISolone Sodium Succinate 125 MG/2 ML SDV IVPUSH ONE (02:52)
[2020-01-10] MEDS ORDERED: Sodium Chloride 0.9% 2.5 ML Syringe FLUSH PRN (02:52)
[2020-01-10] MEDS ORDERED: Sodium Chloride 0.9% 10 ML Syringe FLUSH PRN (02:52)
[2020-01-10] MEDS ORDERED: Nitroglycerin 0.4 MG Tab.SL SL ONE (02:54)
--- NOTE | 2020-01-10 03:08 | EDM.PDOC ---
ED HPI GENERAL MEDICAL PROBLEM - General Stated Complaint: SHORTNESS OF BREATH Time Seen by Provider: 01/10/20 02:52 Source of Information: Reports: Patient, EMS, Old Records - History of Present Illness INITIAL COMMENTS - FREE TEXT/NARRATIVE: History of present illness: 84-year-old male brought by EMS presenting with respiratory distress, cough and difficulty breathing. Apparently the patient was just recently hospitalized w ith COVID-19 and was just discharged yesterday. Apparently since being discharged the patient's breathing has progressively worsened. He has history of COPD. He was sent home on 3 L nasal cannula, however EMS reported that when they arrived he was not on oxygen and his oxygen saturation was 75% on room air. They applied a nonrebreather and the patient's oxygen saturation improved to 92%. Patient denies chest pain. He has had a productive cough of whitish- yellowish sputum. No leg pain. Spouse is also ill with COVID. Review of systems: As per history of present illness and below otherwise all systems reviewed and negative. Past medical history: As per history of present illness and as reviewed below otherwise noncontributory. COPD. Surgical history: As per history of present illness and as reviewed below otherwise noncontributory. Social history: No reported history of drug or alcohol abuse. Former smoker Family history: As per history of present illness and as reviewed below otherwise noncontributory. Physical exam: GEN: Moderate respiratory distress, otherwise well appearing, obese HEENT: Atraumatic, normocephalic, mucous membranes moist, whitish productive spu kathy Neck: supple, nontender, trachea midline. Lungs: Moderate distress. Hypoxic Heart: Mildly tachycardic Extremities: Atraumatic. Neurovascularly intact. No calf tenderness. No edema Neuro: Awake, alert, oriented, appears to be oriented to situation though very hard of hearing. Neuro Exam nonfocal. Skin: warm, dry, no lesions, chronic discoloration of the lower extremities Diagnostics: EKG, labs, portable chest x-ray, COVID swab, ABG Therapeutics: Oxygen, BiPAP, Solu-Medrol MDM: Impression: [] Plan: [] Definitive disposition and diagnosis as appropriate pending reevaluation and rev iew of above. bilateral leg Pain Score (Numeric/FACES): 6 - Related Data Allergies Allergy/AdvReac Type Severity Reaction Status Date / Time No Known Allergies Allergy Verified 01/05/20 15:49 Home Meds: Home Meds Calcium Carbonate [Calcium] 500 mg PO DAILY 01/11/16 [History] Furosemide 40 mg PO DAILY 01/11/16 [History] Omeprazole 40 mg PO ACBREAKFAST 01/11/16 [History] Potassium Chloride 40 meq PO BID 01/11/16 [History] Pramipexole Di-HCl [Pramipexole Dihydrochloride] 1 - 2 mg PO BEDTIME 03/13/18 [History] Aspirin 81 mg PO DAILY 10/22/19 [History] Fish Oil/[place]-3 Fatty Acids [Fish Oil 1,000 MG] 1 each PO DAILY 10/22/19 [History] Fluticasone/Umeclidin/Vilanter [Trelegy Ellipta 100-62.5-25 MCG] 1 puff INH DAILY 10/22/19 [History] Magnesium 400 mg PO DAILY 10/22/19 [History] Ipratropium [Atrovent] 0.5 mg NEB QID 10/23/19 [History] Multivitamin 1 tab PO DAILY 10/23/19 [History] metOLazone [Metolazone] 2.5 mg PO MOWEFR 10/23/19 [History] Acetaminophen/HYDROcodone [Galliano 325-5 MG] 1 tab PO BID PRN 01/05/20 [History] Spironolactone [Aldactone] 254 mg PO DAILY 01/05/20 [History] Sucralfate 1 gm PO BID PRN 01/05/20 [History] Blood Sugar Diagnostic [Test Strips] 1 each MC TID #1 box 01/08/20 [Rx] Insulin Detemir [Levemir] 10 unit SUBCUT DAILY 30 Days #3 pen 01/08/20 [Rx] Lancets 1 each MC TID #1 box 01/08/20 [Rx] Pen Needle, Diabetic [Addison] 1 each MC DAILY 30 Days #1 box 01/08/20 [Rx] levoFLOXacin [Levaquin] 750 mg PO DAILY 3 Days #3 tab 01/08/20 [Rx] metFORMIN [Glucophage XR] 500 mg PO BIDMEALS 30 Days #60 tab.er 01/08/20 [Rx] predniSONE [Prednisone] 40 mg PO DAILY 4 Days #8 tablet 01/08/20 [Rx] Past Medical History - Past Health History Medical/Surgical History: Denies Medical/Surgical History HEENT History: Reports: Hard of Hearing Other HEENT 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, 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 Cardiovascular History: Reports: None, SOB on Exertion Respiratory History: Reports: COPD, Sleep Apnea, SOB Other Respiratory History: Sleep apnea with CPAP Gastrointestinal History: Reports: GERD Other Genitourinary History: hx: Balanitis, nocturia Musculoskeletal History: Reports: Arthritis, Osteoarthritis Other Musculoskeletal History: hx: Concussion and they had to drill holes in head to relieve pressure (Many yrs ago), Low back pain, limited walking (has not been able to Golf), Arthritits to LEFT Knee Neurological History: Reports: Other (See Below) Other Neuro History: Restless Legs Psychiatric History: Reports: None Endocrine/Metabolic History: Reports: Obesity/BMI 30+ Hematologic History: Reports: None Immunologic History: Reports: None Oncologic (Cancer) History: Reports: None Other Oncologic History: Several areas froze off his face Dermatologic History: Reports: Venous Stasis Dermatitis Other Dermatologic History: Thin delicate skin - Infectious Disease History Infectious Disease History: Reports: Chicken Pox, Influenza, Measles, Mumps - Past Surgical History HEENT Surgical History: Reports: Oral Surgery Cardiovascular Surgical History: Reports: None Respiratory Surgical History: Reports: None GI Surgical History: Reports: Colonoscopy Endocrine Surgical History: Reports: None Other Neurological Surgeries/Procedures: brain surgery Musculoskeletal Surgical History: Reports: Knee Replacement Other Musculoskeletal Surgeries/Procedures:: Right Total Knee Replacement - History Comment History Comment: ETOH UNKNOWN Social & Family History - Family History Family Medical History: Noncontributory Dermatologic: Reports: Other (See Below) Other Dermatologic Family History: Client stated, "I don't remember what my family from." - Caffeine Use Caffeine Use: Reports: Coffee - Living Situation & Occupation Living situation: Reports: , with Spouse ED ROS GENERAL - Review of Systems Review Of Systems: See Below (See HPI) ED EXAM, GENERAL - Physical Exam Exam: See Below (See HPI) EKG INTERPRETATION EKG Interpretation Comments: KG performed today at 3:06 AM, atrial fibrillation, rate 120, very poor/wavy baseline and respiratory motion artifact. Very limited interpretation. No STEMI. Course - Vital Signs Text/Narrative:: Cough and dyspnea/respiratory distress and hypoxia in setting of COVID infection. O2 saturations improved with oxygen administration. Patient had not been on the oxygen he had been prescribed at time of discharge yesterday. Given O2 supplementation, will check ABG and initiate BiPAP. ABG shows alkalosis, hypoxia without hypercarbia. Patient started on BiPAP and oxygen saturation much improved, decreased work of breathing and patient's coloration appears better, patient reports breathing much improved. Chest x-ray does show developing infiltrates, possibly bacterial pneumonia plus COVID. WBC elevated. Creatinine is also acutely elevated from previous labs drawn last day of hospitalization. Patient given IV fluids. Breathing improved. Discussed with admitting physician, however does not feel comfortable admitting here for the reasons listed below. Discussed with other hospitals in the region in order of distance from this facility, however none with available ICU bed other than [facility]. The patient will be transferred there. Discussed with the line lead there. Discussed plan for deferral of intubation as patient's O2 saturation now 92 to 93%, breathing is comfortable and not distressed, patient is mentating well and speaking clearly without any difficulty. He agrees with this plan. Patient will be transferred by air. Due to current weather patterns, there will be a 2-hour delay for air transfer from the time that I requested transfer initiation. Last Recorded V/S: Last Vital Signs Temp 98.4 F 01/10/20 06:39 Pulse 80 01/10/20 09:00 Resp 42 H 01/10/20 09:00 BP 97/70 01/10/20 09:00 Pulse Ox 92 L 01/10/20 09:00 - Orders/Labs/Meds Orders: Active Orders 24 hr Category Date Time Status EKG Documentation Completion [RC] STAT Care 01/10/20 03:01 Active RT Aerosol Therapy [RC] ASDIRECTED Care 01/10/20 03:30 Active RT BiPAP/CPAP [RC] ASDIRECTED Care 01/10/20 03:01 Active CULTURE BLOOD [BC] Stat Lab 01/10/20 03:45 Results CULTURE BLOOD [BC] Stat Lab 01/10/20 03:55 Results Sodium Chloride 0.9% [Saline Flush] Med 01/10/20 02:52 Active 10 ml FLUSH ASDIRECTED PRN Sodium Chloride 0.9% [Saline Flush] Med 01/10/20 02:52 Active 2.5 ml FLUSH ASDIRECTED PRN Blood Culture x2 Reflex Set [OM.PC] Stat Oth 01/10/20 03:37 Ordered Saline Lock Insert [OM.PC] Stat Ot 01/10/20 02:52 Ordered Medication Orders Sodium Chloride (Saline Flush) 10 ml FLUSH ASDIRECTED PRN PRN Reason: Keep Vein Open Sodium Chloride (Saline Flush) 2.5 ml FLUSH ASDIRECTED PRN PRN Reason: Keep Vein Open Labs: Laboratory Tests 01/10/20 01/10/20 01/10/20 Range/Units 03:03 03:03 03:03 WBC 12.86 H (4.0-11.0) K/uL RBC 4.66 (4.50-5.90) M/uL Hgb 16.3 (13.0-17.0) g/dL Hct 47.2 (38.0-50.0) % MCV 101.3 H (80.0-98.0) fL MCH 35.0 H (27.0-32.0) pg MCHC 34.5 (31.0-37.0) g/dL RDW Std Deviation 54.8 (28.0-62.0) fl RDW Coeff of Yared 15 (11.0-15.0) % Plt Count 143 L (150-400) K/uL MPV 11.40 (7.40-12.00) fL Neut % (Auto) 84.6 H (48.0-80.0) % Lymph % (Auto) 7.6 L (16.0-40.0) % Pickett % (Auto) 7.7 (0.0-15.0) % Eos % (Auto) 0.0 (0.0-7.0) % Baso % (Auto) 0.1 (0.0-1.5) % Neut # (Auto) 10.9 H (1.4-5.7) K/uL Lymph # (Auto) 1.0 (0.6-2.4) K/uL Pickett # (Auto) 1.0 H (0.0-0.8) K/uL Eos # (Auto) 0.0 (0.0-0.7) K/uL Baso # (Auto) 0.0 (0.0-0.1) K/uL Nucleated RBC % 0.0 /100WBC Nucleated RBCs # 0 K/uL INR APTT (18.6-31.3) SEC ABG pH (7.35-7.45) ABG pCO2 (35-45) mmHG ABG pO2 (75-100) mmHG ABG HCO3 (22-26) mEq/L ABG Total CO2 ABG Base Excess (-2.0-2.0) Sodium 138 (136-148) mmol/L Potassium 3.5 (3.5-5.1) mmol/L Chloride 97 L (98-107) mmol/L Carbon Dioxide 27.1 (21.0-32.0) mmol/L BUN 62 H (7.0-18.0) mg/dL Creatinine 2.1 H (0.8-1.3) mg/dL Est Cr Clr Drug Dosing TNP Estimated GFR (MDRD) 30.2 ml/min Glucose 124 H (74-106) mg/dL Calcium 9.2 (8.5-10.1) mg/dL Total Bilirubin 2.0 H (0.2-1.0) mg/dL AST 60 H (15-37) IU/L ALT 54 (14-63) IU/L Alkaline Phosphatase 70 (46-116) U/L Troponin I < 0.050 (0.000-0.056) ng/mL B-Natriuretic Peptide 48 (<100) PG/ML Total Protein 6.5 (6.4-8.2) g/dL Albumin 3.0 L (3.4-5.0) g/dL Globulin 3.5 (2.6-4.0) g/dL Albumin/Globulin Ratio 0.9 (0.9-1.6) COVID-19 (JESSE) (NEGATIVE) 01/10/20 01/10/20 01/10/20 Range/Units 03:03 03:22 03:55 WBC (4.0-11.0) K/uL RBC (4.50-5.90) M/uL Hgb (13.0-17.0) g/dL Hct (38.0-50.0) % MCV (80.0-98.0) fL MCH (27.0-32.0) pg MCHC (31.0-37.0) g/dL RDW Std Deviation (28.0-62.0) fl RDW Coeff of Yared (11.0-15.0) % Plt Count (150-400) K/uL MPV (7.40-12.00) fL Neut % (Auto) (48.0-80.0) % Lymph % (Auto) (16.0-40.0) % Pickett % (Auto) (0.0-15.0) % Eos % (Auto) (0.0-7.0) % Baso % (Auto) (0.0-1.5) % Neut # (Auto) (1.4-5.7) K/uL Lymph # (Auto) (0.6-2.4) K/uL Pickett # (Auto) (0.0-0.8) K/uL Eos # (Auto) (0.0-0.7) K/uL Baso # (Auto) (0.0-0.1) K/uL Nucleated RBC % /100WBC Nucleated RBCs # K/uL INR 1.11 APTT 26.3 (18.6-31.3) SEC ABG pH 7.525 H (7.35-7.45) ABG pCO2 33 L (35-45) mmHG ABG pO2 48 L (75-100) mmHG ABG HCO3 28 H (22-26) mEq/L ABG Total CO2 23.7 ABG Base Excess 5.1 H (-2.0-2.0) Sodium (136-148) mmol/L Potassium (3.5-5.1) mmol/L Chloride (98-107) mmol/L Carbon Dioxide (21.0-32.0) mmol/L BUN (7.0-18.0) mg/dL Creatinine (0.8-1.3) mg/dL Est Cr Clr Drug Dosing Estimated GFR (MDRD) ml/min Glucose (74-106) mg/dL Calcium (8.5-10.1) mg/dL Total Bilirubin (0.2-1.0) mg/dL AST (15-37) IU/L ALT (14-63) IU/L Alkaline Phosphatase (46-116) U/L Troponin I (0.000-0.056) ng/mL B-Natriuretic Peptide (<100) PG/ML Total Protein (6.4-8.2) g/dL Albumin (3.4-5.0) g/dL Globulin (2.6-4.0) g/dL Albumin/Globulin Ratio (0.9-1.6) COVID-19 (JESSE) POSITIVE H (NEGATIVE) 01/10/20 Range/Units 04:34 WBC (4.0-11.0) K/uL RBC (4.50-5.90) M/uL Hgb (13.0-17.0) g/dL Hct (38.0-50.0) % MCV (80.0-98.0) fL MCH (27.0-32.0) pg MCHC (31.0-37.0) g/dL RDW Std Deviation (28.0-62.0) fl RDW Coeff of Yared (11.0-15.0) % Plt Count (150-400) K/uL MPV (7.40-12.00) fL Neut % (Auto) (48.0-80.0) % Lymph % (Auto) (16.0-40.0) % Pickett % (Auto) (0.0-15.0) % Eos % (Auto) (0.0-7.0) % Baso % (Auto) (0.0-1.5) % Neut # (Auto) (1.4-5.7) K/uL Lymph # (Auto) (0.6-2.4) K/uL Pickett # (Auto) (0.0-0.8) K/uL Eos # (Auto) (0.0-0.7) K/uL Baso # (Auto) (0.0-0.1) K/uL Nucleated RBC % /100WBC Nucleated RBCs # K/uL INR APTT (18.6-31.3) SEC ABG pH 7.534 H (7.35-7.45) ABG pCO2 34 L (35-45) mmHG ABG pO2 53 L (75-100) mmHG ABG HCO3 28 H (22-26) mEq/L ABG Total CO2 24.4 ABG Base Excess 5.9 H (-2.0-2.0) Sodium (136-148) mmol/L Potassium (3.5-5.1) mmol/L Chloride (98-107) mmol/L Carbon Dioxide (21.0-32.0) mmol/L BUN (7.0-18.0) mg/dL Creatinine (0.8-1.3) mg/dL Est Cr Clr Drug Dosing Estimated GFR (MDRD) ml/min Glucose (74-106) mg/dL Calcium (8.5-10.1) mg/dL Total Bilirubin (0.2-1.0) mg/dL AST (15-37) IU/L ALT (14-63) IU/L Alkaline Phosphatase (46-116) U/L Troponin I (0.000-0.056) ng/mL B-Natriuretic Peptide (<100) PG/ML Total Protein (6.4-8.2) g/dL Albumin (3.4-5.0) g/dL Globulin (2.6-4.0) g/dL Albumin/Globulin Ratio (0.9-1.6) COVID-19 (JESSE) (NEGATIVE) Meds: Medications Generic Name Dose Route Start Last Admin Trade Name Freq PRN Reason Stop Dose Admin Sodium Chloride 10 ml 01/10/20 02:52 Saline Flush FLUSH ASDIRECTED PRN Keep Vein Open Sodium Chloride 2.5 ml 01/10/20 02:52 Saline Flush FLUSH ASDIRECTED PRN Keep Vein Open Discontinued Medications Generic Name Dose Route Start Last Admin Trade Name Freq PRN Reason Stop Dose Admin Albuterol/Ipratropium Confirm 01/10/20 03:22 01/10/20 04:23 Duoneb 3.0-0.5 Mg/3 Ml Administered 01/10/20 03:23 Not Given Dose 3 ml .ROUTE .STK-MED ONE Albuterol/Ipratropium 6 ml 01/10/20 03:29 01/10/20 03:48 Duoneb 3.0-0.5 Mg/3 Ml NEB 01/10/20 03:30 6 ml ONETIME ONE Administration Sodium Chloride 1,000 mls @ 999 mls/hr 01/10/20 03:29 01/10/20 03:50 Normal Saline IV 01/10/20 04:29 999 mls/hr .Bolus ONE Administration Cefepime HCl 2 gm/ Premix 50 mls @ 100 mls/hr 01/10/20 03:37 01/10/20 03:49 IV 01/10/20 04:06 100 mls/hr ONETIME ONE Administration Cefepime HCl Confirm 01/10/20 03:41 01/10/20 03:49 Maxipime In D5w 1 Gm/50 Ml Administered 01/10/20 03:42 Not Given Dose 100 mls @ as directed .ROUTE .STK-MED ONE Sodium Chloride Confirm 01/10/20 03:42 01/10/20 04:23 Normal Saline (Advbag) Administered 01/10/20 03:43 Not Given Dose 500 mls @ as directed .ROUTE .STK-MED ONE Vancomycin HCl 1 gm/ Sodium 250 mls @ 166 mls/hr 01/10/20 04:04 01/10/20 04:08 Chloride IV 01/10/20 05:34 166 mls/hr ONETIME ONE Administration Methylprednisolone Sodium Succinate 125 mg 01/10/20 02:52 01/10/20 03:50 Solu-Medrol IVPUSH 01/10/20 02:53 125 mg ONETIME ONE Administration Nitroglycerin 0.4 mg 01/10/20 02:54 Nitrostat SL 01/10/20 02:55 Q5M ONE Pramipexole Dihydrochloride 2 mg 01/10/20 08:10 01/10/20 09:13 Mirapex PO 01/10/20 08:11 2 mg STAT STA Administration Pramipexole Dihydrochloride 1 mg 01/10/20 08:24 01/10/20 08:25 Mirapex PO 01/10/20 08:25 Not Given STAT STA Vancomycin HCl Confirm 01/10/20 03:41 01/10/20 04:07 Vancocin Administered 01/10/20 03:42 Not Given Dose 2 gm .ROUTE .STK-MED ONE - Re-Assessments/Exams Free Text/Narrative Re-Assessment/Exam: 01/10/20 03:30 I have reexamined the patient. He is resting comfortably. Respiratory distress is improved. Oxygen saturation on 10 L oxygen mask is 82 to 85%. However his mental status is preserved. Coloration appears appropriate and pink, and he is able to respond quickly and appropriately to questions. As the patient is COVID positive we will defer intubation at this time with permissive hypoxia, however will attempt BiPAP. Patient does occasionally have coughing spells or he brings up thick whitish mucousy appearing substance and does desaturate at that time. Will additionally give 2 duo nebulizer treatments. 01/10/20 04:12 Breathing better on the BiPAP. On 50% O2 supplementation via BiPAP the patient is satting 88%. Case was discussed with Dr. Cortez for admission. Dr. Cortez requests/recommends to transfer the patient as we do not have a negative pressure room in the ICU we do not have any potential COVID treatments available at this hospital at this time. Nearest possible facility is [facility], will discuss case with them as well. 01/10/20 04:[address] Sparks at [facility] for transfer acceptance/admission. He is the hospitalist. He is uncertain if there is an ICU bed available there and he will discuss this with the warehouse receiving clerk and also he would like to await results of the second ABG. He will call me back. 01/10/20 04:46 Reassessed the patient. He is feeling much better. He is able to speak clearly and report that his breathing feels easier and improved. Oxygen saturation 92 to 93% on the BiPAP machine. ABG is minimally improved. At this point based on the patient's clinical examination, intubation would not be indicated. 01/10/20 05:05 [facility] called back and reported that they cannot admit the patient there and he will need to be transferred elsewhere. 01/10/20 05:41 No ICU/COVID isolation beds available at [facility] in [place]. Unable to accept patient at this time 01/10/20 05:44 No ICU/COVID beds available at [facility]. Unable to accept patient at this time 01/10/20 05:48 Case discussed with [facility], they do have an ICU/COVID bed available. Case discussed with physician. Dr. Stoo, line lead accepts the patient at 5:55 AM. They will request flight transfer, via fixed wing due to the long distance between transferring and accepting hospitals and the patient's potential for decline on route. Departure - Departure Time of Disposition: 05:55 Disposition: DC/Tfer to [facility] 02 Preliminary Cause of *Q: Respiratory Failure Clinical Impression: Pneumonia, Acute renal insufficiency, COVID-19, Hypoxia - Discharge Information Referrals: PCP,None [Primary Care Provider] - Critical Care Note - Critical Care Note Total Time (mins): 65 Comments: Dyspneic, hypoxic, respiratory distress, COVID, multifocal pneumonia, discussion with multiple consultants and need for transfer/admission to the ICU Sepsis Event Note (ED) - Focused Exam Vital Signs: Vital Signs Pulse Resp BP Pulse Ox 01/10/20 09:00 80 42 H 97/70 92 L 01/10/20 08:30 81 45 H 107/67 90 L 01/10/20 07:50 82 124/66 91 L - My Orders Last 24 Hours: My Active Orders 01/10/20 02:52 Sodium Chloride 0.9% [Saline Flush] 10 ml FLUSH ASDIRECTED PRN Sodium Chloride 0.9% [Saline Flush] 2.5 ml FLUSH ASDIRECTED PRN Saline Lock Insert [OM.PC] Stat 01/10/20 03:01 EKG Documentation Completion [RC] STAT RT BiPAP/CPAP [RC] ASDIRECTED 01/10/20 03:30 RT Aerosol Therapy [RC] ASDIRECTED 01/10/20 03:37 Blood Culture x2 Reflex Set [OM.PC] Stat 01/10/20 03:45 CULTURE BLOOD [BC] Stat 01/10/20 03:55 CULTURE BLOOD [BC] Stat - Assessment/Plan Last 24 Hours: My Active Orders 01/10/20 02:52 Sodium Chloride 0.9% [Saline Flush] 10 ml FLUSH ASDIRECTED PRN Sodium Chloride 0.9% [Saline Flush] 2.5 ml FLUSH ASDIRECTED PRN Saline Lock Insert [OM.PC] Stat 01/10/20 03:01 EKG Documentation Completion [RC] STAT RT BiPAP/CPAP [RC] ASDIRECTED 01/10/20 03:30 RT Aerosol Therapy [RC] ASDIRECTED 01/10/20 03:37 Blood Culture x2 Reflex Set [OM.PC] Stat 01/10/20 03:45 CULTURE BLOOD [BC] Stat 01/10/20 03:55 CULTURE BLOOD [BC] Stat
[2020-01-10] MEDS ORDERED: Albuterol/Ipratropium 3.0-0.5 MG/3 ML Neb Soln ONE (03:22)
--- NOTE | 2020-01-10 03:28 | CR ---
Indication: Dyspnea, shortness of breath, COVID positive Technique: Chest 1 view Comparison: January 05, 2020 Findings/Impression: Interval development diffuse patchy lung opacities concerning for infection. No significant effusion. No pneumothorax. Stable cardiac size. Degenerative changes in the thoracic spine. Dictated by Ashley Jones MD @ Jan 10 2020 3:24AM Signed by Dr. Ashley Jones @ Jan 10 2020 3:25AM
[2020-01-10] MEDS ORDERED: Sodium Chloride 0.9% 1,000 ML IV ONE (03:29)
[2020-01-10] MEDS ORDERED: Albuterol/Ipratropium 3.0-0.5 MG/3 ML Neb Soln NEB ONE (03:29)
[2020-01-10] MEDS ORDERED: Cefepime 2 GM in Premix Bag 1 BAG IV ONE (03:37)
[2020-01-10] MEDS ORDERED: Vancomycin 2 GM in Sodium Chloride 0.9% 500 ML IV ONE (03:38)
[2020-01-10] MEDS ORDERED: Vancomycin 1 GM AdvVial ONE (03:41)
[2020-01-10] MEDS ORDERED: Sodium Chloride 0.9% 500 ML ONE (03:42)
[2020-01-10 03:43] LABS: BLOOD UREA NITROGEN,BUN 62 mg/dL (7.0-18.0); CARBON DIOXIDE,CO2 27.1 mmol/L (21.0-32.0); CHLORIDE,CL 97 mmol/L (98-107); GLUCOSE RANDOM 124 mg/dL (74-106); POTASSIUM,K 3.5 mmol/L (3.5-5.1); SODIUM,NA 138 mmol/L (136-148)
[2020-01-10] MEDS ORDERED: Pramipexole 0.25 MG Tab PO STA ×2 (08:10→08:24)
[2020-01-10 09:30] VITALS: BP 97/70; PULSE 80
== END 2020-01-10 11:40 ==
LOC: MW.ED 02:48
DX: U07.1 COVID-19 (principal); J12.89 Other viral pneumonia; N28.9 Disorder of kidney and ureter, unspecified; J44.9 Chronic obstructive pulmonary disease, unspecified; M19.90 Unspecified osteoarthritis, unspecified site; K21.9 Gastro-esophageal reflux disease without esophagitis; E66.9 Obesity, unspecified; R09.02 Hypoxemia; Z79.82 Long term (current) use of aspirin; Z79.899 Other long term (current) drug therapy; R06.02 Shortness of breath; I48.91 Unspecified atrial fibrillation
CPT/HCPCS: 36415; 36600; 71045; 80053; 82803; 83880; 84484; 85025; 85610; 85730; 87040; 93005; 94660; 96365; 96367; 96375; 99291; A9270; J0692; J2930; J3370; J7030; J7050; U0002; 93010; 99285; J7620-GY